=== PATIENT | male | born 1930 | race Caucasian/White ===

== ENCOUNTER 2017-02-03 17:35 | Inpatient (IN) | payer MEDICARE, BC ==
[~2017-02-03] VITALS: Ht 182.9 cm; Wt 91.7 kg
[~2017-02-03 17:35] MED LIST: ACET-2321 PO; ASPI-557 PO; CALC-946 PO; CALC500T7 PO; CARV25TA PO; FERR324T4 PO; FLUT16SP EA NOSTRIL; FURO20TA4 PO; PANT40TA25 PO; POTA10TA16 PO; PRAV40TA3 PO; PRED5TAB PO; RIVA20TA PO; SENN-152 PO; SIME125C54 PO; VERA240T PO; VIT1CAPS47 PO; [UNRECOGNIZED DRUG - CODE] PO
--- OUTSIDE RECORDS SUMMARY | 2017-02-03 17:40 | XMS REPORT | CCD ---
Author Author SCOTT BOYKIN Organization Unknown Address [address], [place] [id number] Phone 0 Care Team Providers Care Utilization Management Rn Name Role Phone TORSTEN OLIVARES Attending Physician 0 Vital Signs Unknown or Not Available. Allergies Allergy Code Allergy Type Reaction Status No Known Drug Allergies 0 No known drug allergies Active Procedures Unknown or Not Available. History of Immunizations Unknown or Not Available. Problems Unknown or Not Available. Results COMP METABOLIC - Collect Date/Time: 04/19/2016 10:40 Test Name Code Test Result Test Units Test Ref Range GLUCOSE 165 mg/dL L=70 H=110 BUN 36 mg/dL L=7 H=18 CREATININE 1.64 mg/ dL L=0.60 H=1.30 AGE 85 YEARS GFR 40.2 SODIUM 137 mmol/L L=136 H=145 POTASSIUM 3.8 mmol/ L L=3.5 H=5.1 CHLORIDE 102 mmol/L L=98 H=107 CO2 23 mmol/L L=21 H=32 CALCIUM 9.0 mg/dL L=8.5 H=10.1 AST 18 U/L L=15 H=37 ALT 23 U/L L=12 H=78 ALKALINE PHOS 66 U/ L L=46 H=116 TOTAL PROTEIN 7.1 g/ dL L=6.4 H=8.2 ALBUMIN 3.4 g/dL L=3.4 H=5.0 TOTAL BILI 0.40 mg/ dL L=0.00 H=1.00 PRO B-TYPE NATRIURETIC PEPTIDE - Collect Date/Time: 04/19/2016 10:40 Test Name Code Test Result Test Units Test Ref Range PBNP 468 pg/mL L=0 H=450 CBC W/ DIFF - Collect Date/Time: 04/19/2016 10:40 Test Name Code Test Result Test Units Test Ref Range WBC 14.1 x10^3 L=4.8 H=10.8 RBC 2.48 x10^6 L=4.70 H=6.10 HEMOGLOBIN 7.7 g/dL L=14.0 H=18.0 HEMATOCRIT 22.9 % L=42.0 H=52.0 MCV 92 fL L=80 H=100 MCH 30.8 pg L=27.0 H=33.0 MCHC 33.5 g/dL L=33.0 H=37.0 RDW 14.2 % L=11.5 H=14.5 PLATELETS 172 x10^3 L=150 H=450 MPV 9.2 fL L=7.8 H=11.0 NEUTROPHILS 79.2 % L=40.0 H=80.0 LYMPHOCYTES 11.4 % L=20.0 H=45.0 MONOCYTES 6.7 % L=0.0 H=10.0 EOSINOPHILS 2.7 % L=0.0 H=5.0 BASOPHILS 0.0 % L=0.0 H=2.0 SEG 83 %% L=40 H=80 BAND 2 %% L=0 H=5 LYMPH 8 %% L=20 H=45 MONO 2 %% L=0 H=10 EOS 4 %% L=0 H=5 BASO 1 %% L=0 H=2 ATYP LYMPH 0 %% L=0 H=10 META 0 %% L=0 H=1 REFLEX MAN DIFF YES N/A RBC MORPHOLOGY SEE BELOW N/A ANISO SLIGHT N/A NORMAL: NONE SEEN POIK NONE SEEN N/A NORMAL: NONE SEEN HYPO SLIGHT N/A NORMAL: NONE SEEN MICRO NONE SEEN N/A NORMAL: NONE SEEN MACRO NONE SEEN N/A NORMAL: NONE SEEN POLY NONE SEEN N/A NORMAL: NONE SEEN TOXIC GRAN NONE SEEN N/A NORMAL: NONE SEEN NUCLEATED RBC NONE SEEN N/A NORMAL: NONE SEEN Active Medications Medication Code Dose Units Frequency Route Modification Start Date/Time Aspir Low 81MG Oral Tablet, Enteric Coated [id number] 81 MILLIGRAMS DAILY ORAL 04/20/2016 10:56 Prescription Detail 81 MILLIGRAMS ORAL DAILY Klor-Con M20 20MEQ Oral Tablet, Extended Release [id number] 20 MEQ TWICE A DAY ORAL 04/20/2016 10:56 Prescription Detail 20 MEQ ORAL TWICE A DAY Vitamin D3 5000 IU Oral Tablet [id number] 5000 IU DAILY ORAL 04/20/2016 10:56 Prescription Detail 5000 IU ORAL DAILY Docusate Sodium and Senna 50MG-8.6MG Oral Tablet [id number] 1 EACH AT BEDTIME ORAL 12/31/2015 12:54 Prescription Detail 1 EACH ORAL AT BEDTIME Ferrous Sulfate 325MG Oral Tablet [id number] 325 MILLIGRAMS TWICE A DAY ORAL 12/31/2015 12:54 Prescription Detail 325 MILLIGRAMS ORAL TWICE A DAY Norvasc 10MG Oral Tablet [id number] 10 MILLIGRAMS DAILY ORAL 12/31/2015 12:54 Prescription Detail 10 MILLIGRAMS ORAL DAILY predniSONE 10MG Oral Tablet [id number] 10 MILLIGRAMS DAILY ORAL 12/31/2015 12:54 Prescription Detail 10 MILLIGRAMS ORAL DAILY Fluticasone Prop 0.05MG/Actuation Nasal [place] 682544 2 [place] AT BEDTIME NASAL 12/04/2015 15:10 Prescription Detail 2 [place] NASAL AT BEDTIME PreserVision Areds Oral Capsule, Liquid Filled [id number] 1 EACH DAILY ORAL 12/04/2015 15:10 Prescription Detail 1 EACH ORAL DAILY Lasix 40MG Oral Tablet [id number] 40 MILLIGRAMS DAILY ORAL 10/14/2015 12:24 Prescription Detail 40 MILLIGRAMS ORAL DAILY Colace 100MG Oral Capsule, Liquid Filled [id number] 100 MILLIGRAMS bid BY MOUTH 06/25/2015 10:30 Prescription Detail TAKE 100 MILLIGRAMS BY MOUTH bid Digoxin 0.125MG Oral Tablet [id number] 0.125 MILLIGRAMS DAILY ORAL 06/25/2015 10:29 Prescription Detail 0.125 MILLIGRAMS ORAL DAILY Nature's Blend Vitamin D3 5000IU Oral Tablet [id number] 7103 INTERNATIONAL UNITS DAILY ORAL 2014 10:29 Prescription Detail 5000 INTERNATIONAL UNITS ORAL DAILY Pantoprazole Sodium 40MG Oral Tablet, Enteric Coated [id number] 40 MILLIGRAMS DAILY ORAL 06/25/2015 10:29 Prescription Detail 40 MILLIGRAMS ORAL DAILY Pravastatin 40MG Oral Tablet [id number] 40 MILLIGRAMS DAILY ORAL 06/25/2015 10:29 Prescription Detail 40 MILLIGRAMS ORAL DAILY ZyrTEC 10MG Oral Tablet [id number] 10 MILLIGRAMS NEEDED ORAL 06/25/2015 10:29 Prescription Detail 10 MILLIGRAMS ORAL NEEDED Medications Administered During Visit Unknown or Not Available. Encounters Unknown or Not Available. Social History Smoking Status Code Start Date End Date Former smoker [id number] Patient Decision Aids Unknown or Not Available. Discharge Instructions You were admitted to [facility] on 04/19/2016 10:21 You had the following tests done: CBC W / DIFF COMP METABOLIC PRO B-TYPE NATRIURETIC PEPTIDE You were discharged from [facility] on 04/19/2016 10:21 Should you have any questions prior to discharge, please contact a member of your healthcare team. If you have left the hospital and have any questions, please contact your primary care physician. Chief Complaint and Reason For Visit Chief Complaint Date of Onset LAB Function Status Unknown or Not Available. Plan of Care Unknown or Not Available. Referral/Transition of Care Unknown or Not Available.
--- OUTSIDE RECORDS SUMMARY | 2017-02-03 17:41 | XMS REPORT | CCD ---
Author Author SERGIO TELLEZ Organization Unknown Address [address] [place], [place] [address] Phone 0 Care Team Providers Care Die Maker Stamping Name Role Phone TORSTEN OLIVARES Attending Physician 0 Vital Signs Unknown or Not Available. Allergies Allergy Code Allergy Type Reaction Status No Known Drug Allergies 0 No known drug allergies Active Procedures Unknown or Not Available. History of Immunizations Unknown or Not Available. Problems Unknown or Not Available. Results Unknown or Not Available. Medications Unknown or Not Available. Medications Administered Unknown or Not Available. Encounters Unknown or Not Available. Social History Smoking Status Code Start Date End Date Former smoker [id number] Patient Decision Aids Unknown or Not Available. Discharge Instructions You were admitted to [facility] on 05/27/2014. You were discharged from [facility] on 05/27/2014. Should you have any questions prior to discharge, please contact a member of your healthcare team. If you have left the hospital and have any questions, please contact your primary care physician. Chief Complaint and Reason For Visit Chief Complaint Date of Onset MRI LOW EXT JNT WO CONTR LT Function Status Unknown or Not Available. Plan of Care Unknown or Not Available. Referral/Transition of Care Unknown or Not Available.
--- OUTSIDE RECORDS SUMMARY | 2017-02-03 17:41 | XMS REPORT | CCD ---
Author Author SCOTT BOYKIN Organization Unknown Address [address], [place] [id number] Phone 0 Care Team Providers Care Marine Equipment Design Engineer Name Role Phone TORSTEN OLIVARES Attending Physician 0 C., N Nurse Assisstant 0 T., A Nurse Assisstant 0 M., R Nurse Assisstant 0 Vital Signs Vital Sign Value Unit Date/Time Recent/Initial? BP Systolic 120 mmHg 04/19/2016 12:05 Initial VS BP Diastolic 68 mmHg 04/19/2016 12:05 Initial VS Respiratory Rate 20 bpm 04/19/2016 12:05 Initial VS Heart Rate 91 bpm 12:05 Initial VS O2 % BldC Oximetry 96 % 04/19/2016 12:05 Initial VS Body Temperature 98.4 degrees 04/19/2016 12:05 Initial VS Weight Measured 202 lbs 04/19/2016 12:22 Initial VS Height 72 in 2015 12:22 Initial VS BMI (Body Mass Index) 27.4 kg/m^2 04/19/2016 12:22 Initial VS BSA (Body Surface Area) 2.16 m^2 04/19/2016 12:22 Initial VS BP Systolic 148 mmHg 04/20/2016 08:27 Most Recent VS BP Diastolic 76 mmHg 04/20/2016 08:27 Most Recent VS Respiratory Rate 18 bpm 04/20/2016 08:27 Most Recent VS Heart Rate 88 bpm 11/2015 08:27 Most Recent VS O2 % BldC Oximetry 95 % 04/20/2016 08:27 Most Recent VS Body Temperature 97.9 degrees 04/20/2016 08:27 Most Recent VS Allergies Allergy Code Allergy Type Reaction Status No Known Drug Allergies 0 No known drug allergies Active Procedures Unknown or Not Available. History of Immunizations Unknown or Not Available. Problems Unknown or Not Available. Results BASIC METABOLIC - Collect Date/Time: 04/20/2016 07:12 Test Name Code Test Result Test Units Test Ref Range GLUCOSE 132 mg/dL L=70 H=110 BUN 27 mg/dL L=7 H=18 CREATININE 1.47 mg/ dL L=0.60 H=1.30 AGE 85 YEARS GFR 45.6 SODIUM 138 mmol/L L=136 H=145 POTASSIUM 3.5 mmol/ L L=3.5 H=5.1 CHLORIDE 101 mmol/L L=98 H=107 CO2 27 mmol/L L=21 H=32 CALCIUM 8.7 mg/dL L=8.5 H=10.1 PRO B-TYPE NATRIURETIC PEPTIDE - Collect Date/Time: 04/20/2016 07:12 Test Name Code Test Result Test Units Test Ref Range PBNP 484 pg/mL L=0 H=450 CBC W/ DIFF - Collect Date/Time: 04/20/2016 07:12 Test Name Code Test Result Test Units Test Ref Range WBC 13.9 x10^3 L=4.8 H=10.8 RBC 3.06 x10^6 L=4.70 H=6.10 HEMOGLOBIN 9.5 g/dL L=14.0 H=18.0 HEMATOCRIT 27.7 % L=42.0 H=52.0 MCV 91 fL L=80 H=100 MCH 31.1 pg L=27.0 H=33.0 MCHC 34.4 g/dL L=33.0 H=37.0 RDW 14.1 % L=11.5 H=14.5 PLATELETS 163 x10^3 L=150 H=450 MPV 9.0 fL L=7.8 H=11.0 NEUTROPHILS 78.6 % L=40.0 H=80.0 LYMPHOCYTES 12.4 % L=20.0 H=45.0 MONOCYTES 6.6 % L=0.0 H=10.0 EOSINOPHILS 2.4 % L=0.0 H=5.0 BASOPHILS 0.0 % L=0.0 H=2.0 REFLEX MAN DIFF NO N /A BB ABO/RH - Collect Date/Time: 04/19/2016 10:43 Test Name Code Test Result Test Units Test Ref Range ABO/RH A POSITIVE N/ A BB ANTIBODY SCREEN - Collect Date/Time: 04/19/2016 10:43 Test Name Code Test Result Test Units Test Ref Range AB SCREEN NEGATIVE N /A NORMAL: NEGATIVE BB CROSSMATCH IS - Collect Date/Time: 04/19/2016 10:43 Test Name Code Test Result Test Units Test Ref Range ABO/RH A POSITIVE N/ A AB SCREEN NEGATIVE N /A DONOR ABO/Rh A POSITIVE N/A CROSSMATCH COMPATIBLE N/A PREV REACTION NO N/ A BB CROSSMATCH IS - Collect Date/Time: 04/19/2016 10:43 Test Name Code Test Result Test Units Test Ref Range ABO/RH A POSITIVE N/ A AB SCREEN NEGATIVE N /A DONOR ABO/Rh A POSITIVE N/A CROSSMATCH COMPATIBLE N/A PREV REACTION NO N/ A BB TYPE & HOLD - Collect Date/Time: 04/19/2016 10:43 Test Name Code Test Result Test Units Test Ref Range TYPE & HOLD 2 UNITS N/A ABO/RH A POSITIVE N/ A AB SCREEN NEGATIVE N /A PREV REACTION NO N/ A OCCULT BLOOD STOOL IMMUNOASSAY - Collect Date/Time: 04/19/2016 22:40 Test Name Code Test Result Test Units Test Ref Range OCC BLOOD IM POSITIVE N/A NORMAL: NEGATIVE Active Medications Medication Code Dose Units Frequency Route Modification Start Date/Time Aspir Low 81MG Oral Tablet, Enteric Coated [id number] 81 MILLIGRAMS DAILY ORAL 04/20/2016 10:56 Prescription Detail 81 MILLIGRAMS ORAL DAILY Klor-Con M20 20MEQ Oral Tablet, Extended Release [id number] 20 MEQ TWICE A DAY ORAL 04/20/2016 10:56 Prescription Detail 20 MEQ ORAL TWICE A DAY Vitamin D3 5000 IU Oral Tablet [id number] 5000 IU DAILY ORAL 04/20/2016 10:56 Prescription Detail 5000 IU ORAL DAILY Docusate Sodium and Senna 50MG-8.6MG Oral Tablet [id number] 1 EACH AT BEDTIME ORAL 12/31/2015 12:54 Prescription Detail 1 EACH ORAL AT BEDTIME Ferrous Sulfate 325MG Oral Tablet [id number] 325 MILLIGRAMS TWICE A DAY ORAL 12/31/2015 12:54 Prescription Detail 325 MILLIGRAMS ORAL TWICE A DAY Norvasc 10MG Oral Tablet [id number] 10 MILLIGRAMS DAILY ORAL 12/31/2015 12:54 Prescription Detail 10 MILLIGRAMS ORAL DAILY predniSONE 10MG Oral Tablet [id number] 10 MILLIGRAMS DAILY ORAL 12/31/2015 12:54 Prescription Detail 10 MILLIGRAMS ORAL DAILY Fluticasone Prop 0.05MG/Actuation Nasal [place] 907010 2 [place] AT BEDTIME NASAL 12/04/2015 15:10 Prescription Detail 2 [place] NASAL AT BEDTIME PreserVision Areds Oral Capsule, Liquid Filled 98650282921 1 EACH DAILY ORAL 12/04/2015 15:10 Prescription Detail 1 EACH ORAL DAILY Lasix 40MG Oral Tablet [id number] 40 MILLIGRAMS DAILY ORAL 10/14/2015 12:24 Prescription Detail 40 MILLIGRAMS ORAL DAILY Colace 100MG Oral Capsule, Liquid Filled [id number] 100 MILLIGRAMS bid BY MOUTH 06/25/2015 10:30 Prescription Detail TAKE 100 MILLIGRAMS BY MOUTH bid Digoxin 0.125MG Oral Tablet [id number] 0.125 MILLIGRAMS DAILY ORAL 06/25/2015 10:29 Prescription Detail 0.125 MILLIGRAMS ORAL DAILY Nature's Blend Vitamin D3 5000IU Oral Tablet [id number] 8109 INTERNATIONAL UNITS DAILY ORAL 2014 10:29 Prescription Detail 5000 INTERNATIONAL UNITS ORAL DAILY Pantoprazole Sodium 40MG Oral Tablet, Enteric Coated [id number] 40 MILLIGRAMS DAILY ORAL 06/25/2015 10:29 Prescription Detail 40 MILLIGRAMS ORAL DAILY Pravastatin 40MG Oral Tablet [id number] 40 MILLIGRAMS DAILY ORAL 06/25/2015 10:29 Prescription Detail 40 MILLIGRAMS ORAL DAILY ZyrTEC 10MG Oral Tablet [id number] 10 MILLIGRAMS NEEDED ORAL 06/25/2015 10:29 Prescription Detail 10 MILLIGRAMS ORAL NEEDED Medications Administered During Visit Medication Dose Units Frequency Route Date/Time of Last Dose FUROSEMIDE (LASIX) INJ : 20MG/2ML 40 MG X1 IVP 04/19/2016 18: 26 K (KLOR CON) TAB : 20 MEQ 20 MEQ BID ORAL 04/20/2016 10:35 PREDNISONE (DELTASONE) TAB : 10MG 10 MG DAILY PO 04/20/2016 10: 35 AMLODIPINE (NORVASC) TAB : 5MG 10 MG QD PO 04/20/2016 10:35 NF-Lasix Tablet 40MG 40 MG DAILY ORAL 04/20/2016 10:35 DIGOXIN (LANOXIN) TAB :0.125MG 0.125 MG DAILY ORAL 04/20/2016 10:35 PROTONIX (PANTOPRAZOLE) INJ: 40 MG 40 MG X1 IVP 04/20/2016 11: 17 NS 0.9% INJ : 10ML VIAL 2 EA PRN IVP 04/20/2016 11:19 Encounters Encounter Diagnosis Diagnosis Code Start Date Anemia, unspecified D649 04/19/2016 Social History Smoking Status Code Start Date End Date Former smoker [id number] Patient Decision Aids Unknown or Not Available. Discharge Instructions You were admitted to [facility] on 04/19/2016 12:00 with a principal diagnosis of Anemia, unspecified You had the following tests done: BASIC METABOLIC BB ABO/RH BB ANTIBODY SCREEN BB CROSSMATCH IS BB CROSSMATCH IS BB TYPE & HOLD CBC W/ DIFF OCCULT BLOOD STOOL IMMUNOASSAY PRO B-TYPE NATRIURETIC PEPTIDE You were discharged from [facility] on 04/20/2016 13:13 Should you have any questions prior to discharge, please contact a member of your healthcare team. If you have left the hospital and have any questions, please contact your primary care physician. DIET: REGULAR. Discharge To: Home. Accompanied By: spouse Activities: activity as tolerated Medication Instruction:Pt/Family Member: continue current medications; no changes were made Returned/Dispensed to Patient: medications, clothing, cane, glasses Referral: Dr. Oneill 04/26/16 at 2:30; check in [facility] Chief Complaint and Reason For Visit Chief Complaint Date of Onset SHORTNESS OF BREATH Function Status Unknown or Not Available. Plan of Care Unknown or Not Available. Referral/Transition of Care Unknown or Not Available.
--- OUTSIDE RECORDS SUMMARY | 2017-02-03 17:41 | XMS REPORT | CCD ---
Author Author SCOTT BOYKIN Organization Unknown Address [address], [place] [phone] Phone 0 Care Team Providers Care Portable Grinding Machine Operator Name Role Phone JAKE MCCRAY Attending Physician 0 JIE TELLEZ Physician [phone] Vital Signs Unknown or Not Available. Allergies Allergy Code Allergy Type Reaction Status No Known Drug Allergies 0 No known drug allergies Active Procedures Unknown or Not Available. History of Immunizations Unknown or Not Available. Problems Unknown or Not Available. Results CULTURE BLOOD - Collect Date/Time: 01/18/2016 11:45 Test Name Code Test Result Test Units Test Ref Range SOURCE: LEFT AC N/A Blood Culture, Routine 600-7 Final report N/A CULTURE BLOOD - Collect Date/Time: 01/18/2016 11:40 Test Name Code Test Result Test Units Test Ref Range SOURCE: RIGHT AC N/ A Blood Culture, Routine 600-7 Final report N/A Active Medications Medication Code Dose Units Frequency Route Modification Start Date/Time Docusate Sodium and Senna 50MG-8.6MG Oral Tablet [id number] 1 EACH AT BEDTIME ORAL 12/31/2015 12:54 Prescription Detail 1 EACH ORAL AT BEDTIME Ferrous Sulfate 325MG Oral Tablet [id number] 325 MILLIGRAMS TWICE A DAY ORAL 12/31/2015 12:54 Prescription Detail 325 MILLIGRAMS ORAL TWICE A DAY Klor-Con M20 20MEQ Oral Tablet, Extended Release 100008 40 MEQ TWICE A DAY ORAL 12/31/2015 12:54 Prescription Detail 40 MEQ ORAL TWICE A DAY Norvasc 10MG Oral Tablet [id number] 10 MILLIGRAMS DAILY ORAL 12/31/2015 12:54 Prescription Detail 10 MILLIGRAMS ORAL DAILY predniSONE 10MG Oral Tablet [id number] 10 MILLIGRAMS DAILY ORAL 12/31/2015 12:54 Prescription Detail 10 MILLIGRAMS ORAL DAILY Fluticasone Prop 0.05MG/Actuation Nasal [place] 038156 2 [place] AT BEDTIME NASAL 12/04/2015 15:10 Prescription Detail 2 [place] NASAL AT BEDTIME PreserVision Areds Oral Capsule, Liquid Filled [id number] 1 EACH DAILY ORAL 12/04/2015 15:10 Prescription Detail 1 EACH ORAL DAILY Lasix 40MG Oral Tablet [id number] 40 MILLIGRAMS DAILY ORAL 10/14/2015 12:24 Prescription Detail 40 MILLIGRAMS ORAL DAILY Colace 100MG Oral Capsule, Liquid Filled [id number] 100 MILLIGRAMS bid BY MOUTH 06/25/2015 10:30 Prescription Detail TAKE 100 MILLIGRAMS BY MOUTH bid Aspirin 81MG Oral Tablet [id number] 81 MILLIGRAMS DAILY ORAL 06/25/2015 10:29 Prescription Detail 81 MILLIGRAMS ORAL DAILY Digoxin 0.125MG Oral Tablet [id number] 0.125 MILLIGRAMS DAILY ORAL 06/25/2015 10:29 Prescription Detail 0.125 MILLIGRAMS ORAL DAILY Nature's Blend Vitamin D3 5000IU Oral Tablet [id number] 6226 INTERNATIONAL UNITS DAILY ORAL 2014 10:29 Prescription Detail 5000 INTERNATIONAL UNITS ORAL DAILY Pantoprazole Sodium 40MG Oral Tablet, Enteric Coated [id number] 40 MILLIGRAMS DAILY ORAL 06/25/2015 10:29 Prescription Detail 40 MILLIGRAMS ORAL DAILY Pravastatin 40MG Oral Tablet [id number] 40 MILLIGRAMS DAILY ORAL 06/25/2015 10:29 Prescription Detail 40 MILLIGRAMS ORAL DAILY Xarelto 20MG Oral Tablet [id number] 20 MILLIGRAMS QD ORAL 06/25/2015 10:29 Prescription Detail 20 MILLIGRAMS ORAL QD ZyrTEC 10MG Oral Tablet [id number] 10 MILLIGRAMS NEEDED ORAL 06/25/2015 10:29 Prescription Detail 10 MILLIGRAMS ORAL NEEDED Medications Administered During Visit Unknown or Not Available. Encounters Encounter Diagnosis Diagnosis Code Start Date Sepsis, unspecified organism A419 2015 Social History Smoking Status Code Start Date End Date Former smoker [id number] Patient Decision Aids Unknown or Not Available. Discharge Instructions You were admitted to [facility] on 01/18/2016 11:23 with a principal diagnosis of Sepsis, unspecified organism You had the following tests done: CULTURE BLOOD CULTURE BLOOD You were discharged from [facility] on 01/18/2016 11:23 Should you have any questions prior to discharge, please contact a member of your healthcare team. If you have left the hospital and have any questions, please contact your primary care physician. Chief Complaint and Reason For Visit Unknown or Not Available. Function Status Unknown or Not Available. Plan of Care Unknown or Not Available. Referral/Transition of Care Unknown or Not Available.
--- OUTSIDE RECORDS SUMMARY | 2017-02-03 17:41 | XMS REPORT | CCD ---
Author Author SCOTT BOYKIN Organization Unknown Address [address], [place] [id number] Phone 0 Care Team Providers Care Transfer Clerk Name Role Phone CINDY HAZEL Attending Physician [phone] Gus LUCIO Rounding Physician [phone] Vital Signs Unknown or Not Available. Allergies Allergy Code Allergy Type Reaction Status No Known Drug Allergies 0 No known drug allergies Active Procedures Unknown or Not Available. History of Immunizations Unknown or Not Available. Problems Unknown or Not Available. Results CBC W/ DIFF - Collect Date/Time: 04/27/2016 08:15 Test Name Code Test Result Test Units Test Ref Range WBC 9.7 x10^3 L=4.8 H=10.8 RBC 3.15 x10^6 L=4.70 H=6.10 HEMOGLOBIN 9.6 g/dL L=14.0 H=18.0 HEMATOCRIT 28.3 % L=42.0 H=52.0 MCV 90 fL L=80 H=100 MCH 30.7 pg L=27.0 H=33.0 MCHC 34.0 g/dL L=33.0 H=37.0 RDW 14.8 % L=11.5 H=14.5 PLATELETS 189 x10^3 L=150 H=450 MPV 9.2 fL L=7.8 H=11.0 NEUTROPHILS 72.9 % L=40.0 H=80.0 LYMPHOCYTES 12.7 % L=20.0 H=45.0 MONOCYTES 9.2 % L=0.0 H=10.0 EOSINOPHILS 5.1 % L=0.0 H=5.0 BASOPHILS 0.1 % L=0.0 H=2.0 REFLEX MAN DIFF NO N /A Active Medications Medication Code Dose Units Frequency Route Modification Start Date/Time Aspir Low 81MG Oral Tablet, Enteric Coated [id number] 81 MILLIGRAMS DAILY ORAL 04/20/2016 10:56 Prescription Detail 81 MILLIGRAMS ORAL DAILY Klor-Con M20 20MEQ Oral Tablet, Extended Release [id number] 20 MEQ TWICE A DAY ORAL 04/20/2016 10:56 Prescription Detail 20 MEQ ORAL TWICE A DAY Vitamin D3 5000 IU Oral Tablet [id number] 5000 IU DAILY ORAL 04/20/2016 10:56 Prescription Detail 5000 IU ORAL DAILY Docusate Sodium and Senna 50MG-8.6MG Oral Tablet [id number] 1 EACH AT BEDTIME ORAL 12/31/2015 12:54 Prescription Detail 1 EACH ORAL AT BEDTIME Ferrous Sulfate 325MG Oral Tablet [id number] 325 MILLIGRAMS TWICE A DAY ORAL 12/31/2015 12:54 Prescription Detail 325 MILLIGRAMS ORAL TWICE A DAY Norvasc 10MG Oral Tablet [id number] 10 MILLIGRAMS DAILY ORAL 12/31/2015 12:54 Prescription Detail 10 MILLIGRAMS ORAL DAILY predniSONE 10MG Oral Tablet [id number] 10 MILLIGRAMS DAILY ORAL 12/31/2015 12:54 Prescription Detail 10 MILLIGRAMS ORAL DAILY Fluticasone Prop 0.05MG/Actuation Nasal [place] 706530 2 [place] AT BEDTIME NASAL 12/04/2015 15:10 Prescription Detail 2 [place] NASAL AT BEDTIME PreserVision Areds Oral Capsule, Liquid Filled [id number] 1 EACH DAILY ORAL 12/04/2015 15:10 Prescription Detail 1 EACH ORAL DAILY Lasix 40MG Oral Tablet [id number] 40 MILLIGRAMS DAILY ORAL 10/14/2015 12:24 Prescription Detail 40 MILLIGRAMS ORAL DAILY Colace 100MG Oral Capsule, Liquid Filled [id number] 100 MILLIGRAMS bid BY MOUTH 06/25/2015 10:30 Prescription Detail TAKE 100 MILLIGRAMS BY MOUTH bid Digoxin 0.125MG Oral Tablet [id number] 0.125 MILLIGRAMS DAILY ORAL 06/25/2015 10:29 Prescription Detail 0.125 MILLIGRAMS ORAL DAILY Nature's Blend Vitamin D3 5000IU Oral Tablet [id number] 0124 INTERNATIONAL UNITS DAILY ORAL 2014 10:29 Prescription Detail 5000 INTERNATIONAL UNITS ORAL DAILY Pantoprazole Sodium 40MG Oral Tablet, Enteric Coated [id number] 40 MILLIGRAMS DAILY ORAL 06/25/2015 10:29 Prescription Detail 40 MILLIGRAMS ORAL DAILY Pravastatin 40MG Oral Tablet [id number] 40 MILLIGRAMS DAILY ORAL 06/25/2015 10:29 Prescription Detail 40 MILLIGRAMS ORAL DAILY ZyrTEC 10MG Oral Tablet [id number] 10 MILLIGRAMS NEEDED ORAL 06/25/2015 10:29 Prescription Detail 10 MILLIGRAMS ORAL NEEDED Medications Administered During Visit Unknown or Not Available. Encounters Encounter Diagnosis Diagnosis Code Start Date Anemia, unspecified D649 04/27/2016 Social History Smoking Status Code Start Date End Date Former smoker [id number] Patient Decision Aids Unknown or Not Available. Discharge Instructions You were admitted to [facility] on 04/27/2016 08:09 with a principal diagnosis of Anemia, unspecified You had the following tests done: CBC W / DIFF You were discharged from [facility] on 04/27/2016 08:09 Should you have any questions prior to [...]
--- OUTSIDE RECORDS SUMMARY | 2017-02-03 17:41 | XMS REPORT | Referral Summary ---
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 ramus, SVG to OM, SVG to RCA , SVG to distal circumflex, MARROQUIN to LAD Discharge Diagnosis: Essential hypertension Discharge Diagnosis: Respiratory failure Discharge Diagnosis: Hx of aortic valve replacement with tissue graft Discharge Diagnosis: ASHD (arteriosclerotic heart disease) Discharge Diagnosis: Sepsis Discharge Disposition: 01-Home or Self Care Attending Physician: Mandy Klein MD Admitting Physician: Mandy Klein MD Vital Signs Most recent to 1 oldest [Reference Range]: Temperature Axillary 36.4 degC [35.2-36.7 degC] (10/08/15 4:15 AM) Temperature Oral 36.4 degC [35.8-37.3 degC] (10/09/15 12:06 PM) Apical Heart Rate 60 bpm [60-100 bpm] (10/09/15 2:32 PM) Peripheral Pulse 62 bpm Rate [60-100 bpm] (10/09/15 12:06 PM) Heart Rate Monitored 60 bpm [60-100 bpm] (10/08/15 8:16 PM) Respiratory Rate 18 br/min [14-20 br/min] (10/09/15 8:32 AM) Blood Pressure 139/67 mmHg [90-140/60-90 mmHg] (10/09/15 12:06 PM) SpO2 95 % (10/09/15 12:06 PM) Problem List Condition Effective Dates Status Health Status Informant At risk of pressure Active sore(Confirmed) ASHD Active (arteriosclerotic heart disease)(Confirmed) Dyslipidemia(Confirm Active ed) Essential Active hypertension(Confirm ed) H/O cardiac Active pacemaker(Confirmed) Hx of Active CABG(Confirmed) Hx of aortic valve Active replacement with tissue graft(Confirmed) Knowledge Active deficit(Confirmed)1 PAF (paroxysmal Active atrial fibrillation)(Confir med) Respiratory Active failure(Confirmed) Sepsis(Confirmed) Active Tissue perfusion Active alteration(Confirmed )2 1Problem added automatically by system based on initiation of Knowledge Deficit Plan of Care 2Problem added automatically by system based on initiation of Tissue Perfusion Cerebral Plan of Care Allergies, Adverse Reactions, Alerts No Known Medication Allergies Medications acetaminophen 650 mg, Oral, q4hr, as needed for pain, 0 Refill(s) Start Date: 10/06/15 Status: Ordered ampicillin 1 g injection 12 g, IV, q24hr, X 6 days, # 6 Each, 0 Refill(s), other reason (Rx) Start Date: 10/09/15 Stop Date: 10/15/15 Status: Ordered aspirin 81 mg, Oral, Daily, 0 Refill(s) Start Date: 10/06/15 Status: Ordered Colace 100 mg, Oral, BID, 0 Refill(s) Start Date: 10/06/15 Status: Ordered ferrous sulfate 325 mg, Oral, BID, 0 Refill(s) Start Date: 10/06/15 Status: Ordered Heparin Lock Flush 10 units/mL intravenous solution 10 units 1 mL, IV Push, BID, 0 Refill(s) Start Date: 10/09/15 Status: Ordered Heparin Lock Flush 10 units/mL intravenous solution 10 units 1 mL, IV Push, BID, 0 Refill(s) Start Date: 10/09/15 Status: Ordered Klor-Con M20 20 mEq, Oral, BID, 0 Refill(s) Start Date: 10/06/15 Status: Ordered Lanoxin 187.5 mcg, Oral, Daily, 0 Refill(s) Start Date: 10/06/15 Status: Ordered Lasix 40 mg, Oral, Daily, 0 Refill(s) Start Date: 10/06/15 Status: Ordered Lopressor 50 mg, Oral, BID, 0 Refill(s) Start Date: 10/06/15 Status: Ordered Norvasc 10 mg, Oral, Daily, 0 Refill(s) Start Date: 10/06/15 Status: Ordered Pravachol 40 mg, Oral, Bedtime (once a day), 0 Refill(s) Start Date: 10/06/15 Status: Ordered predniSONE 10 mg, Oral, Daily, 0 Refill(s) Start Date: 10/06/15 Status: Ordered Protonix 40 mg, Oral, Daily, 0 Refill(s) Start Date: 10/06/15 Status: Ordered Proventil HFA 90 mcg/inh inhalation aerosol 2-6 puffs, Inhalation, q2hr, Shortness of Breath/Wheezing, 0 Refill(s) Start Date: 10/09/15 Status: Ordered Senokot S 50 mg-8.6 mg oral tablet 1 tabs, Oral, Daily, Constipation, 0 Refill(s) Start Date: 10/06/15 Status: Ordered Vitamin D3 5,000 Intl_Units, Oral, Daily, 0 Refill(s) Start Date: 10/06/15 Status: Ordered Xarelto 20 mg, Oral, qPM, with food, 0 Refill(s) Start Date: 10/06/15 Status: Ordered ZyrTEC 10 mg, Oral, Daily, 0 Refill(s) Start Date: 10/06/15 Status: Ordered Results Hematology Most recent to 1 oldest [Reference Range]: WBC [4.8-10.8 10.3 10*3/uL 10*3/uL] (10/09/15 6:57 AM) RBC [4.60-6.20] 3.41 *LOW* (10/09/15 6:57 AM) Hgb [14.0-18.0 10.2 gm/dL gm/dL] *LOW* (10/09/15 6:57 AM) Hct [42.0-52.0 %] 32.0 % *LOW* (10/09/15 6:57 AM) MCV [82.0-99.0 fL] 93.8 fL (10/09/15 6:57 AM) MCH [27.0-32.0 pg] 29.9 pg (10/09/15 6:57 AM) MCHC [32.0-36.0 31.9 gm/dL gm/dL] *LOW* (10/09/15 6:57 AM) RDW [11.5-14.5 %] 14.0 % (10/09/15 6:57 AM) Platelet [150-400 247 10*3/uL 10*3/uL] (10/09/15 6:57 AM) MPV [9.4-12.3 fL] 11.1 fL (10/09/15 6:57 AM) Chemistry Most recent to 1 oldest [Reference Range]: Sodium Lvl [136-144 135 mEq/L mEq/L] *LOW* (10/09/15 6:57 AM) Potassium Lvl 3.4 mEq/L [3.6-5.1 mEq/L] *LOW* (10/09/15 6:57 AM) Chloride [99-109 101 mEq/L mEq/L] (10/09/15 6:57 AM) CO2 [22-32 mEq/L] 26 mEq/L (10/09/15 6:57 AM) AGAP [3-20] 8 (10/09/15 6:57 AM) BUN [4-20 mg/dL] 25 mg/dL *HI* (10/09/15 6:57 AM) Glucose Lvl [70-100 100 mg/dL mg/dL] (10/09/15 6:57 AM) Creatinine Lvl 1.17 mg/dL [0.64-1.27 mg/dL] (10/09/15 6:57 AM) eGFR [>60] 59 1 *ABN* (10/09/15 6:57 AM) Calcium Lvl 8.6 mg/dL [8.6-10.0 mg/dL] (10/09/15 6:57 AM) Albumin Lvl [3.5-4.8 2.8 gm/dL gm/dL] *LOW* (10/07/15 6:00 AM) Total Protein 6.4 gm/dL [6.1-7.9 gm/dL] (10/07/15 6:00 AM) Globulin [1.9-4.3 3.6 gm/dL gm/dL] (10/07/15 6:00 AM) ALT [17-63 U/L] 26 U/L (10/07/15 6:00 AM) AST [15-41 U/L] 20 U/L (10/07/15 6:00 AM) Alk Phos [26-104 46 U/L U/L] (10/07/15 6:00 AM) Bili Total [0.2-1.2 0.6 mg/dL 2 mg/dL] (10/07/15 6:00 AM) Magnesium Lvl 2.2 mg/dL [1.8-2.5 mg/dL] (10/09/15 6:57 AM) 1Result Comment: Multiply eGFR results by 1.21 for race. 2Result Comment: Naproxen, specifically the metabolite O-desmethylnaproxen, may cause spurious elevation in Total Bilirubin levels. Therapeutic Drug Monitoring Most recent to 1 oldest [Reference Range]: Digoxin Lvl [0.8-2.0 0.7 ng/mL ng/mL] *LOW* (10/07/15 6:00 AM) Microbiology Reports TEST: Blood Culture1 STATUS: Order in Progress BODY SITE: SOURCE: Blood COLLECTED DATE/TIME: 10/07/15 12:22 PM Blood Culture No growth after 12 hours incubation. Nursing unit will be called if growth is detected. - A blood culture drawn through a catheter with a differential time to positivity at least 2 hours sooner than one drawn from a peripheral vein at the same time suggests a catheter-related bloodstream infection. TEST: Blood Culture STATUS: Order in Progress BODY SITE: SOURCE: Blood COLLECTED DATE/TIME: 10/07/15 12:17 PM Blood Culture No growth after 12 hours incubation. Nursing unit will be called if growth is detected. - A blood culture drawn through a catheter with a differential time to positivity at least 2 hours sooner than one drawn from a peripheral vein at the same time suggests a catheter-related bloodstream infection. INTERPRETIVE DATA 1Aerobic bottle ONLY received Immunizations No data available for this section Procedures No data available for this section Social History Social History Type Response Smoking Status Former smoker; Type: Cigarettes; Tobacco use per day: More than 1 pack; Number of years: 60 Assessment and Plan No data available for this section
--- OUTSIDE RECORDS SUMMARY | 2017-02-03 17:41 | XMS REPORT | CCD ---
Author Author SCOTT BOYKIN Organization Unknown Address [address], [place] [id number] Phone 0 Care Team Providers Care Ice Guard Skating Rink Name Role Phone CINDY HAZEL Attending Physician [phone] ZOILA CUBA Rounding Physician [phone] Vital Signs Unknown or Not Available. Allergies Allergy Code Allergy Type Reaction Status No Known Drug Allergies 0 No known drug allergies Active Procedures Unknown or Not Available. History of Immunizations Unknown or Not Available. Problems Unknown or Not Available. Results COMP METABOLIC - Collect Date/Time: 03/03/2016 13:40 Test Name Code Test Result Test Units Test Ref Range GLUCOSE 131 mg/dL L=70 H=110 BUN 27 mg/dL L=7 H=18 CREATININE 1.56 mg/ dL L=0.60 H=1.30 AGE 85 YEARS GFR 42.6 SODIUM 138 mmol/L L=136 H=145 POTASSIUM 5.2 mmol/ L L=3.5 H=5.1 CHLORIDE 104 mmol/L L=98 H=107 CO2 24 mmol/L L=21 H=32 CALCIUM 9.3 mg/dL L=8.5 H=10.1 AST 31 U/L L=15 H=37 ALT 34 U/L L=12 H=78 ALKALINE PHOS 69 U/ L L=46 H=116 TOTAL PROTEIN 7.4 g/ dL L=6.4 H=8.2 ALBUMIN 3.7 g/dL L=3.4 H=5.0 TOTAL BILI 0.40 mg/ dL L=0.00 H=1.00 LIPID PANEL - Collect Date/Time: 03/03/2016 13:40 Test Name Code Test Result Test Units Test Ref Range CHOLESTEROL 141 mg/ dL L=0 H=200 TRIGLYCERIDES 115 mg /dL L=30 H=150 HDL 53 mg/dL L=40 H=60 LDL, CALC 65 mg/dL L=0 H=100 VLDL 23 mg/dL L=0 H=40 CHOL/HDL RISK 2.7 RATIO L=0.0 H=5.0 PT FASTING: NO N/A DIGOXIN - Collect Date/Time: 03/03/2016 13:40 Test Name Code Test Result Test Units Test Ref Range DIGOXIN 0.90 ng/mL L=0.90 H=2.00 CBC W/ DIFF - Collect Date/Time: 03/03/2016 13:40 Test Name Code Test Result Test Units Test Ref Range WBC 10.4 x10^3 L=4.8 H=10.8 RBC 3.52 x10^6 L=4.70 H=6.10 HEMOGLOBIN 11.5 g/ dL L=14.0 H=18.0 HEMATOCRIT 34.0 % L=42.0 H=52.0 MCV 97 fL L=80 H=100 MCH 32.5 pg L=27.0 H=33.0 MCHC 33.7 g/dL L=33.0 H=37.0 RDW 13.9 % L=11.5 H=14.5 PLATELETS 159 x10^3 L=150 H=450 MPV 9.3 fL L=7.8 H=11.0 NEUTROPHILS 79.0 % L=40.0 H=80.0 LYMPHOCYTES 11.7 % L=20.0 H=45.0 MONOCYTES 7.2 % L=0.0 H=10.0 EOSINOPHILS 2.1 % L=0.0 H=5.0 BASOPHILS 0.0 % L=0.0 H=2.0 REFLEX MAN DIFF NO N /A UA AUTO W/ MICRO - Collect Date/Time: 03/03/2016 13:48 Test Name Code Test Result Test Units Test Ref Range COLOR Yellow N/A NORMAL: Yellow APPEARANCE Clear N/ A NORMAL: Clear GLUCOSE Negative N/ A NORMAL: Negative BILIRUBIN Negative N /A NORMAL: Negative KETONE Negative N/A NORMAL: Negative SPEC GRAVITY 1.015 N /A NORMAL: 1.005-1.030 BLOOD Negative N/A NORMAL: Negative PROTEIN Negative N/ A NORMAL: Negative PH 5.0 N/A NORMAL: 5.0-8.0 UROBILINOGEN 0.2 N/ A NORMAL: Negative NITRITE Negative N/ A NORMAL: Negative LEUKOCYTES Negative N/A NORMAL: Negative MICRO RBC None Seen N/A NORMAL: 0-2 MICRO WBC 2-5 N/A NORMAL: 0-2 BACTERIA None Seen N /A NORMAL: None-Trace EPI CELLS 0-5 N/A NORMAL: 0-15 MUCUS Small N/A NORMAL: None-Small AMORPHOUS None Seen N/A NORMAL: None Seen YEAST None Seen N/A NORMAL: None Seen CRYSTALS None Seen N /A NORMAL: None Seen CAST Hyaline C N/A NORMAL: None Seen URINE CULTURE? NO N/ A Active Medications Medication Code Dose Units Frequency Route Modification Start Date/Time Docusate Sodium and Senna 50MG-8.6MG Oral Tablet [id number] 1 EACH AT BEDTIME ORAL 12/31/2015 12:54 Prescription Detail 1 EACH ORAL AT BEDTIME Ferrous Sulfate 325MG Oral Tablet [id number] 325 MILLIGRAMS TWICE A DAY ORAL 12/31/2015 12:54 Prescription Detail 325 MILLIGRAMS ORAL TWICE A DAY Klor-Con M20 20MEQ Oral Tablet, Extended Release [id number] 40 MEQ TWICE A DAY ORAL 12/31/2015 12:54 Prescription Detail 40 MEQ ORAL TWICE A DAY Norvasc 10MG Oral Tablet [id number] 10 MILLIGRAMS DAILY ORAL 12/31/2015 12:54 Prescription Detail 10 MILLIGRAMS ORAL DAILY predniSONE 10MG Oral Tablet [id number] 10 MILLIGRAMS DAILY ORAL 12/31/2015 12:54 Prescription Detail 10 MILLIGRAMS ORAL DAILY Fluticasone Prop 0.05MG/Actuation Nasal [place] [id number] 2 [place] AT BEDTIME NASAL 12/04/2015 15:10 Prescription Detail 2 [place] NASAL AT BEDTIME PreserVision Areds Oral Capsule, Liquid Filled [id number] 1 EACH DAILY ORAL 12/04/2015 15:10 Prescription Detail 1 EACH ORAL DAILY Lasix 40MG Oral Tablet [id number] 40 MILLIGRAMS DAILY ORAL 10/14/2015 12:24 Prescription Detail 40 MILLIGRAMS ORAL DAILY Colace 100MG Oral Capsule, Liquid Filled [id number] 100 MILLIGRAMS bid BY MOUTH 06/25/2015 10:30 Prescription Detail TAKE 100 MILLIGRAMS BY MOUTH bid Aspirin 81MG Oral Tablet [id number] 81 MILLIGRAMS DAILY ORAL 06/25/2015 10:29 Prescription Detail 81 MILLIGRAMS ORAL DAILY Digoxin 0.125MG Oral Tablet [id number] 0.125 MILLIGRAMS DAILY ORAL 06/25/2015 10:29 Prescription Detail 0.125 MILLIGRAMS ORAL DAILY Nature's Blend Vitamin D3 5000IU Oral Tablet [id number] 8125 INTERNATIONAL UNITS DAILY ORAL 2014 10:29 Prescription Detail 5000 INTERNATIONAL UNITS ORAL DAILY Pantoprazole Sodium 40MG Oral Tablet, Enteric Coated 605770 40 MILLIGRAMS DAILY ORAL 06/25/2015 10:29 Prescription Detail 40 MILLIGRAMS ORAL DAILY Pravastatin 40MG Oral Tablet [id number] 40 MILLIGRAMS DAILY ORAL 06/25/2015 10:29 Prescription Detail 40 MILLIGRAMS ORAL DAILY Xarelto 20MG Oral Tablet [id number] 20 MILLIGRAMS QD ORAL 06/25/2015 10:29 Prescription Detail 20 MILLIGRAMS ORAL QD ZyrTEC 10MG Oral Tablet [id number] 10 MILLIGRAMS NEEDED ORAL 06/25/2015 10:29 Prescription Detail 10 MILLIGRAMS ORAL NEEDED Medications Administered During Visit Unknown or Not Available. Encounters Encounter Diagnosis Diagnosis Code Start Date Iron deficiency anemia, unspecified D509 03/03/2016 Social History Smoking Status Code Start Date End Date Former smoker [id number] Patient Decision Aids Unknown or Not Available. Discharge Instructions You were admitted to [facility] on 03/03/2016 13:31 with a principal diagnosis of Iron deficiency anemia, unspecified You had the following tests done: CBC W / DIFF COMP METABOLIC DIGOXIN LIPID PANEL UA AUTO W/ MICRO You were discharged from [facility] on 03/03/2016 13:31 Should you have any questions prior to [...]
--- OUTSIDE RECORDS SUMMARY | 2017-02-03 17:41 | XMS REPORT | CCD ---
Author Author SCOTT BOYKIN Organization Unknown Address [address] [place], [place] [id number] Phone 0 Care Team Providers Care Hospital Administrator Name Role Phone JAKE MCCRAY Attending Physician 0 JIE TELLEZ Physician [phone] Vital Signs Unknown or Not Available. Allergies [...] Docusate Sodium and Senna 50MG-8.6MG Oral Tablet [id number] 1 EACH AT BEDTIME ORAL 12/31/2015 12:54 Prescription Detail 1 EACH ORAL AT BEDTIME Ferrous Sulfate 325MG Oral Tablet [id number] 325 MILLIGRAMS TWICE A DAY ORAL 12/31/2015 12:54 Prescription Detail 325 MILLIGRAMS ORAL TWICE A DAY Klor-Con M20 20MEQ Oral Tablet, Extended Release [id number] 40 MEQ TWICE A DAY ORAL 12/31/2015 12:54 Prescription Detail 40 MEQ ORAL TWICE A DAY Norvasc 10MG Oral Tablet [id number] 10 MILLIGRAMS DAILY ORAL 12/31/2015 12:54 Prescription Detail 10 MILLIGRAMS ORAL DAILY predniSONE 10MG Oral Tablet [id number] 10 MILLIGRAMS DAILY ORAL 12/31/2015 12:54 Prescription Detail 10 MILLIGRAMS ORAL DAILY Fluticasone Prop 0.05MG/Actuation Nasal [place] 034654 2 [place] AT BEDTIME NASAL 12/04/2015 15:10 Prescription Detail 2 [place] NASAL AT BEDTIME PreserVision Areds Oral Capsule, Liquid Filled [id number] 1 EACH DAILY ORAL 12/04/2015 15:10 Prescription Detail 1 EACH ORAL DAILY Lasix 40MG Oral Tablet [id number] 40 MILLIGRAMS DAILY ORAL 10/14/2015 12:24 Prescription Detail 40 MILLIGRAMS ORAL DAILY Colace 100MG Oral Capsule, Liquid Filled [id number] 100 MILLIGRAMS bid BY MOUTH 06/25/2015 10:30 Prescription Detail TAKE 100 MILLIGRAMS BY MOUTH bid Aspirin 81MG Oral Tablet [id number] 81 MILLIGRAMS DAILY ORAL 06/25/2015 10:29 Prescription Detail 81 MILLIGRAMS ORAL DAILY Digoxin 0.125MG Oral Tablet [id number] 0.125 MILLIGRAMS DAILY ORAL 06/25/2015 10:29 Prescription Detail 0.125 MILLIGRAMS ORAL DAILY Nature's Blend Vitamin D3 5000IU Oral Tablet 166415 9255 INTERNATIONAL UNITS DAILY ORAL 2014 10:29 Prescription Detail 5000 INTERNATIONAL UNITS ORAL DAILY Pantoprazole Sodium 40MG Oral Tablet, Enteric Coated [id number] 40 MILLIGRAMS DAILY ORAL 06/25/2015 10:29 Prescription Detail 40 MILLIGRAMS ORAL DAILY Pravastatin 40MG Oral Tablet [id number] 40 MILLIGRAMS DAILY ORAL 06/25/2015 10:29 Prescription Detail 40 MILLIGRAMS ORAL DAILY Xarelto 20MG Oral Tablet [id number] 20 MILLIGRAMS QD ORAL 06/25/2015 10:29 Prescription Detail 20 MILLIGRAMS ORAL QD ZyrTEC 10MG Oral Tablet [id number] 10 MILLIGRAMS NEEDED ORAL 06/25/2015 10:29 Prescription Detail 10 MILLIGRAMS ORAL NEEDED Medications Administered During Visit Unknown or Not Available. Encounters Encounter Diagnosis Diagnosis Code Start Date Sepsis, unspecified organism A419 2015 Social History Smoking Status Code Start Date End Date Former smoker [id number] Patient Decision Aids Unknown or Not Available. Discharge Instructions You were admitted to [facility] on 01/18/2016 11:23 with a principal diagnosis of Sepsis, unspecified organism You had the following tests done: CULTURE BLOOD CULTURE BLOOD You were discharged from [facility] on 01/18/2016 11:23 Should you have [...]
--- OUTSIDE RECORDS SUMMARY | 2017-02-03 17:41 | XMS REPORT | CCD ---
Author Author SCOTT BOYKIN Organization Unknown Address [address] [place], [place] [id number] Phone 0 Care Team Providers Care Statistical Assistant Name Role Phone JAKE MCCRAY Attending Physician 0 C., N Nurse Assisstant 0 H., A Nurse Assisstant 0 T., A Nurse Assisstant 0 M., R Nurse Assisstant 0 Vital Signs Vital Sign Value Unit Date/Time Recent/Initial? BP Systolic 144 mmHg 12/02/2015 11:28 Initial VS BP Diastolic 79 mmHg 12/02/2015 11:28 Initial VS Respiratory Rate 20 bpm 12/02/2015 20:02 Initial VS Heart Rate 67 bpm 20:02 Initial VS O2 % BldC Oximetry 95 % 12/02/2015 20:02 Initial VS Body Temperature 98.3 degrees 12/02/2015 20:02 Initial VS Weight Measured 194 lbs 12/04/2015 06:05 Initial VS BP Systolic 158 mmHg 12/04/2015 15:08 Most Recent VS BP Diastolic 84 mmHg 12/04/2015 15:08 Most Recent VS Respiratory Rate 20 bpm 12/04/2015 15:08 Most Recent VS Heart Rate 69 bpm 15:08 Most Recent VS O2 % BldC Oximetry 91 % 12/04/2015 15:08 Most Recent VS Body Temperature 97.5 degrees 12/04/2015 15:08 Most Recent VS Allergies Allergy Code Allergy Type Reaction Status No Known Drug Allergies 0 No known drug allergies Active Procedures Unknown or Not Available. History of Immunizations Unknown or Not Available. Problems Unknown or Not Available. Results Unknown or Not Available. Active Medications Medication Code Dose Units Frequency Route Modification Start Date/Time Fluticasone Prop 0.05MG/Actuation Nasal [place] 171739 2 [place] AT BEDTIME NASAL 12/04/2015 15:10 Prescription Detail 2 [place] NASAL AT BEDTIME PreserVision Areds Oral Capsule, Liquid Filled [id number] 1 EACH DAILY ORAL 12/04/2015 15:10 Prescription Detail 1 EACH ORAL DAILY Lasix 40MG Oral Tablet [id number] 40 MILLIGRAMS DAILY ORAL 10/14/2015 12:24 Prescription Detail 40 MILLIGRAMS ORAL DAILY Colace 100MG Oral Capsule, Liquid Filled [id number] 100 MILLIGRAMS bid BY MOUTH 06/25/2015 10:30 Prescription Detail TAKE 100 MILLIGRAMS BY MOUTH bid Aspirin 81MG Oral Tablet [id number] 81 MILLIGRAMS DAILY ORAL 06/25/2015 10:29 Prescription Detail 81 MILLIGRAMS ORAL DAILY Digoxin 0.125MG Oral Tablet [id number] 0.125 MILLIGRAMS DAILY ORAL 06/25/2015 10:29 Prescription Detail 0.125 MILLIGRAMS ORAL DAILY Nature's Blend Vitamin D3 5000IU Oral Tablet [id number] 8712 INTERNATIONAL UNITS DAILY ORAL 2014 10:29 Prescription Detail 5000 INTERNATIONAL UNITS ORAL DAILY Pantoprazole Sodium 40MG Oral Tablet, Enteric Coated [id number] 40 MILLIGRAMS DAILY ORAL 06/25/2015 10:29 Prescription Detail 40 MILLIGRAMS ORAL DAILY Pravastatin 40MG Oral Tablet [id number] 40 MILLIGRAMS DAILY ORAL 06/25/2015 10:29 Prescription Detail 40 MILLIGRAMS ORAL DAILY Xarelto 20MG Oral Tablet [id number] 20 MILLIGRAMS QD ORAL 06/25/2015 10:29 Prescription Detail 20 MILLIGRAMS ORAL QD ZyrTEC 10MG Oral Tablet [id number] 10 MILLIGRAMS NEEDED ORAL 06/25/2015 10:29 Prescription Detail 10 MILLIGRAMS ORAL NEEDED Medications Administered During Visit Medication Dose Units Frequency Route Date/Time of Last Dose PANTOPRAZOLE (PROTONIX) TAB : 40MG 40 MG QD PO 12/04/2015 07: 44 DIGOXIN (LANOXIN) TAB :0.125MG 0.125 MG QD PO 12/04/2015 07:44 VITAMIN D CAP: 5000 UNITS 5000 UNITS DAILY PO 12/04/2015 07:44 PREDNISONE 20MG TAB 20 MG QD PO 12/04/2015 07:44 METOPROLOL (TOPROL) TAB : 50MG 50 MG BID PO 12/04/2015 07:44 DOCUSATE (COLACE) CAP : 100MG 100 MG DAILY PO 12/04/2015 07:44 AMLODIPINE (NORVASC) TAB : 5MG 5 MG DAILY/HS PO 12/03/2015 20: 18 PRAVASTATIN (PRAVACHOL) TAB : 40MG 40 MG DAILY/HS PO 2015 20:18 ACETAMINOPHEN (TYLENOL) TAB : 325MG 650 MG PRN Q6H PO 2015 11:15 ASPIRIN EC TAB : 81 MG 81 MG QD ORAL 12/04/2015 07:44 XARELTO TAB: 20 MG 20 MG QD PO 12/04/2015 07:45 FLONASE (FLUTICASONE)NASAL SPRAY:50 MCG 2 SPRAY DAILY/HS TOPICAL 12/03/2015 20:50 OCUVITE TAB: 1 TAB QD PO 12/04/2015 07:44 FUROSEMIDE (LASIX)TAB:20 MG 40 MG QD PO 12/04/2015 07:44 SALINE FLUSH 10ML SYRINGE : IV 10 ML PRN IV PUSH 12/04/2015 13: 22 HALOPERIDOL (HALDOL) TAB : 5MG 5 MG DAILY/HS PO 12/03/2015 20: 18 AMPICILLIN 2 GRAM: IV 4 GRAMS TID IVPB 12/04/2015 13:22 NS 0.9% 250ML 250 ML TID IV 12/04/2015 13:23 K (KLOR CON) TAB : 20 MEQ 20 MEQ BID PO 12/04/2015 07:44 Encounters Encounter Diagnosis Diagnosis Code Start Date Bacteremia [id number] 12/02/2015 Social History Smoking Status Code Start Date End Date Former smoker [id number] Patient Decision Aids Patient Decision Aid Patient Portal Access Discharge Instructions You were admitted to [facility] on 12/02/2015 with a principal diagnosis of Bacteremia. You were discharged from [facility] on 12/04/2015. Should you have any questions prior to discharge, please contact a member of your healthcare team. If you have left the hospital and have any questions, please contact your primary care physician. Discharge To:[facility] Mode of Transportation:Ambulance. Accompanied By:EMS CREW Mental Status:Alert & oriented. Bowel/Bladder Status:No problem. Service Upon Discharge:PT IS BEING TRANSFERED TO [facility] TO HAVE HIS PACEMAKERREPLACED. Equipment Upon Discharge:PT USES A CANE Returned /Dispensed to Patient:PT OWN MEDS RETURNED Temperature: Afebrile. Pain Status:Denies pain at this time. Skin Integrity:PT HAS SCABS ON THE TOP OF HIS RIGHT HAND Pulmonary Status:Lungs clear bilaterally. Nurse' s Notes:PT HAS RAC PICC, LAST FLUSHED WITH 10CC NS AT 14:45. Chief Complaint and Reason For Visit Chief Complaint Date of Onset STREP SEPSIS/ENDOCARDITIS Function Status Unknown or Not Available. Plan of Care Unknown or Not Available. Referral/Transition of Care Unknown or Not Available.
--- OUTSIDE RECORDS SUMMARY | 2017-02-03 17:41 | XMS REPORT | CCD ---
Author Author SCOTT BOYKIN Organization Unknown Address [address], [place] [id number] Phone 0 Care Team Providers Care Multi Sensor Operator Name Role Phone YASEMINCINDY COONEY Attending Physician [phone] Vital Signs Unknown or Not Available. Allergies Allergy Code Allergy Type Reaction Status No Known Drug Allergies 0 No known drug allergies Active Procedures Unknown or Not Available. History of Immunizations Immunization Code Date Td (adult), adsorbed 09 11/20/2005 pneumococcal polysaccharide PPV23 33 Influenza, seasonal, injectable 141 09/02 Problems Unknown or Not Available. Results Unknown or Not Available. Active Medications Medication Code Dose Units Frequency Route Modification Start Date/Time Verapamil HCl 180MG Oral Tablet, Extended Release [id number] 1 TABLET TWICE A DAY BY MOUTH 07/08/2016 11: 19 Prescription Detail TAKE 1 TABLET BY MOUTH TWICE A DAY Multaq 400MG Oral Tablet [id number] 400 MILLIGRAMS TWICE A DAY ORAL 07/08/2016 10:35 Prescription Detail 400 MILLIGRAMS ORAL TWICE A DAY Nitrostat 0.4MG Sublingual Tablet 274147 0.4 MILLIGRAMS NEEDED SUBLINGUAL 07/08/2016 10:[address] 0.4 MILLIGRAMS SUBLINGUAL NEEDED predniSONE 5MG Oral Tablet 212267 5 MILLIGRAMS DAILY ORAL 07/08/2016 10:35 Prescription Detail 5 MILLIGRAMS ORAL DAILY Xarelto 20MG Oral Tablet [id number] 20 MILLIGRAMS DAILY ORAL 07/08/2016 10:35 Prescription Detail 20 MILLIGRAMS ORAL DAILY Aspir Low 81MG Oral Tablet, Enteric Coated [id number] 81 MILLIGRAMS DAILY ORAL 04/20/2016 10:56 Prescription Detail 81 MILLIGRAMS ORAL DAILY Klor-Con M20 20MEQ Oral Tablet, Extended Release [id number] 20 MEQ TWICE A DAY ORAL 04/20/2016 10:56 Prescription Detail 20 MEQ ORAL TWICE A DAY Vitamin D3 5000 IU Oral Tablet [id number] 5000 IU DAILY ORAL 04/20/2016 10:56 Prescription Detail 5000 IU ORAL DAILY Docusate Sodium and Senna 50MG-8.6MG Oral Tablet [id number] 1 EACH AT BEDTIME ORAL 12/31/2015 12:54 Prescription Detail 1 EACH ORAL AT BEDTIME Ferrous Sulfate 325MG Oral Tablet [id number] 325 MILLIGRAMS TWICE A DAY ORAL 12/31/2015 12:54 Prescription Detail 325 MILLIGRAMS ORAL TWICE A DAY Fluticasone Prop 0.05MG/Actuation Nasal Frederic 2108298 2 Frederic AT BEDTIME NASAL 12/04/2015 15:10 Prescription Detail 2 Frederic NASAL AT BEDTIME PreserVision Areds Oral Capsule, Liquid Filled [id number] 1 EACH DAILY ORAL 12/04/2015 15:10 Prescription Detail 1 EACH ORAL DAILY Lasix 40MG Oral Tablet [id number] 40 MILLIGRAMS DAILY ORAL 10/14/2015 12:24 Prescription Detail 40 MILLIGRAMS ORAL DAILY Digoxin 0.125MG Oral Tablet 497277 0.125 MILLIGRAMS DAILY ORAL 06/25/2015 10:29 Prescription Detail 0.125 MILLIGRAMS ORAL DAILY Pantoprazole Sodium 40MG Oral Tablet, Enteric Coated [id number] 40 MILLIGRAMS DAILY ORAL 06/25/2015 10:29 Prescription Detail 40 MILLIGRAMS ORAL DAILY Pravastatin 40MG Oral Tablet 154102 40 MILLIGRAMS DAILY ORAL 06/25/2015 10:29 Prescription Detail 40 MILLIGRAMS ORAL DAILY ZyrTEC 10MG Oral Tablet [id number] 10 MILLIGRAMS NEEDED ORAL 06/25/2015 10:29 Prescription Detail 10 MILLIGRAMS ORAL NEEDED Medications Administered During Visit Unknown or Not Available. Encounters Encounter Diagnosis Diagnosis Code Start Date Muscle weakness (generalized) M6281 07/14 Social History Smoking Status Code Start Date End Date Former smoker [id number] Patient Decision Aids Unknown or Not Available. Discharge Instructions You were admitted to [facility] on 2016 12:24 with a principal diagnosis of Muscle weakness (generalized) You were discharged from [facility] Should you have any questions prior to discharge, please contact a member of your healthcare team. If you have left the hospital and have any questions, please contact your primary care physician. Chief Complaint and Reason For Visit Chief Complaint Date of Onset PT Function Status Unknown or Not Available. Plan of Care Unknown or Not Available. Referral/Transition of Care Unknown or Not Available.
--- OUTSIDE RECORDS SUMMARY | 2017-02-03 17:41 | XMS REPORT | CCD ---
Author Author SCOTT BOYKIN Organization Unknown Address [address], [place] [id number] Phone 0 Care Team Providers Care Reconstructive Dentist Name Role Phone JAKE MCCRAY Attending Physician 0 Vital Signs Unknown or Not Available. Allergies Allergy Code Allergy Type Reaction Status No Known Drug Allergies 0 No known drug allergies Active Procedures Procedure Code Procedure Type Date CHEST [id number] 10/22/2015 History of Immunizations Unknown or Not Available. Problems Unknown or Not Available. Results C-REACTIVE PROTEIN - Collect Date/Time: 10/22/2015 11:30 Test Name Code Test Result Test Units Test Ref Range CRP 5 mg/L L=0 H=5 COMP METABOLIC - Collect Date/Time: 10/22/2015 11:30 Test Name Code Test Result Test Units Test Ref Range GLUCOSE 124 mg/dL L=70 H=110 BUN 31 mg/dL L=7 H=18 CREATININE 1.70 mg/ dL L=0.60 H=1.30 AGE 85 YEARS GFR 41.0 SODIUM 136 mmol/L L=136 H=145 POTASSIUM 4.5 mmol/ L L=3.5 H=5.1 CHLORIDE 100 mmol/L L=98 H=107 CO2 27 mmol/L L=21 H=32 CALCIUM 10.0 mg/dL L=8.5 H=10.1 AST 21 U/L L=15 H=37 ALT 22 U/L L=12 H=78 ALKALINE PHOS 83 U/ L L=46 H=116 TOTAL PROTEIN 8.6 g/ dL L=6.4 H=8.2 ALBUMIN 3.8 g/dL L=3.4 H=5.0 TOTAL BILI 0.40 mg/ dL L=0.00 H=1.00 LACTIC ACID - Collect Date/Time: 10/22/2015 11:30 Test Name Code Test Result Test Units Test Ref Range LACTIC ACID 2.6 mmol /L L=0.4 H=2.0 CBC W/ DIFF - Collect Date/Time: 10/22/2015 11:30 Test Name Code Test Result Test Units Test Ref Range WBC 11.5 x10^3 L=4.8 H=10.8 RBC 4.19 x10^6 L=4.70 H=6.10 HEMOGLOBIN 12.4 g/ dL L=14.0 H=18.0 HEMATOCRIT 38.8 % L=42.0 H=52.0 MCV 93 fL L=80 H=100 MCH 29.7 pg L=27.0 H=33.0 MCHC 32.0 g/dL L=33.0 H=37.0 RDW 14.5 % L=11.5 H=14.5 PLATELETS 197 x10^3 L=150 H=450 MPV 10.4 fL L=7.8 H=11.0 NEUTROPHILS 76.7 % L=40.0 H=80.0 LYMPHOCYTES 14.8 % L=20.0 H=45.0 MONOCYTES 5.7 % L=0.0 H=10.0 EOSINOPHILS 2.8 % L=0.0 H=5.0 BASOPHILS 0.0 % L=0.0 H=2.0 REFLEX MAN DIFF NO N /A SED RATE AUTO - Collect Date/Time: 10/22/2015 11:30 Test Name Code Test Result Test Units Test Ref Range SED RATE 55 mm/HR L=0 H=10 UA AUTO W/ MICRO - Collect Date/Time: 10/22/2015 11:52 Test Name Code Test Result Test Units Test Ref Range COLOR Yellow N/A NORMAL: Yellow APPEARANCE Clear N/ A NORMAL: Clear GLUCOSE Negative N/ A NORMAL: Negative BILIRUBIN Negative N /A NORMAL: Negative KETONE Negative N/A NORMAL: Negative SPEC GRAVITY 1.010 N /A NORMAL: 1.005-1.030 BLOOD Negative N/A NORMAL: Negative PROTEIN Negative N/ A NORMAL: Negative PH 5.0 N/A NORMAL: 5.0-8.0 UROBILINOGEN 0.2 N/ A NORMAL: Negative NITRITE Negative N/ A NORMAL: Negative LEUKOCYTES Negative N/A NORMAL: Negative MICRO RBC None Seen N/A NORMAL: 0-2 MICRO WBC 0-2 N/A NORMAL: 0-2 BACTERIA Trace N/A NORMAL: None-Trace EPI CELLS 0-5 N/A NORMAL: 0-15 MUCUS Small N/A NORMAL: None-Small AMORPHOUS None Seen N/A NORMAL: None Seen YEAST None Seen N/A NORMAL: None Seen CRYSTALS None Seen N /A NORMAL: None Seen CAST Hyaline C N/A NORMAL: None Seen URINE CULTURE? NO N/ A CULTURE BLOOD - Collect Date/Time: 10/22/2015 11:42 Test Name Code Test Result Test Units Test Ref Range SOURCE: RIGHT AC N/ A Blood Culture, Routine 600-7 Final report N/A CULTURE BLOOD - Collect Date/Time: 10/22/2015 11:30 Test Name Code Test Result Test Units Test Ref Range SOURCE: LEFT AC N/A Blood Culture, Routine 600-7 Final report N/A Active Medications Medication Code Dose Units Frequency Route Modification Start Date/Time Klor-Con M20 20MEQ Oral Tablet, Extended Release [id number] 40 MILLIEQUIVALENT TWICE A DAY BY MOUTH 2014 12:24 Prescription Detail TAKE 40 MILLIEQUIVALENT BY MOUTH TWICE A DAY Lasix 40MG Oral Tablet [id number] 40 MILLIGRAMS DAILY ORAL 10/14/2015 12:24 Prescription Detail 40 MILLIGRAMS ORAL DAILY Norvasc 5MG Oral Tablet [id number] 5 MILLIGRAMS AT BEDTIME ORAL 10/14/2015 12:24 Prescription Detail 5 MILLIGRAMS ORAL AT BEDTIME predniSONE 10MG Oral Tablet [id number] 10 MILLIGRAMS DAILY ORAL 10/14/2015 12:24 Prescription Detail 10 MILLIGRAMS ORAL DAILY Colace 100MG Oral Capsule, Liquid Filled [id number] 100 MILLIGRAMS bid BY MOUTH 06/25/2015 10:30 Prescription Detail TAKE 100 MILLIGRAMS BY MOUTH bid Lopressor 50MG Oral Tablet [id number] 50 MILLIGRAMS TWICE A DAY BY MOUTH 06/25/2015 10:30 Prescription Detail TAKE 50 MILLIGRAMS BY MOUTH TWICE A DAY Tums Regular Strength 500MG Oral Tablet, Chewable [id number] 7126 MILLIGRAMS PRN QID BY MOUTH 06/25/2015 10:30 Prescription Detail TAKE 1000 MILLIGRAMS BY MOUTH PRN QID Aspirin 81MG Oral Tablet [id number] 81 MILLIGRAMS DAILY ORAL 06/25/2015 10:29 Prescription Detail 81 MILLIGRAMS ORAL DAILY Digoxin 0.125MG Oral Tablet [id number] 0.125 MILLIGRAMS DAILY ORAL 06/25/2015 10:29 Prescription Detail 0.125 MILLIGRAMS ORAL DAILY Mapap 325MG Oral Tablet [id number] 325 MILLIGRAMS PRN Q6H BY MOUTH 06/25/2015 10:29 Prescription Detail TAKE 325 MILLIGRAMS BY MOUTH PRN Q6H Milk Of Magnesia 1200MG/15ML Oral Suspension [id number] 1 EACH NEEDED ORAL 06/25/2015 10:29 Prescription Detail 1 EACH ORAL NEEDED Nature's Blend Vitamin D3 5000IU Oral Tablet [id number] 1556 INTERNATIONAL UNITS DAILY ORAL 2014 10:29 Prescription Detail 5000 INTERNATIONAL UNITS ORAL DAILY Pantoprazole Sodium 40MG Oral Tablet, Enteric Coated [id number] 40 MILLIGRAMS DAILY ORAL 06/25/2015 10:29 Prescription Detail 40 MILLIGRAMS ORAL DAILY Pravastatin 40MG Oral Tablet [id number] 40 MILLIGRAMS DAILY ORAL 06/25/2015 10:29 Prescription Detail 40 MILLIGRAMS ORAL DAILY Xarelto 20MG Oral Tablet [id number] 20 MILLIGRAMS QD ORAL 06/25/2015 10:29 Prescription Detail 20 MILLIGRAMS ORAL QD ZyrTEC 10MG Oral Tablet [id number] 10 MILLIGRAMS NEEDED ORAL 06/25/2015 10:29 Prescription Detail 10 MILLIGRAMS ORAL NEEDED Medications Administered During Visit Unknown or Not Available. Encounters Unknown or Not Available. Social History Smoking Status Code Start Date End Date Former smoker [id number] Patient Decision Aids Unknown or Not Available. Discharge Instructions You were admitted to [facility] on 10/22/2015. You had the following tests done: SOURCE: Blood Culture, Routine SOURCE : Blood Culture, Routine You were discharged from [facility] on 10/22/2015. Should you have any questions prior to discharge, please contact a member of your healthcare team. If you have left the hospital and have any questions, please contact your primary care physician. Chief Complaint and Reason For Visit Chief Complaint Date of Onset LAB XR CHEST Function Status Unknown or Not Available. Plan of Care Unknown or Not Available. Referral/Transition of Care Unknown or Not Available.
--- OUTSIDE RECORDS SUMMARY | 2017-02-03 17:41 | XMS REPORT | CCD ---
Author Author SCOTT BOYKIN Organization Unknown Address [address], [place] [id number] Phone 0 Care Team Providers Care Suture Polisher Name Role Phone TORSTEN OLIVARES Attending Physician 0 Vital Signs Unknown or Not Available. Allergies Allergy Code Allergy Type Reaction Status No Known Drug Allergies 0 No known drug allergies Active Procedures Unknown or Not Available. History of Immunizations Immunization Code Date Td (adult), adsorbed 09 11/20/2005 pneumococcal polysaccharide PPV23 33 Influenza, seasonal, injectable 141 09/02 Problems Unknown or Not Available. Results BASIC METABOLIC - Collect Date/Time: 12/06/2016 10:50 Test Name Code Test Result Test Units Test Ref Range GLUCOSE 86 mg/dL L=70 H=110 BUN 31 mg/dL L=7 H=18 CREATININE 1.44 mg/ dL L=0.60 H=1.30 AGE 86 YEARS GFR 46.6 L=60.0 H=120 SODIUM 142 mmol/L L=136 H=145 POTASSIUM 3.9 mmol/ L L=3.5 H=5.1 CHLORIDE 107 mmol/L L=98 H=107 CO2 27 mmol/L L=21 H=32 CALCIUM 8.5 mg/dL L=8.5 H=10.1 CBC W/ DIFF - Collect Date/Time: 12/06/2016 10:50 Test Name Code Test Result Test Units Test Ref Range WBC 7.7 x10^3 L=4.8 H=10.8 RBC 3.52 x10^6 L=4.70 H=6.10 HEMOGLOBIN 10.8 g/ dL L=14.0 H=18.0 HEMATOCRIT 32.2 % L=42.0 H=52.0 MCV 92 fL L=80 H=100 MCH 30.7 pg L=27.0 H=33.0 MCHC 33.5 g/dL L=33.0 H=37.0 RDW 18.4 % L=11.5 H=14.5 PLATELETS 152 x10^3 L=150 H=450 MPV 10.2 fL L=7.8 H=11.0 NEUTROPHILS 70.7 % L=40.0 H=80.0 LYMPHOCYTES 14.6 % L=20.0 H=45.0 MONOCYTES 8.6 % L=0.0 H=10.0 EOSINOPHILS 4.9 % L=0.0 H=5.0 BASOPHILS 1.2 % L=0.0 H=2.0 REFLEX MAN DIFF NO N /A Active Medications Medication Code Dose Units Frequency Route Modification Start Date/Time Carvedilol 25MG Oral Tablet [id number] 12.5 MILLIGRAMS TWICE A DAY ORAL 08/19/2016 16:19 Prescription Detail 12.5 MILLIGRAMS ORAL TWICE A DAY PreserVision Areds Oral Capsule, Liquid Filled [id number] 1 EACH TWICE A DAY ORAL 08/19/2016 16:19 Prescription Detail 1 EACH ORAL TWICE A DAY Vancomycin HCl 1GM Intravenous Powder for Solution [id number] 1 GRAM DAILY INTRAVENOUS 08/19/2016 16:19 Prescription Detail 1 GRAM INTRAVENOUS DAILY Verapamil HCl 240MG Oral Tablet, Extended Release [id number] 240 MILLIGRAMS DAILY ORAL 08/19/2016 16:19 Prescription Detail 240 MILLIGRAMS ORAL DAILY Xarelto 20MG Oral Tablet [id number] 20 MILLIGRAMS ORAL 08/19/2016 16:19 Prescription Detail 20 MILLIGRAMS ORAL Multaq 400MG Oral Tablet [id number] 400 MILLIGRAMS TWICE A DAY ORAL 07/08/2016 10:35 Prescription Detail 400 MILLIGRAMS ORAL TWICE A DAY Nitrostat 0.4MG Sublingual Tablet [id number] 0.4 MILLIGRAMS NEEDED SUBLINGUAL 07/08/2016 10:[address] 0.4 MILLIGRAMS SUBLINGUAL NEEDED predniSONE 5MG Oral Tablet [id number] 5 MILLIGRAMS DAILY ORAL 07/08/2016 10:35 Prescription Detail 5 MILLIGRAMS ORAL DAILY Aspir Low 81MG Oral Tablet, Enteric Coated [id number] 81 MILLIGRAMS DAILY ORAL 04/20/2016 10:56 Prescription Detail 81 MILLIGRAMS ORAL DAILY Klor-Con M20 20MEQ Oral Tablet, Extended Release [id number] 20 MEQ TWICE A DAY ORAL 04/20/2016 10:56 Prescription Detail 20 MEQ ORAL TWICE A DAY Vitamin D3 5000 IU Oral Tablet [id number] 5000 IU DAILY ORAL 04/20/2016 10:56 Prescription Detail 5000 IU ORAL DAILY Ferrous Sulfate 325MG Oral Tablet [id number] 325 MILLIGRAMS TWICE A DAY ORAL 12/31/2015 12:54 Prescription Detail 325 MILLIGRAMS ORAL TWICE A DAY Pantoprazole Sodium 40MG Oral Tablet, Enteric Coated [id number] 40 MILLIGRAMS DAILY ORAL 06/25/2015 10:29 Prescription Detail 40 MILLIGRAMS ORAL DAILY Pravastatin 40MG Oral Tablet [id number] 40 MILLIGRAMS DAILY ORAL 06/25/2015 10:29 Prescription Detail 40 MILLIGRAMS ORAL DAILY ZyrTEC 10MG Oral Tablet [id number] 10 MILLIGRAMS NEEDED ORAL 06/25/2015 10:29 Prescription Detail 10 MILLIGRAMS ORAL NEEDED Medications Administered During Visit Unknown or Not Available. Encounters Unknown or Not Available. Social History Smoking Status Code Start Date End Date Former smoker [id number] Patient Decision Aids Unknown or Not Available. Discharge Instructions You were admitted to [facility] on 12/06/2016 10:30 You had the following tests done: BASIC METABOLIC CBC W/ DIFF You were discharged from [facility] on 12/06/2016 10:30 Should you have any questions prior to [...]
--- OUTSIDE RECORDS SUMMARY | 2017-02-03 17:41 | XMS REPORT | Continuity of Care Document ---
Author Author [facility] Organization [facility] Address Unknown Phone Unavailable Support Name Relationship Address Phone INES LUCIO MD Caregiver [address] [place] [address] [address] [place] [address] Unavailable INES LUCIO MD Caregiver [address] [place] [address] [address] [place] [address] Unavailable JUAN HAZEL "CINDY" Caregiver [address] [place] [address] Unavailable MAYLIN GALICIA Next Of Kin Unknown [phone] Insurance Providers Guarantor Dayanna Galicia Address [address] [place] [address] Email DENIED/NO TO PT [facility] Federal Policy Number [id number] Subscriber's Name Dayanna Galicia Relationship 18 Self Group Number [id number] Effective Date 15 Payer Medicare Policy Number [id number] Subscriber's Name Dayanna Galicia Relationship 18 Self Effective Date 96 Advance Directives Directive Response Recorded Date/Time Ordered Resuscitation Status Full Code 06/02/16 11:17am Resuscitation Documents on File No 06/03/16 7:13am DPOA for Healthcare Only Yes 06/03/16 7:13am Living Will Yes 06/03/16 7:13am Problems Active Problems Medical Problem Onset Date Status Abdominal pain Unknown Resolved Anemia Unknown Acute Anemia following surgery Unknown Acute Atrial fibrillation Unknown Chronic Bradycardia Unknown Resolved Chronic constipation Unknown Chronic Chronic kidney disease Unknown Chronic Colon cancer Unknown Colonic mass Unknown Coronary artery disease Unknown Chronic Dyslipidemia Unknown Chronic Encephalopathy Unknown Resolved GI bleed Unknown Acute Healthcare-associated pneumonia Unknown Acute Hypokalemia Unknown Resolved Hypotension Unknown Resolved Hypoxia Unknown Acute Ileus, postoperative Unknown Resolved Leukocytosis Unknown Resolved Osteoarthritis Unknown Chronic Severe sepsis Unknown Resolved Valvular disease Unknown Chronic Past Problems Medical Problem Onset Date History of pneumonia Unknown Medications Current Home Medications Medication Dose Units Route Directions Days Qty Instructions Start Date Acetaminophen (Tylenol) 325 Mg Tablet 1-2 Tab Oral as needed for Prn Orders 60 Tablet 04/20/16 Amoxicillin/Potassium Clav (Augmentin 875-125 Tablet) 1 Each Tablet 1 Tab Oral Twice A Day for Pneumonia 6 Tablet TAKE WITH MEALS 06/13/16 Aspirin (Aspir 81) 81 Mg Tablet. 1 Tab Oral Daily 30 Tablet 06/03 Cetirizine Hcl (Zyrtec) 10 Mg Tablet 1 Tab Oral Daily 04/20/16 Cholecalciferol (Vitamin D3) (Vitamin D3) 5,000 Unit Tablet 1 Tab Oral Daily 30 Tablet 04/20/16 Digoxin 125 Mcg Tablet 1 Tab Oral Daily 04/20/16 Docusate Sodium (Colace) 100 Mg Capsule 1 Cap Oral Twice A Day Dronedarone Hcl (Multaq) 400 Mg Tablet 1 Tab Oral Twice A Day 180 Tablet 04/20/16 Ferrous Sulfate (Iron Supplement) 325 Mg Tablet 1 Tab Oral Twice Daily With Meals BEST WITH FOOD. 05/09/16 Furosemide 40 Mg Tablet 40 Mg Oral Daily 04/14/09 Pantoprazole Sodium (Protonix) 40 Mg Tablet. 40 Mg Oral Daily 04/14/09 Potassium Chloride (Klor-Con M20) 20 Meq Tablet 20 Meq Oral Give With Breakfast 30 Tablet 06/13/16 Pravastatin Sodium 40 Mg Tablet 40 Mg Oral Bedtime Take 1 tablet, by mouth, daily at bedtime. 04/20/16 Prednisone 5 Mg Tablet 5 Mg Oral Give With Breakfast Take 1 tablet, by mouth, once a day with breakfast. 04/20/16 Rivaroxaban (Xarelto) 20 Mg Tablet 1 Tab Oral Daily 90 Days Sennosides/Docusate Sodium (Senna Plus Tablet) 1 Udtab Tablet 1 Udtab Oral As Needed 04/19/09 Verapamil Hcl (Verapamil Er) 180 Mg Cap24h.pel 180 Mg Oral Twice A Day 06/03/16 Vit C/E/Zn/Coppr/Lutein/Zeaxan (Preservision Areds 2 Softgel) 1 Each Capsule 1 Cap Oral Twice A Day 05/09/16 Past Home Medications Medication Directions Ordered Status Aspirin (Aspir 81) 81 Mg Tablet.dr, 81 Mg Oral Daily 04/14/09 Discontinued Diltiazem Hcl (Diltiazem Er) 240 Mg Tab.er.24h, 240 Mg Oral Daily 04/20/16 Discontinued Potassium Chloride (K-Dur) 20 Meq Tab.prt.sr, 20 Meq Oral Three Times A Day 04/14/09 Discontinued Rivaroxaban (Xarelto) 20 Mg Tablet, 1 Tab Oral Daily 04/20/16 Discontinued Social History Social History Problem Response Recorded Date/Time Onset Date Status Chewing Tobacco Status No 06/03/2016 7:15am Not Applicable Not Applicable Hx Substance Use No 06/03/2016 7:15am Not Applicable Not Applicable Hx Alcohol Use No 06/03/2016 7:15am Not Applicable Not Applicable Has the pt used tobacco in the last 12 months No 06/03/2016 7:15am Not Applicable Not Applicable Tobacco Usage none 06/03/2016 7:42pm Not Applicable Not Applicable Query Response Start Date Stop Date Smoking Status Former smoker Hospital Discharge Instructions Instructions: Care Instructions: Reason for Hospitalization: colon cancer I was in the hospital because (patient own words): REMOVE PART OF MY COLON Discharge Diet: As tolerated Discharge Activity: Restricted Follow Up Appointments: Further followup with Dr Kushal felix Pending Lab / Results: No Pending Lab Wound/Incision Care: May shower Notify Physician If: During the week: If you have questions about your care or wound, Call Dr. Lucio's office at [phone]. During the evening or on the weekends: If you have questions about your care or wound, Call [facility] at [phone] and have the crane hoist or lift operator page Dr. Lucio. Condition at time of discharge: Good Plan of Care Discharge Date 06/13/16 4:45pm Disposition 30 STILL A PATIENT Instructions/Education Provided Blood Transfusion DI for Blood Transfusion DI for Colectomy Prescriptions See Medication Section Care Plan and Goals See Discharge Instructions Section Functional Status Query Response Date Recorded Mobility Status Ambulatory w/assist June 13, 2016 4:15pm Assistive Devices Front Wheeled Walker June 13, 2016 4:15pm Activity Limitations Weakness June 13, 2016 4:15pm Feeding Ability Independent June 13, 2016 4:15pm Toileting Ability Assist June 13, 2016 4:15pm Grooming Ability Assist June 13, 2016 4:15pm Dressing Ability Assist June 13, 2016 4:15pm Driving Ability Dependent June 13, 2016 4:15pm Housework Ability Dependent June 13, 2016 4:15pm Meal Preparation Ability Dependent June 13, 2016 4:15pm Stair Climbing Ability Assist June 13, 2016 4:15pm Ability to complete ADL's impeded by Impaired Mobility June 13, 2016 4:15pm Cognitive/Perceptual Impairments Impaired vision Impaired hearing June 13, 2016 4:15pm Visual Assistive Devices Glasses With patient June 12, 2016 3:16pm Hearing Assistive Devices Left hearing aid Right hearing aid With patient June 12, 2016 3:16pm Preferred Method of Learning Reading Listening June 12, 2016 3:16pm Allergies, Adverse Reactions, Alerts No known allergies. Immunizations Query Response on File Recorded Date/Time Hx Influenza Vaccination Y 06/03/16 7:15am Hx Pneumococcal Vaccination Y 06/03/16 7:15am Hx Influenza Vaccination Y 06/03/16 7:15am Influenza Vaccine Hx 06/04/16 12:22pm Vital Signs Acute Vital Signs Vital Response Date/Time Temperature (Fahrenheit) 96.7 deg F (96.8 - 99.1) 06/13/2016 4:00pm Temperature (Calculated Celsius) 35.87600 degrees C (36.0 - 37.3) 06/13/2016 4:00pm Temperature Source Axillary 06/03/2016 3:03pm Pulse Rate (adult) 80 bpm (60 - 100) 06/13/2016 4:00pm Respiratory Rate 16 breaths/min (10 - 20) 06/13/2016 4:00pm O2 Sat by Pulse Oximetry 94 % (90 - 100) 06/13/2016 4:00pm Oxygen Delivery Method Room Air 06/12/2016 6:25pm Oxygen Delivery Method Room Air 06/13/2016 4:00pm Oxygen Flow Rate 1.00 L/min 06/12/2016 12:05am Blood Pressure 115/66 mm Hg 06/13/2016 4:00pm Blood Pressure Source Automatic Cuff 06/13/2016 4:00pm Height (Feet) 6 feet 06/13/2016 9:07am Height (Inches) 0.00 inches 06/13/2016 9:07am Weight (Kilograms) 89.000 kg 06/13/2016 8:00am Body Mass Index (BMI) 26.1 06/03/2016 7:08am Results Laboratory Results Test Name Result Units Flags Reference Collection Date/Time Result Date/ Time Comments Carcinoembryonic Antigen 4.43 UG/L H 0-3.0 04/23/2016 4:31am 04/24/2016 12:43pm Glucometer 148 mg/dL H 75-110 04/21/2016 11:05/10/2016 6:28am White Blood Count 9.9 T/MM3 4.5-11.0 06/11/2016 4:06/11/2016 5: 21am Red Blood Count 3.38 M/MM3 L 4.50-5.90 06/11/2016 4:06/11/2016 5: 21am Hemoglobin 9.7 GM/DL L 13.5-17.5 06/11/2016 4:06/11/2016 5:21am Hematocrit 31.3 % L 41-53 06/11/2016 4:06/11/2016 5:21am Mean Corpuscular Volume 92.6 UM3 80-100 06/11/2016 4:06/11/2016 5: 21am Mean Corpuscular Hemoglobin 28.7 UUG 26-34 06/11/2016 4:2015 5:21am Mean Corpuscular Hemoglobin Concent 31.0 GM/DL 31-37 06/11/2016 4:06/11/2016 5:21am RDW Standard Deviation 47.8 FL 36.9-50.2 06/11/2016 4:06/11/2016 5 :21am Platelet Count 160 T/MM3 130-400 06/11/2016 4:06/11/2016 5:21am Mean Platelet Volume 11.8 UM3 9.4-12.4 06/11/2016 4:06/11/2016 5: 21am Neutrophils (%) (Auto) 68.1 % H 33-66 06/11/2016 4:06/11/2016 5: 21am Lymphocytes (%) (Auto) 14.1 % L 23-45 06/11/2016 4:06/11/2016 5: 21am Monocytes (%) (Auto) 8.3 % 0-9.0 06/11/2016 4:06/11/2016 5:21am Eosinophils (%) (Auto) 8.4 % H 0-4 06/11/2016 4:06/11/2016 5:21am Basophils (%) (Auto) 0.5 % 0-2 06/11/2016 4:06/11/2016 5:21am Immature Granulocyte % (Auto) 0.6 % H 0.0-0.5 06/11/2016 4:24am 2015 5:21am Absolute Neutrophils (auto) 6.8 T/MM3 1.8-7.7 06/11/2016 4:2015 5:21am Absolute Lymphocytes (auto) 1.4 T/MM3 1-4.8 06/11/2016 4:2015 5:21am Absolute Monocytes (auto) 0.8 T/MM3 0-0.8 06/11/2016 4:am 06/11/2016 5:21am Absolute Eosinophils (auto) 0.8 T/MM3 H 0-0.5 06/11/2016 4:2015 5:21am Absolute Basophils (auto) 0.1 T/MM3 0-0.2 06/11/2016 4:06/11/2016 5:21am Absolute Immature Granulocyte (auto 0.06 T/MM3 H 0.00-0.03 06/11/2016 4: 06/11/2016 5:21am Neutrophils % (Manual) 91.0 % H 33-66 06/06/2016 7:am 06/06/2016 8: 01am Band Neutrophils % 1.0 % 0-6 06/06/2016 7:am 06/06/2016 8:01am Lymphocytes % (Manual) 4.0 % L 23-45 06/06/2016 7:am 06/06/2016 8: 01am Monocytes % (Manual) 2.0 % 0-9.0 06/06/2016 7:06/06/2016 8:01am Eosinophils % (Manual) 2.0 % 0-4 06/06/2016 7:am 06/06/2016 8:01am Basophils % (Manual) 1.0 % 0-2 06/03/2016 7:06/03/2016 8:15am Band Neutrophils # 0.2 T/MM3 06/06/2016 7:06/06/2016 8:01am Absolute Neutrophils (Manual) 14.2 T/MM3 H 1.8-7.7 06/06/2016 7:am 8:01am Lymphocytes # (Manual) 0.6 T/MM3 L 1-4.8 06/06/2016 7:31am 06/06/2016 8: 01am Monocytes # (Manual) 0.3 T/MM3 0-0.8 06/06/2016 7:31am 06/06/2016 8: 01am Eosinophils # (Manual) 0.3 T/MM3 0-0.5 06/06/2016 7:31am 06/06/2016 8: 01am Basophils # (Manual) 0.2 T/MM3 0-0.2 06/03/2016 7:06am 06/03/2016 8: 15am Red Cell Morphology Comment ABNORMAL 06/06/2016 7:31am 06/06/2016 8 :01am Poikilocytosis 1+ 06/06/2016 7:31am 06/06/2016 8:01am Ovalocytes 1+ 06/05/2016 4:11pm 06/05/2016 4:54pm Icterus Index < 2 0-7 06/12/2016 6:am 06/12/2016 7:00am Chemistry Specimen Hemolysis < 15 0-25 06/12/2016 6:06/12/2016 7 :00am 0-25: Specimen Exhibited No Hemolysis. Turbidity < 20 0-20 06/12/2016 6:am 06/12/2016 7:00am Sodium Level 137 MEQ/L 134-144 06/12/2016 6:06/12/2016 7:00am Potassium Level 4.2 MEQ/L D 3.6-5 06/12/2016 6:06/12/2016 7:20am Chloride Level 100 MEQ/L 98-107 06/12/2016 6:06/12/2016 7:00am Carbon Dioxide Level 29 MEQ/L 22-30 06/12/2016 6:06/12/2016 7: 00am Anion Gap 8 MEQ/L 5-15 06/12/2016 6:06/12/2016 7:00am Blood Urea Nitrogen 19.0 MG/DL D 9-06/12/2016 6:06/12/2016 7: 20am Creatinine 1.2 MG/DL 0.8-1.5 06/12/2016 6:06/12/2016 7:00am BUN/Creatinine Ratio 16 RATIO 6-06/12/2016 6:06/12/2016 7:00am Glomerular Filtration Rate Calc 58 06/12/2016 6:06/12/2016 7: 00am Glucose Level 113 MG/DL H 75-110 06/12/2016 6:06/12/2016 7:00am Calculated Osmolality 267 MOSM/KG 261-280 06/12/2016 6:06/12/2016 7:00am Calcium Level 8.6 MG/DL 8.4-10.2 06/12/2016 6:06/12/2016 7:00am Phosphorus Level 4.0 MG/DL 2.5-4.5 06/11/2016 4:06/11/2016 5:40am Total Bilirubin 0.40 MG/DL 0.20-1.30 06/12/2016 6:06/12/2016 7: 00am Alkaline Phosphatase 45 U/L 38-126 06/12/2016 6:06/12/2016 7:00am Total Protein 5.8 G/DL L 6.3-8.2 06/12/2016 6:06/12/2016 7:00am Albumin 3.1 G/DL L 3.5-5.0 06/12/2016 6:06/12/2016 7:00am Globulin 2.7 G/DL 2.4-3.6 06/12/2016 6:06/12/2016 7:00am Albumin/Globulin Ratio 1.1 RATIO 1.1-2.2 06/12/2016 6:06/12/2016 7 :00am Aspartate Amino Transf (AST/SGOT) 23 U/L 17-59 06/12/2016 6:2015 7:00am Alanine Aminotransferase (ALT/SGPT) 29 U/L 21-72 06/12/2016 6: 7:00am Magnesium Level 1.8 MG/DL 1.6-2.3 06/11/2016 4:06/11/2016 5:24am Plasma Lactate 1.0 MMOL/L 0.6-2.2 06/06/2016 3:12pm 06/06/2016 3:30pm Procalcitonin 0.11 NG/ML 06/06/2016 3:12pm 06/06/2016 3:49pm PCT </= 0.5 ng/mL - sepsis not likely; PCT >0.5 and </=2 ng/mL - sepsis possible; PCT >2 ng/mL - sepsis likely; PCT >/=10 ng/mL - systemic inflammatory response - sepsis or septic shock highly indicated. Iron Level 41 UG/DL L 49-181 06/03/2016 7:06am 06/06/2016 1:41am Total Iron Binding Capacity 332 UG/DL 261-497 06/03/2016 7:06am 2015 1:51am Percent Iron Saturation 12 % L 13-59 06/03/2016 7:06am 06/06/2016 1: 51am Ferritin 32.4 NG/ML 18-464 06/03/2016 7:06am 06/06/2016 2:19am Digoxin Level 1.3 NG/ML 0.8-2.0 06/04/2016 5:41am 06/04/2016 6:02am MRSA Specimen Source NASAL 06/06/2016 2:25pm 06/06/2016 4:08pm Methicillin-Resist S.aureus DNA PCR NEGATIVE 06/06/2016 2:25pm 4:08pm Urine Collection Type CLEANCATCH-MIDSTREAM 06/03/2016 8:162015 8:34am Urine Color YELLOW YELLOW 06/03/2016 8:1606/03/2016 8:34am Urine Turbidity CLEAR CLEAR 06/03/2016 8:1606/03/2016 8:34am Urine Specific [place] >=1.030 H 1.015-1.025 06/03/2016 8:162015 8:34am Urine pH 6.0 5.0-8.0 06/03/2016 8:1606/03/2016 8:34am Urine Leukocyte Esterase NEGATIVE NEGATIVE 06/03/2016 8:162015 8:34am Urine Nitrite NEGATIVE NEGATIVE 06/03/2016 8:1606/03/2016 8:34am Urine Protein NEGATIVE NEGATIVE 06/03/2016 8:1606/03/2016 8:34am Urine Glucose (UA) NEGATIVE NEGATIVE 06/03/2016 8:1606/03/2016 8: 34am Urine Ketones NEGATIVE NEGATIVE 06/03/2016 8:16am 06/03/2016 8:34am Urine Urobilinogen 0.2 EU/DL NORMAL 06/03/2016 8:16am 06/03/2016 8: 34am Urine Bilirubin NEGATIVE NEGATIVE 06/03/2016 8:16am 06/03/2016 8: 34am Urine Blood NEGATIVE NEGATIVE 06/03/2016 8:16am 06/03/2016 8:34am Urinalysis Comment MICROSCOPIC NOT IND. 06/03/2016 8:16am 2015 8:34am Microbiology Results Procedure Source Organism/Result Collection Date/Time Result Date/Time Result Status Blood Culture Peripheral/Iv Start NO GROWTH AFTER 5 DAYS 06/06/2016 2:24pm 06/11/2016 2:44pm Final Name: DAYANNA GALICIA Unit #: [id number] : 1930 Sex: M Admit Date: 06/03/16 Loc / Svc: SRG Discharge Date: DIAGNOSTIC IMAGING REPORT Report #: [id number] [facility] ALEXA Roca Indication: ITS.REASON: abdominal distention Procedure: KUB: Encounter: Initial Comparison: None Technique: Two supine AP abdominal radiographs were obtained. Findings: Midline surgical skin braydon noted. Prominent gas-filled small bowel loops seen within the mid to right lower quadrant of the abdomen. Mild gaseous distention of the stomach. Mild colonic gas and stool. Left mid abdominal surgical chain braydon noted. No obvious intraperitoneal free air, although sensitivity is limited with supine radiography. Left upper quadrant calcifications which may represent calcified granulomas. Degenerative spondylosis of the visualized spine. Partially visualized postoperative changes of median sternotomy. Partially visualized cardiac pacer leads. No focal airspace disease seen within the lower lungs. 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 Calcified pelvic phleboliths. Impression: Prominent gas-filled loops of small bowel within the lower mid abdomen to right lower quadrant which given presence of left mid abdominal surgical chain braydon and midline surgical skin braydon, is suggestive of postoperative adynamic ileus. . Procedures Procedure Status Date Provider(s) COLONOSCOPY AND BIOPSY Completed 04/20/16 INES LUCIO MD COLONOSCOPY W/LESION REMOVAL Completed 04/20/16 INES LUCIO MD EGD DIAGNOSTIC BRUSH WASH Completed 04/20/16 INES LUCIO MD EXCISION OF SIGMOID COLON, ENDO, DIAGN Completed 04/22/16 INES LUCIO MD INSPECTION OF UPPER INTESTINAL TRACT, ENDO Completed 04/22/16 INES LUCIO MD EXCISION OF ASCENDING COLON, ENDO, DIAGN Completed 04/22/16 INES LUCIO MD EXCISION OF TRANSVERSE COLON, ENDO, DIAGN Completed 04/22/16 INES LUCIO MD SIGMOIDOSCOPY W/TUMR REMOVE Completed 05/10/16 INES LUCIO MD [id number]"INJECTION, HYDROCORTISONE SODIUM SUCCINATE, UP TO 100 Completed [id number]"INJECTION, MIDAZOLAM HYDROCHLORIDE, PER 1 MG" Completed 05/10/16 044192"INJECTION, MIDAZOLAM HYDROCHLORIDE, PER 1 MG" Completed 05/10/16 PROPOFOL INJ 500 MG/50ML Completed 05/10/16 [id number]"INFUSION, NORMAL SALINE SOLUTION , 1000 CC" Completed 05/10/16 Encounters Encounter Location Arrival/Admit Date Discharge/Depart Date Attending Provider Discharged Inpatient [facility] 06/03/16 6:46am 06/13/16 4:45pm INES LUCIO MD Departed Surgical Day Care [facility] 05/10/16 6:33am 05/10/16 11 :58am INES LUCIO MD Discharged Inpatient [facility] 04/20/16 2:05pm 04/23/16 1:05pm ALINA MYLES MD
--- OUTSIDE RECORDS SUMMARY | 2017-02-03 17:41 | XMS REPORT | CCD ---
Author Author SERGIO TELLEZ Organization Unknown Address [address] [place], [place] [address] Phone 0 Care Team Providers Care Property Man Name Role Phone JAKE MCCRAY Attending Physician 0 Vital Signs Unknown or Not Available. Allergies Allergy Code Allergy Type Reaction Status No Known Drug Allergies 0 No known drug allergies Active Procedures Unknown or Not Available. History of Immunizations Unknown or Not Available. Problems Unknown or Not Available. Results COMP METABOLIC - Collect Date/Time: 07/02/2015 14:35 Test Name Code Test Result Test Units Test Ref Range GLUCOSE 116 mg/dL L=70 H=110 BUN 17 mg/dL L=7 H=18 CREATININE 1.30 mg/ dL L=0.60 H=1.30 AGE 84 YEARS GFR 56.0 SODIUM 132 mmol/L L=136 H=145 POTASSIUM 4.4 mmol/ L L=3.5 H=5.1 CHLORIDE 95 mmol/L L=98 H=107 CO2 32 mmol/L L=21 H=32 CALCIUM 9.3 mg/dL L=8.5 H=10.1 AST 17 U/L L=15 H=37 ALT 24 U/L L=12 H=78 ALKALINE PHOS 87 U/ L L=46 H=116 TOTAL PROTEIN 7.6 g/ dL L=6.4 H=8.2 ALBUMIN 2.9 g/dL L=3.4 H=5.0 TOTAL BILI 0.40 mg/ dL L=0.00 H=1.00 CBC W/ DIFF - Collect Date/Time: 07/02/2015 14:35 Test Name Code Test Result Test Units Test Ref Range WBC 9.7 x10^3 L=4.8 H=10.8 RBC 3.47 x10^6 L=4.70 H=6.10 HEMOGLOBIN 10.3 g/ dL L=14.0 H=18.0 HEMATOCRIT 30.5 % L=42.0 H=52.0 MCV 88 fL L=80 H=100 MCH 29.7 pg L=27.0 H=33.0 MCHC 33.7 g/dL L=33.0 H=37.0 RDW 14.8 % L=11.5 H=14.5 PLATELETS 206 x10^3 L=150 H=450 MPV 9.3 fL L=7.8 H=11.0 NEUTROPHILS 68.5 % L=40.0 H=80.0 LYMPHOCYTES 17.9 % L=20.0 H=45.0 MONOCYTES 9.1 % L=0.0 H=10.0 EOSINOPHILS 4.5 % L=0.0 H=5.0 BASOPHILS 0.0 % L=0.0 H=2.0 REFLEX MAN DIFF NO N /A Active Medications Medication Code Dose Units Frequency Route Modification Start Date/Time Colace 100MG Oral Capsule, Liquid Filled [id number] 100 MILLIGRAMS bid BY MOUTH 06/25/2015 10:30 Prescription Detail TAKE 100 MILLIGRAMS BY MOUTH bid HYDROcodone bitartrate-acetaminophen 7.5MG-325MG Oral Tablet 284862 1 TABLET PRNQ4H BY MOUTH 06/25 10:30 Prescription Detail TAKE 1 TABLET BY MOUTH PRNQ4H Klor-Con M20 20MEQ Oral Tablet, Extended Release [id number] 20 MILLIEQUIVALENT TWICE A DAY BY MOUTH 2014 10:30 Prescription Detail TAKE 20 MILLIEQUIVALENT BY MOUTH TWICE A DAY Lasix 20MG Oral Tablet [id number] 80 MILLIGRAMS QD BY MOUTH 06/25/2015 10:30 Prescription Detail TAKE 80 MILLIGRAMS BY MOUTH QD Lopressor 50MG Oral Tablet [id number] 50 MILLIGRAMS TWICE A DAY BY MOUTH 06/25/2015 10:30 Prescription Detail TAKE 50 MILLIGRAMS BY MOUTH TWICE A DAY Norvasc 5MG Oral Tablet 992085 10 MILLIGRAMS DAILY/HS BY MOUTH 06/25/2015 10:30 Prescription Detail TAKE 10 MILLIGRAMS BY MOUTH DAILY/HS Tums Regular Strength 500MG Oral Tablet, Chewable [id number] 5264 MILLIGRAMS PRN QID BY MOUTH 06/25/2015 10:30 Prescription Detail TAKE 1000 MILLIGRAMS BY MOUTH PRN QID Albuterol Sulfate 0.5% Inhalation Solution 399452 3 MILLILITER PRN Q4H INHALATION 06/25/2015 10:29 Prescription Detail 3 MILLILITER INHALATION PRN Q4H Aspirin 81MG Oral Tablet [id number] 81 MILLIGRAMS DAILY ORAL 06/25/2015 10:29 Prescription Detail 81 MILLIGRAMS ORAL DAILY Digoxin 0.125MG Oral Tablet 104907 0.125 MILLIGRAMS DAILY ORAL 06/25/2015 10:29 Prescription Detail 0.125 MILLIGRAMS ORAL DAILY Heparin Lock Flush 100U/1ML Intravenous Solution [id number] 250 UNITS DAILY IV PUSH 06/25/2015 10:29 Prescription Detail 250 UNITS IV PUSH DAILY Mapap 325MG Oral Tablet [id number] 325 MILLIGRAMS PRN Q6H BY MOUTH 06/25/2015 10:29 Prescription Detail TAKE 325 MILLIGRAMS BY MOUTH PRN Q6H Milk Of Magnesia 1200MG/15ML Oral Suspension [id number] 1 EACH NEEDED ORAL 06/25/2015 10:29 Prescription Detail 1 EACH ORAL NEEDED Nature's Blend Vitamin D3 5000IU Oral Tablet 184377 9527 INTERNATIONAL UNITS DAILY ORAL 2014 10:29 Prescription Detail 5000 INTERNATIONAL UNITS ORAL DAILY Pantoprazole Sodium 40MG Oral Tablet, Enteric Coated 179312 40 MILLIGRAMS DAILY ORAL 06/25/2015 10:29 Prescription Detail 40 MILLIGRAMS ORAL DAILY Pravastatin 40MG Oral Tablet 800135 40 MILLIGRAMS DAILY ORAL 06/25/2015 10:29 Prescription Detail 40 MILLIGRAMS ORAL DAILY Sodium Chloride 0.9% Injection Solution 111059 10 MILLILITER NEEDED IV PUSH 06/25/2015 10:29 Prescription Detail 10 MILLILITER IV PUSH NEEDED Xarelto 20MG Oral Tablet [id number] 20 MILLIGRAMS QD ORAL 06/25/2015 10:29 Prescription Detail 20 MILLIGRAMS ORAL QD ZyrTEC 10MG Oral Tablet [id number] 10 MILLIGRAMS NEEDED ORAL 06/25/2015 10:29 Prescription Detail 10 MILLIGRAMS ORAL NEEDED Medications Administered During Visit Unknown or Not Available. Encounters Encounter Diagnosis Diagnosis Code Start Date ABDOMINAL PAIN, UNSPECIFIED SITE 01900 Social History Smoking Status Code Start Date End Date Former smoker [id number] Patient Decision Aids Unknown or Not Available. Discharge Instructions [facility] on 07/02/2015 with a principal diagnosis of ABDOMINAL PAIN, UNSPECIFIED SITE. You were discharged from [facility] on 07/02/2015. Should you have any questions prior to [...]
--- OUTSIDE RECORDS SUMMARY | 2017-02-03 17:41 | XMS REPORT | CCD ---
Author Author JOEL SHIRLEY Organization Unknown Address [address], [place] [address] Phone 0 Care Team Providers Care Composition Worker Name Role Phone Saurabh FAJARDO MD Attending Physician [phone] Vital Signs Unknown. Allergies Allergy Code Allergy Type Reaction Status No Known Drug Allergies 0 No known drug allergies Active Procedures Unknown. History of Immunizations Unknown. Problems Unknown. Results COMP METABOLIC Test Name Code Test Result Test Units Test Date/Time GLUCOSE 109.0000 mg/ dL 01/23/2014 09:50 BUN 32.0000 mg/dL 01/23/2014 09:50 CREATININE 1.5000 mg /dL 01/23/2014 09:50 AGE 83.0000 YE[age] 01/23/2014 09:50 GFR 47.6000 01/23/2014 09:50 SODIUM 139.0000 mmol /L 01/23/2014 09:50 POTASSIUM 4.0000 mmol/L 01/23/2014 09:50 CHLORIDE 102.0000 mmol/L 01/23/2014 09:50 CO2 31.0000 mmol/L 01/23/2014 09:50 CALCIUM 9.1000 mg/ dL 01/23/2014 09:50 AST 19.0000 U/L 01/23/2014 09:50 ALT 23.0000 U/L 01/23/2014 09:50 ALKALINE PHOS 122.0000 U/L 01/23/2014 09:50 TOTAL PROTEIN 7.8000 g/dL 01/23/2014 09:50 ALBUMIN 3.8000 g/dL 01/23/2014 09:50 TOTAL BILI 0.6000 mg /dL 01/23/2014 09:50 Medications Unknown. Medications Administered Unknown. Encounters Unknown. Social History Smoking Status Code Start Date End Date Former smoker [id number] Patient Decision Aids Unknown. Instructions [facility] on 01/23/2014. [facility] were [facility] on 01/23/2014. Should you have any questions prior to discharge, please contact a member of your healthcare team. If you have left the hospital and have any questions, please contact your primary care physician. Chief Complaint and Reason For Visit Chief Complaint Date of Onset LAB Function Status Unknown. Plan of Care Unknown. Referral/Transition of Care Unknown.
--- OUTSIDE RECORDS SUMMARY | 2017-02-03 17:42 | XMS REPORT | CCD ---
Author Author SCOTT BOYKIN Organization Unknown Address [address] [place], [place] [address] Phone 0 Care Team Providers Care Hazmat Cdl A Driver Name Role Phone TORSTEN OLIVARES Attending Physician [...] Aspir Low 81MG Oral Tablet, Enteric Coated [id number] 81 MILLIGRAMS DAILY ORAL 04/20/2016 10:56 Prescription Detail 81 MILLIGRAMS ORAL DAILY Klor-Con M20 20MEQ Oral Tablet, Extended Release [id number] 20 MEQ TWICE A DAY ORAL 04/20/2016 10:56 Prescription Detail 20 MEQ ORAL TWICE A DAY Vitamin D3 5000 IU Oral Tablet [id number] 5000 IU DAILY ORAL 04/20/2016 10:56 Prescription Detail 5000 IU ORAL DAILY Docusate Sodium and Senna 50MG-8.6MG Oral Tablet 204549 1 EACH AT BEDTIME ORAL 12/31/2015 12:54 Prescription Detail 1 EACH ORAL AT BEDTIME Ferrous Sulfate 325MG Oral Tablet [id number] 325 MILLIGRAMS TWICE A DAY ORAL 12/31/2015 12:54 Prescription Detail 325 MILLIGRAMS ORAL TWICE A DAY Norvasc 10MG Oral Tablet 457142 10 MILLIGRAMS DAILY ORAL 12/31/2015 12:54 Prescription Detail 10 MILLIGRAMS ORAL DAILY predniSONE 10MG Oral Tablet 478201 10 MILLIGRAMS DAILY ORAL 12/31/2015 12:54 Prescription Detail 10 MILLIGRAMS ORAL DAILY Fluticasone Prop 0.05MG/Actuation Nasal [place] 758244 2 [place] AT BEDTIME NASAL 12/04/2015 15:10 Prescription Detail 2 [place] NASAL AT BEDTIME PreserVision Areds Oral Capsule, Liquid Filled [id number] 1 EACH DAILY ORAL 12/04/2015 15:10 Prescription Detail 1 EACH ORAL DAILY Lasix 40MG Oral Tablet 40 MILLIGRAMS DAILY ORAL 10/14/2015 12:24 Prescription Detail 40 MILLIGRAMS ORAL DAILY Colace 100MG Oral Capsule, Liquid Filled [id number] 100 MILLIGRAMS bid BY MOUTH 06/25/2015 10:30 Prescription Detail TAKE 100 MILLIGRAMS BY MOUTH bid Digoxin 0.125MG Oral Tablet 824521 0.125 MILLIGRAMS DAILY ORAL 06/25/2015 10:29 Prescription Detail 0.125 MILLIGRAMS ORAL DAILY Nature's Blend Vitamin D3 5000IU Oral Tablet 643025 0698 INTERNATIONAL UNITS DAILY ORAL 2014 10:29 Prescription Detail 5000 INTERNATIONAL UNITS ORAL DAILY Pantoprazole Sodium 40MG Oral Tablet, Enteric Coated 606378 40 MILLIGRAMS DAILY ORAL 06/25/2015 10:29 Prescription Detail 40 MILLIGRAMS ORAL DAILY Pravastatin 40MG Oral Tablet [id number] 40 MILLIGRAMS DAILY ORAL 06/25/2015 10:29 Prescription Detail 40 MILLIGRAMS ORAL DAILY ZyrTEC 10MG Oral Tablet 2803448 10 MILLIGRAMS NEEDED ORAL 06/25/2015 10:29 Prescription Detail 10 MILLIGRAMS ORAL NEEDED Medications Administered During Visit Unknown or Not Available. Encounters Unknown or Not Available. Social History Smoking Status Code Start Date End Date Former smoker [id number] Patient Decision Aids Unknown or Not Available. Discharge Instructions You were admitted to [facility] on 05/13/2016 13:38 You were discharged from [facility] on 05/13/2016 13:38 Should you have any questions prior to [...]
--- OUTSIDE RECORDS SUMMARY | 2017-02-03 17:42 | XMS REPORT | Continuity of Care Document ---
Author Author [facility] Organization [facility] Address Unknown Phone Unavailable Support Name Relationship Address Phone INES LUCIO MD Caregiver [address] [place] [address] [place] [address] Unavailable JUAN HAZEL "CINDY" Caregiver [address] [place] [address] Unavailable MAYLIN GALICIA Next Of Kin Unknown [phone] Insurance Providers Guarantor Dayanna Galicia Address [address] [place] [address] Email DENIED/NO TO PT PORT Pay Porphyrio Federal Policy Number [id number] Subscriber's Name Dayanna Galicia Relationship 18 Self Group Number [id number] Effective Date 15 Payer Medicare Policy Number [id number] Subscriber's Name Dayanna Galicia Relationship 18 Self Effective Date 96 Advance Directives Directive Response Recorded Date/Time Ordered Resuscitation Status Full Code 05/09/16 2:01pm Resuscitation Documents on File No 05/10/16 7:07am DPOA for Healthcare Only Yes 05/10/16 7:07am Problems Active Problems Medical Problem Onset Date Status Anemia Unknown Acute Atrial fibrillation Unknown Chronic Chronic constipation Unknown Chronic Chronic kidney disease Unknown Chronic Colonic mass Unknown Coronary artery disease Unknown Chronic Dyslipidemia Unknown Chronic GI bleed Unknown Acute Osteoarthritis Unknown Chronic Valvular disease Unknown Chronic Past Problems Medical Problem Onset Date History of pneumonia Unknown Medications Current Home Medications Medication Dose Units Route Directions Days Qty Instructions Start Date Acetaminophen (Tylenol) 325 Mg Tablet 1-2 Tab Oral as needed for Prn Orders 60 Tablet 04/20/16 Cetirizine Hcl (Zyrtec) 10 Mg Tablet 1 Tab Oral Daily 04/20/16 Cholecalciferol (Vitamin D3) (Vitamin D3) 5,000 Unit Tablet 1 Tab Oral Daily 30 Tablet 04/20/16 Digoxin 125 Mcg Tablet 1 Tab Oral Daily 04/20/16 Diltiazem Hcl (Diltiazem Er) 240 Mg Tab.er.24h 240 Mg Oral Daily 04/20/16 Docusate Sodium (Colace) 100 Mg Capsule 1 Cap Oral Twice A Day Dronedarone Hcl (Multaq) 400 Mg Tablet 1 Tab Oral Twice A Day 180 Tablet 04/20/16 Ferrous Sulfate (Iron Supplement) 325 Mg Tablet 1 Tab Oral Twice Daily With Meals BEST WITH FOOD. 05/09/16 Furosemide 40 Mg Tablet 40 Mg Oral Daily 04/14/09 Pantoprazole Sodium (Protonix) 40 Mg Tablet.dr 40 Mg Oral Daily 04/14/09 Potassium Chloride (K-Dur) 20 Meq Tab.prt.sr 20 Meq Oral Three Times A Day 04/14/09 Pravastatin Sodium 40 Mg Tablet 40 Mg [...] Tablet 1 Udtab Oral As Needed 04/19/09 Vit C/E/Zn/Coppr/Lutein/Zeaxan (Preservision Areds 2 Softgel) 1 Each Capsule 1 Cap Oral Twice A Day 05/09/16 Past Home Medications Medication Directions Ordered Status Aspirin (Aspir 81) 81 Mg Tablet.dr, 81 Mg Oral Daily 04/14/09 Discontinued Rivaroxaban (Xarelto) 20 Mg Tablet, 1 Tab Oral Daily 04/20/16 Discontinued Social History Social History Problem Response Recorded Date/Time Onset Date Status Chewing Tobacco Status No 05/10/2016 7:17am Not Applicable Not Applicable Hx Substance Use No 05/10/2016 7:17am Not Applicable Not Applicable Hx Alcohol Use No 05/10/2016 8:17am Not Applicable Not Applicable Has the pt used tobacco in the last 12 months No 05/10/2016 7:17am Not Applicable Not Applicable Tobacco Usage none 04/20/2016 4:35pm Not Applicable Not Applicable Query Response Start Date Stop Date Smoking Status Former smoker Hospital Discharge Instructions No hospital discharge instructions. Plan of Care Discharge Date 05/10/16 11:58am Prescriptions See Medication Section Functional Status Query Response Date Recorded Ability to complete ADL's impeded by No change May 10, 2016 7:07am Allergies, Adverse Reactions, Alerts No known allergies. Immunizations Query Response on File Recorded Date/Time Hx Influenza Vaccination Y 05/10/16 7:17am Hx Pneumococcal Vaccination Y 05/10/16 7:17am Hx Influenza Vaccination Y 05/10/16 7:17am Influenza Vaccine Hx 09/02/15 04/21/16 9:38am Vital Signs Acute Vital Signs Vital Response Date/Time Temperature (Fahrenheit) 97.4 deg F (96.8 - 99.1) 05/10/2016 11:00am Temperature (Calculated Celsius) 36.53526 degrees C (36.0 - 37.3) 05/10/2016 11:00am Temperature Source Temporal 05/10/2016 11:00am Pulse Rate (adult) 80 bpm (60 - 100) 05/10/2016 11:49am Respiratory Rate 12 breaths/min (10 - 20) 05/10/2016 11:49am O2 Sat by Pulse Oximetry 94 % (90 - 100) 05/10/2016 11:49am Oxygen Delivery Method Nasal Cannula 04/23/2016 2:27pm Oxygen Delivery Method Room Air 05/10/2016 11:49am Oxygen Flow Rate 1.00 L/min 05/10/2016 11:20am Blood Pressure 112/59 mm Hg 05/10/2016 11:49am Blood Pressure Source Automatic Cuff 05/10/2016 11:49am Height (Feet) 6 feet 05/10/2016 6:53am Height (Inches) 0.00 inches 05/10/2016 6:53am Weight (Kilograms) 85.100 kg 05/10/2016 6:53am Body Mass Index (BMI) 25.4 05/10/2016 6:53am Results Laboratory Results Test Name Result Units Flags Reference Collection Date/Time Result Date/ Time Comments White Blood Count 9.8 T/MM3 4.5-11.0 04/23/2016 4:31am 04/23/2016 5: 20am Red Blood Count 2.61 M/MM3 L 4.50-5.90 04/23/2016 4:31am 04/23/2016 5: 20am Hemoglobin 8.0 GM/DL L 13.5-17.5 04/23/2016 4:31am 04/23/2016 5:20am Hematocrit 25.1 % L 41-53 04/23/2016 4:04/23/2016 5:20am Mean Corpuscular Volume 96.2 UM3 80-100 04/23/2016 4:04/23/2016 5: 20am Mean Corpuscular Hemoglobin 30.7 UUG 26-34 04/23/2016 4:2015 5:20am Mean Corpuscular Hemoglobin Concent 31.9 GM/DL 31-37 04/23/2016 4:04/23/2016 5:20am RDW Standard Deviation 49.6 FL 36.9-50.2 04/23/2016 4:04/23/2016 5 :20am Platelet Count 179 T/MM3 130-400 04/23/2016 4:04/23/2016 5:20am Mean Platelet Volume 11.7 UM3 9.4-12.4 04/23/2016 4:04/23/2016 5: 20am Neutrophils (%) (Auto) 71.1 % H 33-66 04/23/2016 4:04/23/2016 5: 20am Lymphocytes (%) (Auto) 13.1 % L 23-45 04/23/2016 4:04/23/2016 5: 20am Monocytes (%) (Auto) 9.3 % H 0-9.0 04/23/2016 4:04/23/2016 5:20am Eosinophils (%) (Auto) 4.9 % H 0-4 04/23/2016 4:04/23/2016 5:20am Basophils (%) (Auto) 0.4 % 0-2 04/23/2016 4:04/23/2016 5:20am Immature Granulocyte % (Auto) 1.2 % H 0.0-0.5 04/23/2016 4:2015 5:20am Absolute Neutrophils (auto) 7.0 T/MM3 1.8-7.7 04/23/2016 4:2015 5:20am Absolute Lymphocytes (auto) 1.3 T/MM3 1-4.8 04/23/2016 4:2015 5:20am Absolute Monocytes (auto) 0.9 T/MM3 H 0-0.8 04/23/2016 4:312015 5:20am Absolute Eosinophils (auto) 0.5 T/MM3 0-0.5 04/23/2016 4:312015 5:20am Absolute Basophils (auto) 0.0 T/MM3 0-0.2 04/23/2016 4:04/23/2016 5:20am Absolute Immature Granulocyte (auto 0.12 T/MM3 H 0.00-0.03 04/23/2016 4: 3104/23/2016 5:20am Icterus Index < 2 0-7 04/23/2016 4:04/23/2016 5:21am Chemistry Specimen Hemolysis 26 H 0-25 04/23/2016 4:04/23/2016 5: 21am 26-70: Specimen Exhibited Slight Hemolysis - can falsely elevate K (Potassium) and Urine Protein. Turbidity < 20 0-20 04/23/2016 4:04/23/2016 5:21am Sodium Level 139 MEQ/L 134-144 04/23/2016 4:04/23/2016 5:21am Potassium Level 3.9 MEQ/L 3.6-5 04/23/2016 4:04/23/2016 5:21am Chloride Level 104 MEQ/L D 98-107 04/23/2016 4:04/23/2016 5:23am Carbon Dioxide Level 27 MEQ/L 22-30 04/23/2016 4:04/23/2016 5: 21am Anion Gap 8 MEQ/L 5-15 04/23/2016 4:04/23/2016 5:21am Blood Urea Nitrogen 16.0 MG/DL 9-04/23/2016 4:3104/23/2016 5: 21am Creatinine 1.1 MG/DL 0.8-1.5 04/23/2016 4:3104/23/2016 5:21am BUN/Creatinine Ratio 15 RATIO 6-04/23/2016 4:04/23/2016 5:21am Glomerular Filtration Rate Calc 64 04/23/2016 4:3104/23/2016 5: 21am Glucose Level 128 MG/DL H 75-110 04/23/2016 4:3104/23/2016 5:21am Calculated Osmolality 271 MOSM/KG 261-280 04/23/2016 4:31am 04/23/2016 5:21am Calcium Level 8.7 MG/DL 8.4-10.2 04/23/2016 4:31am 04/23/2016 5:21am Total Bilirubin 0.70 MG/DL 0.20-1.30 04/21/2016 4:40am 04/21/2016 5: 40am Alkaline Phosphatase 60 U/L 38-126 04/21/2016 4:40am 04/21/2016 5:40am Total Protein 6.3 G/DL 6.3-8.2 04/21/2016 4:40am 04/21/2016 5:40am Albumin 3.4 G/DL L 3.5-5.0 04/21/2016 4:40am 04/21/2016 5:40am Globulin 2.9 G/DL 2.4-3.6 04/21/2016 4:40am 04/21/2016 5:40am Albumin/Globulin Ratio 1.2 RATIO 1.1-2.2 04/21/2016 4:40am 04/21/2016 5 :40am Aspartate Amino Transf (AST/SGOT) 20 U/L 17-59 04/21/2016 4:40am 2015 5:40am Alanine Aminotransferase (ALT/SGPT) 19 U/L L 21-72 04/21/2016 4:40am 12/2015 5:40am Magnesium Level 2.1 MG/DL 1.6-2.3 04/22/2016 5:12am 04/22/2016 8:17am Ferritin 21.8 NG/ML 18-464 04/21/2016 4:40am 04/22/2016 4:33am Digoxin Level 1.4 NG/ML 0.8-2.0 04/20/2016 4:36pm 04/20/2016 5:08pm Carcinoembryonic Antigen 4.43 UG/L H 0-3.0 04/23/2016 4:31am 04/24/2016 12:43pm Glucometer 148 mg/dL H 75-110 04/21/2016 11:09am 05/10/2016 6:28am Procedures Procedure Status Date Provider(s) COLONOSCOPY AND [...] ENDO, DIAGN Completed 04/22/16 INES LUCIO MD Colonoscopy Completed 05/10/16 INES LUCIO MD Encounters Encounter Location Arrival/Admit Date Discharge/Depart Date Attending Provider Departed [facility] 05/10/16 6:33am 05/10/16 11 :58am INES LUCIO MD Discharged Inpatient [facility] 04/20/16 2:05pm 04/23/16 1:05pm ALINA MYLES MD
--- OUTSIDE RECORDS SUMMARY | 2017-02-03 17:42 | XMS REPORT | Continuity of Care Document ---
Author Author [facility] Organization [facility] Address Unknown Phone Unavailable Allergies Active Description Code Type Severity Reaction Onset Reported/Identified Relationship to Patient Clinical Status Yes No Known Medication Allergies NKMA N/A N/A 10/06/2015 Medications Problems Date Dx Coded Attending Type Code Diagnosis Diagnosed By 10/26/2015 Mandy Klein MD Admitting A41.81 Sepsis due to Enterococcus 10/26/2015 Mandy Klein MD Final E78.5 Hyperlipidemia, unspecified 10/26/2015 Mandy Klein MD Final G93.40 Encephalopathy, unspecified 10/26/2015 Mandy Klein MD Final 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 Visit Date/Time Discharge Status Pt. Type Provider Facility Loc./Unit Complaint [id number] 10/06/2015 14:59:00 2014 16:04:00 DIS Inpatient Mandy Klein MD [facility] [place] [facility] Sepsis [id number] 12/04/2015 17:16:00 ACT Inpatient Mandy Klein MD [facility] [place] [facility] SEPSIS
--- OUTSIDE RECORDS SUMMARY | 2017-02-03 17:42 | XMS REPORT | CCD ---
Author Author SCOTT BOYKIN Organization Unknown Address [address], [place] [address] Phone 0 Care Team Providers Care Mental Health Nurse Practitioner Name Role Phone CNIDY HAZEL Attending Physician 0 Vital Signs Unknown or Not Available. Allergies Allergy Code Allergy Type Reaction Status No Known Drug Allergies 0 No known drug allergies Active Procedures Unknown or Not Available. History of Immunizations Unknown or Not Available. Problems Unknown or Not Available. Results CBC W/ DIFF - Collect Date/Time: 09/02/2015 14:00 Test Name Code Test Result Test Units Test Ref Range WBC 9.5 x10^3 L=4.8 H=10.8 RBC 3.87 x10^6 L=4.70 H=6.10 HEMOGLOBIN 12.1 g/ dL L=14.0 H=18.0 HEMATOCRIT 36.2 % L=42.0 H=52.0 MCV 94 fL L=80 H=100 MCH 31.2 pg L=27.0 H=33.0 MCHC 33.4 g/dL L=33.0 H=37.0 RDW 16.5 % L=11.5 H=14.5 PLATELETS 173 x10^3 L=150 H=450 MPV 10.1 fL L=7.8 H=11.0 NEUTROPHILS 76.2 % L=40.0 H=80.0 LYMPHOCYTES 15.2 % L=20.0 H=45.0 MONOCYTES 6.4 % L=0.0 H=10.0 EOSINOPHILS 2.2 % L=0.0 H=5.0 BASOPHILS 0.0 % L=0.0 H=2.0 REFLEX MAN DIFF NO N /A Active Medications Medication Code Dose Units Frequency Route Modification Start Date/Time Colace 100MG Oral Capsule, Liquid Filled [id number] 100 MILLIGRAMS bid BY MOUTH 06/25/2015 10:30 Prescription Detail TAKE 100 MILLIGRAMS BY MOUTH bid HYDROcodone bitartrate-acetaminophen 7.5MG-325MG Oral Tablet 114075 1 TABLET PRNQ4H BY MOUTH 06/25 10:30 Prescription Detail TAKE 1 TABLET BY MOUTH PRNQ4H Klor-Con M20 20MEQ Oral Tablet, Extended Release 491748 20 MILLIEQUIVALENT TWICE A DAY BY MOUTH 2014 10:30 Prescription Detail TAKE 20 MILLIEQUIVALENT BY MOUTH TWICE A DAY Lasix 20MG Oral Tablet 675429 80 MILLIGRAMS QD BY MOUTH 06/25/2015 10:30 Prescription Detail TAKE 80 MILLIGRAMS BY MOUTH QD Lopressor 50MG Oral Tablet 087523 50 MILLIGRAMS TWICE A DAY BY MOUTH 06/25/2015 10:30 Prescription Detail TAKE 50 MILLIGRAMS BY MOUTH TWICE A DAY Norvasc 5MG Oral Tablet 149359 10 MILLIGRAMS DAILY/HS BY MOUTH 06/25/2015 10:30 Prescription Detail TAKE 10 MILLIGRAMS BY MOUTH DAILY/HS Tums Regular Strength 500MG Oral Tablet, Chewable 677242 5131 MILLIGRAMS PRN QID BY MOUTH 06/25/2015 10:30 Prescription Detail TAKE 1000 MILLIGRAMS BY MOUTH PRN QID Albuterol Sulfate 0.5% Inhalation Solution 182666 3 MILLILITER PRN Q4H INHALATION 06/25/2015 10:29 Prescription Detail 3 MILLILITER INHALATION PRN Q4H Aspirin 81MG Oral Tablet 871097 81 MILLIGRAMS DAILY ORAL 06/25/2015 10:29 Prescription Detail 81 MILLIGRAMS ORAL DAILY Digoxin 0.125MG Oral Tablet 573649 0.125 MILLIGRAMS DAILY ORAL 06/25/2015 10:29 Prescription Detail 0.125 MILLIGRAMS ORAL DAILY Heparin Lock Flush 100U/1ML Intravenous Solution 9501639 250 UNITS DAILY IV PUSH 06/25/2015 10:29 Prescription Detail 250 UNITS IV PUSH DAILY Mapap 325MG Oral Tablet 581704 325 MILLIGRAMS PRN Q6H BY MOUTH 06/25/2015 10:29 Prescription Detail TAKE 325 MILLIGRAMS BY MOUTH PRN Q6H Milk Of Magnesia 1200MG/15ML Oral Suspension 87651500758 1 EACH NEEDED ORAL 06/25/2015 10:29 Prescription Detail 1 EACH ORAL NEEDED Nature's Blend Vitamin D3 5000IU Oral Tablet 447366 7687 INTERNATIONAL UNITS DAILY ORAL 2014 10:29 Prescription Detail 5000 INTERNATIONAL UNITS ORAL DAILY Pantoprazole Sodium 40MG Oral Tablet, Enteric Coated 445399 40 MILLIGRAMS DAILY ORAL 06/25/2015 10:29 Prescription Detail 40 MILLIGRAMS ORAL DAILY Pravastatin 40MG Oral Tablet 923254 40 MILLIGRAMS DAILY ORAL 06/25/2015 10:29 Prescription Detail 40 MILLIGRAMS ORAL DAILY Sodium Chloride 0.9% Injection Solution 461489 10 MILLILITER NEEDED IV PUSH 06/25/2015 10:29 Prescription Detail 10 MILLILITER IV PUSH NEEDED Xarelto 20MG Oral Tablet 4944609 20 MILLIGRAMS QD ORAL 06/25/2015 10:29 Prescription Detail 20 MILLIGRAMS ORAL QD ZyrTEC 10MG Oral Tablet 3111598 10 MILLIGRAMS NEEDED ORAL 06/25/2015 10:29 Prescription Detail 10 MILLIGRAMS ORAL NEEDED Medications Administered During Visit Unknown or Not Available. Encounters Unknown or Not Available. Social History Smoking Status Code Start Date End Date Former smoker [id number] Patient Decision Aids Unknown or Not Available. Discharge Instructions You were admitted to [facility] on 09/02/2015. You were discharged from [facility] on 09/02/2015. Should you have any questions prior to [...]
--- OUTSIDE RECORDS SUMMARY | 2017-02-03 17:42 | XMS REPORT | Referral Summary ---
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 Diagnosis: Presence of permanent cardiac pacemaker Discharge Diagnosis: Sinus node dysfunction Discharge Diagnosis: ASHD (arteriosclerotic heart disease) [facility] Attending Physician: Mandy Klein MD Admitting Physician: Mandy Klein MD Vital Signs Most recent to 1 oldest [Reference Range]: Temperature Oral 36.6 degC [35.8-37.3 degC] (12/14/15 3:00 PM) Temperature Skin 36.2 degC [36-37 degC] (12/13/15 4:00 AM) Temperature Temporal 36.6 degC Artery [36.3-37.8 (12/13/15 11:00 AM) degC] Apical Heart Rate 70 bpm [60-100 bpm] (12/09/15 12:15 PM) Peripheral Pulse 61 bpm Rate [60-100 bpm] (12/14/15 3:00 PM) Heart Rate Monitored 56 bpm [60-100 bpm] *LOW* (12/13/15 8:00 AM) Respiratory Rate 18 br/min [14-20 br/min] (12/14/15 3:00 PM) Blood Pressure 147/63 mmHg [90-140/60-90 mmHg] *HI* (12/14/15 3:00 PM) Mean Arterial 89 mmHg Pressure, Cuff (12/14/15 10:24 AM) Blood Pressure 184/73 mmHg Invasive *HI* [90-140/60-90 mmHg] (12/12/15 3:00 AM) Mean Arterial 101 mmHg Pressure, Invasive (12/12/15 3:00 AM) SpO2 94 % (12/14/15 3:00 PM) Problem List Condition Effective Dates Status Health Status Informant At risk for Active infection(Confirmed) 1 At risk of pressure Active sore(Confirmed) ASHD Active (arteriosclerotic heart disease)(Confirmed) Dyslipidemia(Confirm Active ed) Essential Active hypertension(Confirm ed) H/O cardiac Active pacemaker(Confirmed) Hx of Active CABG(Confirmed) Hx of aortic valve Active replacement with tissue graft(Confirmed) Knowledge Active deficit(Confirmed)2 PAF (paroxysmal Active atrial fibrillation)(Confir med) Respiratory Active failure(Confirmed) Sepsis(Confirmed) Active Tissue perfusion Active alteration(Confirmed )3 1Problem added automatically by system based on initiation of At Risk for Infection in Nutrition Plan of Care 2Problem added automatically by system based on initiation of Knowledge Deficit Plan of Care 3Problem added automatically by system based on initiation of Tissue Perfusion Cerebral Plan of Care Allergies, Adverse Reactions, Alerts No Known Medication Allergies Medications ampicillin 10 g injection 12 gm, IV, q24hr, X 30 days, # 1 Each, 0 Refill(s), other reason (Rx) Start Date: 12/14/15 Stop Date: 01/13/16 Status: Ordered aspirin 81 mg, Oral, Daily, 0 Refill(s) Start Date: 10/06/15 Status: Ordered atropine 0.1 mg/mL injectable solution 0.5 mg 5 mL, IV Push, Once, Other (See Comment), 0 Refill(s) Start Date: 12/14/15 Status: Ordered cefTRIAXone 2 g injection 2 g, IV, q12hr, # 14 Each, 0 Refill(s), other reason (Rx) Start Date: 12/14/15 Stop Date: 01/07/16 Status: Ordered Colace 100 mg oral capsule 100 mg 1 caps, Oral, BID, 0 Refill(s) Start Date: 12/14/15 Status: Ordered diphenhydrAMINE 50 mg oral capsule 50 mg 1 caps, Oral, Bedtime (once a day), Seasonal Allergy Symptoms, 0 Refill(s) Start Date: 12/14/15 Status: Ordered ferrous sulfate 325 mg (65 mg elemental iron) oral delayed release tablet 325 mg 1 tabs, Oral, BIDWM, 0 Refill(s) Start Date: 12/14/15 Status: Ordered fluticasone 50 mcg/inh nasal spray 100 mcg 2 sprays, Nasal, Bedtime (once a day), 0 Refill(s) Start Date: 12/14/15 Status: Ordered heparin 5000 units/mL injectable solution 4,600 units 0.92 mL, IV Push, q6hr, Other (See Comment), 0 Refill(s) Start Date: 12/14/15 Status: Ordered heparin 5000 units/mL injectable solution 2,300 units 0.46 mL, IV Push, q6hr, Other (See Comment), 0 Refill(s) Start Date: 12/14/15 Status: Ordered Heparin Lock Flush 10 units/mL intravenous solution 10 units 1 mL, IV Push, q3min, Other (See Comment), 0 Refill(s) Start Date: 12/14/15 Status: Ordered Heparin Lock Flush 10 units/mL intravenous solution 10 units 1 mL, IV Push, BID, 0 Refill(s) Start Date: 12/14/15 Status: Ordered Klor-Con M20 40 mEq, Oral, BID, 0 Refill(s) Start Date: 10/06/15 Status: Ordered Lanoxin 125 mcg, Oral, Daily, 0 Refill(s) Start Date: 10/06/15 Status: Ordered Lasix 40 mg oral tablet 40 mg 1 tabs, Oral, Daily, 0 Refill(s) Start Date: 12/14/15 Status: Ordered loratadine 10 mg oral tablet 10 mg 1 tabs, Oral, Daily, 0 Refill(s) Start Date: 12/14/15 Status: Ordered Warren 5 mg-325 mg oral tablet 1 tabs, Oral, q4hr, Pain Moderate (4-6), 0 Refill(s) Start Date: 12/14/15 Status: Ordered Normal Saline Flush 10 mL, IV Push, q3min, Other (See Comment), 0 Refill(s) Start Date: 12/14/15 Status: Ordered Normal Saline Flush 10 mL, IV Push, BID, 0 Refill(s) Start Date: 12/14/15 Status: Ordered Normal Saline Flush 2 mL, IV Push, q3min, Other (See Comment), 0 Refill(s) Start Date: 12/14/15 Status: Ordered Normal Saline Flush 2 mL, IV Push, BID, 0 Refill(s) Start Date: 12/14/15 Status: Ordered Norvasc 10 mg, Oral, Daily, 0 Refill(s) Start Date: 10/06/15 Status: Ordered Pravachol 40 mg, Oral, Bedtime (once a day), 0 Refill(s) Start Date: 10/06/15 Status: Ordered predniSONE 10 mg oral tablet 10 mg 1 tabs, Oral, Daily, 0 Refill(s) Start Date: 12/14/15 Status: Ordered PreserVision AREDS 2 1 caps, Oral, BID, 0 Refill(s) Start Date: 12/04/15 Status: Ordered Protonix 40 mg oral delayed release tablet 40 mg 1 tabs, Oral, Daily, 0 Refill(s) Start Date: 12/14/15 Status: Ordered Senokot S 50 mg-8.6 mg oral tablet 1 tabs, Oral, Bedtime (once a day), 0 Refill(s) Start Date: 10/06/15 Status: Ordered Vitamin D3 1000 intl units oral tablet 5,000 Intl_Units 5 tabs, Oral, Daily, 0 Refill(s) Start Date: 12/14/15 Status: Ordered Xarelto 20 mg, Oral, Daily, with food, 0 Refill(s) Start Date: 10/06/15 Status: Ordered ZyrTEC 10 mg, Oral, Daily, 0 Refill(s) Start Date: 10/06/15 Status: Ordered Results Blood Gases Most recent to 1 oldest [Reference Range]: PCO2 Arterial POC 37 mmHg [35-45 mmHg] (12/10/15 7:12 AM) CO2 Totl Art [23-27 26 mEq/L mEq/L] (12/10/15 7:12 AM) Bicarbonate Arterial 24 mEq/L POC [22-26 mEq/L] (12/10/15 7:12 AM) Base Excess Arterial 0 POC [0-2] (12/10/15 7:12 AM) O2 Saturation 100.0 % Arterial POC *HI* [90.0-97.0 %] (12/10/15 7:12 AM) pH Arterial POC 7.43 [7.35-7.45] (12/10/15 7:12 AM) PO2 Arterial POC 251 mmHg [80-100 mmHg] *HI* (12/10/15 7:12 AM) Hematology Most recent to 1 oldest [Reference Range]: WBC [4.8-10.8 12.0 10*3/uL 10*3/uL] *HI* (12/14/15 5:59 AM) RBC [4.60-6.20] 3.37 *LOW* (12/14/15 5:59 AM) Hgb [14.0-18.0 9.9 gm/dL gm/dL] *LOW* (12/14/15 5:59 AM) Hct [42.0-52.0 %] 31.0 % *LOW* (12/14/15 5:59 AM) MCV [82.0-99.0 fL] 92.0 fL (12/14/15 5:59 AM) MCH [27.0-32.0 pg] 29.4 pg (12/14/15 5:59 AM) MCHC [32.0-36.0 31.9 gm/dL gm/dL] *LOW* (12/14/15 5:59 AM) RDW [11.5-14.5 %] 15.4 % *HI* (12/14/15 5:59 AM) Platelet [150-400 183 10*3/uL 10*3/uL] (12/14/15 5:59 AM) MPV [9.4-12.3 fL] 11.8 fL (12/14/15 5:59 AM) Immature 0.4 % Granulocytes (12/13/15 4:47 AM) [0.0-1.0 %] Neutrophils [51-75 68 % %] (12/13/15 4:47 AM) Lymphocytes [20-46 19 % %] *LOW* (12/13/15 4:47 AM) Monocytes [4-11 %] 8 % (12/13/15 4:47 AM) Eosinophils [0-4 %] 4 % (12/13/15 4:47 AM) Basophils [0-2 %] 1 % (12/13/15 4:47 AM) Neutro Absolute 7.72 10*3 [1.90-7.00 10*3] *HI* (12/13/15 4:47 AM) Lymph Absolute 2.13 10*3 [0.80-3.30 10*3] (12/13/15 4:47 AM) [place] Absolute 0.87 10*3 [0.30-1.00 10*3] (12/13/15 4:47 AM) Eos Absolute 0.47 10*3 [0.00-0.50 10*3] (12/13/15 4:47 AM) Baso Absolute 0.08 10*3 [0.00-0.20 10*3] (12/13/15 4:47 AM) Nucleated RBC 0.0 /100 WBC Automated [0 /100 (12/13/15 4:47 AM) WBC] Sed Rate [0-15] 51 *HI* (12/04/15 7:02 PM) Coagulation Most recent to 1 oldest [Reference Range]: INR [0.9-1.2] 1.1 (12/07/15 11:14 AM) PTT [25.0-35.0 26.9 seconds seconds] (12/10/15 5:11 AM) Chemistry Most recent to 1 oldest [Reference Range]: Sodium Lvl [136-144 135 mEq/L mEq/L] *LOW* (12/14/15 5:59 AM) Potassium Lvl 3.7 mEq/L [3.6-5.1 mEq/L] (12/14/15 5:59 AM) Chloride [99-109 97 mEq/L mEq/L] *LOW* (12/14/15 5:59 AM) CO2 [22-32 mEq/L] 26 mEq/L (12/14/15 5:59 AM) AGAP [3-20] 12 (12/14/15 5:59 AM) BUN [4-20 mg/dL] 23 mg/dL *HI* (12/14/15 5:59 AM) Glucose Lvl [70-100 114 mg/dL mg/dL] *HI* (12/14/15 5:59 AM) Creatinine Lvl 1.18 mg/dL [0.64-1.27 mg/dL] (12/14/15 5:59 AM) eGFR [>60] 59 1 *ABN* (12/14/15 5:59 AM) Calcium Lvl 9.4 mg/dL [8.6-10.0 mg/dL] (12/14/15 5:59 AM) Albumin Lvl [3.5-4.8 3.4 gm/dL gm/dL] *LOW* (12/04/15 7:02 PM) Total Protein 6.8 gm/dL [6.1-7.9 gm/dL] (12/04/15 7:02 PM) Globulin [1.9-4.3 3.4 gm/dL gm/dL] (12/04/15 7:02 PM) ALT [17-63 U/L] 19 U/L (12/04/15 7:02 PM) AST [15-41 U/L] 21 U/L (12/04/15 7:02 PM) Alk Phos [26-104 59 U/L U/L] (12/04/15 7:02 PM) Bili Total [0.2-1.2 0.6 mg/dL 2 mg/dL] (12/04/15 7:02 PM) Magnesium Lvl 2.2 mg/dL [1.8-2.5 mg/dL] (12/14/15 5:59 AM) Sodium Arterial NPT 136 mEq/L [136-144 mEq/L] (12/10/15 7:12 AM) Potassium Arterial 3.9 mEq/L 3 NPT [3.6-5.1 mEq/L] (12/10/15 7:12 AM) Calcium Ionized 1.18 mmol/L Arterial NPT *LOW* [1.19-1.41 mmol/L] (12/10/15 7:12 AM) HCT Arterial NPT 28.0 % (12/10/15 7:12 AM) HGB Arterial NPT 9.5 gm/dL (12/10/15 7:12 AM) Arterial Glucose NPT 102 mg/dL [70-100 mg/dL] *HI* (12/10/15 7:12 AM) Activated Clotting 116 seconds Time NPT [100-146 (12/10/15 7:11 AM) seconds] Blood Glucose, 86 mg/dL Capillary [70-100 (12/10/15 4:55 AM) mg/dL] 1Result Comment: Multiply eGFR results by 1.21 for race. 2Result Comment: Naproxen, specifically the metabolite O-desmethylnaproxen, may cause spurious elevation in Total Bilirubin levels. 3Result Comment: This test was performed on a whole blood specimen. The presence or absence of hemolysis cannot be assessed. Hemolysis can falsely elevate potassium levels. Normals are for venous specimens only. Urinalysis Most recent to 1 oldest [Reference Range]: UA Color Yellow (12/11/15 7:30 AM) UA Appear Clear (12/11/15 7:30 AM) UA pH [5.0-8.0] 5.0 (12/11/15 7:30 AM) UA Leuk Est Negative [Negative] (12/11/15 7:30 AM) UA Nitrite Negative [Negative] (12/11/15 7:30 AM) UA Protein Negative [Negative] (12/11/15 7:30 AM) UA Glucose Negative [Negative] (12/11/15 7:30 AM) UA Ketones Negative [Negative] (12/11/15 7:30 AM) UA Urobilinogen Negative [<1.0] (12/11/15 7:30 AM) UA Bili [Negative] Negative (12/11/15 7:30 AM) UA Blood [Negative] Negative (12/11/15 7:30 AM) UA Spec Grav 1.020 [1.003-1.030] (12/11/15 7:30 AM) Type Matos (12/11/15 7:30 AM) Blood Bank Results Most recent to 1 oldest [Reference Range]: ABO/Rh A POS (12/09/15 6:34 PM) Antibody Screen Tube NEG (12/09/15 6:34 PM) Microbiology Reports (Most Recent Ten) TEST: Wound Culture and Smear STATUS: Auth (Verified) BODY SITE: SOURCE: Surgical-Wound COLLECTED DATE/TIME: 12/10/15 8:15 AM Wound Culture No growth TEST: Wound Culture and Smear STATUS: Auth (Verified) BODY SITE: SOURCE: Surgical-Wound COLLECTED DATE/TIME: 12/10/15 8:15 AM Gram Smear No white blood cells Innumerable (>50/OIF) red blood cells No squamous epithelial cells No microorganisms observed OIF=Oil Immersion Field LPF=Low Power Field TEST: Wound Culture and Smear STATUS: Auth (Verified) BODY SITE: SOURCE: Surgical-Wound COLLECTED DATE/TIME: 12/10/15 8:15 AM Gram Smear Rare (0-1/OIF) white blood cells Many (10-20/OIF) red blood cells No squamous epithelial cells No microorganisms observed OIF=Oil Immersion Field LPF=Low Power Field TEST: Acid Fast Bacilli Culture and Smear STATUS: Order in Progress BODY SITE: SOURCE: Surgical-Wound COLLECTED DATE/TIME: 12/10/15 8:15 AM Acid Fast Smear Only No acid fast bacilli seen TEST: Acid Fast Bacilli Culture and Smear STATUS: Order in Progress BODY SITE: SOURCE: Surgical-Wound COLLECTED DATE/TIME: 12/10/15 8:15 AM Acid Fast Bacilli Culture and Smear Culture in progress TEST: Acid Fast Bacilli Culture and Smear STATUS: Order in Progress BODY SITE: SOURCE: Surgical-Wound COLLECTED DATE/TIME: 12/10/15 8:15 AM Acid Fast Smear Only No acid fast bacilli seen TEST: Anaerobic Culture STATUS: Auth (Verified) BODY SITE: SOURCE: Surgical-Wound COLLECTED DATE/TIME: 12/10/15 8:15 AM Anaerobic Culture No anaerobes isolated TEST: Anaerobic Culture STATUS: Auth (Verified) BODY SITE: SOURCE: Surgical-Wound COLLECTED DATE/TIME: 12/10/15 8:15 AM Anaerobic Culture No anaerobes isolated TEST: Anaerobic Culture STATUS: Auth (Verified) BODY SITE: SOURCE: Surgical-Wound COLLECTED DATE/TIME: 12/10/15 8:15 AM Anaerobic Culture No anaerobes isolated TEST: Fungus Culture & Calcofluor White Stain STATUS: Order in Progress BODY SITE: SOURCE: Surgical-Wound COLLECTED DATE/TIME: 12/10/15 8:15 AM Fungus Culture Culture in progress Immunizations No data available for this section Procedures Procedure Date Related Diagnosis Body Site Extraction Lead1 12/10/15 Echo Transesophageal2 12/09/15 1auto-populated from documented surgical case 2auto-populated from documented surgical case Social History Social History Type Response Smoking Status Former smoker; Type: Cigarettes; Tobacco use per day: More than 1 pack; Number of years: 60 Assessment and Plan No data available for this section
--- OUTSIDE RECORDS SUMMARY | 2017-02-03 17:42 | XMS REPORT | CCD ---
Author Author SERGIO TELLEZ Organization Unknown Address [address], [place] [id number] Phone 0 Care Team Providers Care Police Sergeant Name Role Phone TORSTEN OLIVARES Attending Physician 0 Vital Signs Unknown or Not Available. Allergies Allergy Code Allergy Type Reaction Status No Known Drug Allergies 0 No known drug allergies Active Procedures Unknown or Not Available. History of Immunizations Unknown or Not Available. Problems Unknown or Not Available. Results COMP METABOLIC - Collect Date/Time: 01/29/2015 09:45 Test Name Code Test Result Test Units Test Ref Range GLUCOSE 92 mg/dL L=70 H=110 BUN 25 mg/dL L=7 H=18 CREATININE 1.40 mg/ dL L=0.60 H=1.30 AGE 84 YEARS GFR 51.4 SODIUM 141 mmol/L L=136 H=145 POTASSIUM 3.3 mmol/ L L=3.5 H=5.1 CHLORIDE 103 mmol/L L=98 H=107 CO2 31 mmol/L L=21 H=32 CALCIUM 8.7 mg/dL L=8.5 H=10.1 AST 34 U/L L=15 H=37 ALT 48 U/L L=12 H=78 ALKALINE PHOS 74 U/ L L=46 H=116 TOTAL PROTEIN 7.8 g/ dL L=6.4 H=8.2 ALBUMIN 3.6 g/dL L=3.4 H=5.0 TOTAL BILI 0.40 mg/ dL L=0.00 H=1.00 CBC W/ DIFF - Collect Date/Time: 01/29/2015 09:45 Test Name Code Test Result Test Units Test Ref Range WBC 8.2 x10^3 L=4.8 H=10.8 RBC 3.93 x10^6 L=4.70 H=6.10 HEMOGLOBIN 11.8 g/ dL L=14.0 H=18.0 HEMATOCRIT 34.6 % L=42.0 H=52.0 MCV 88 fL L=80 H=100 MCH 30.0 pg L=27.0 H=33.0 MCHC 34.1 g/dL L=33.0 H=37.0 RDW 14.8 % L=11.5 H=14.5 PLATELETS 133 x10^3 L=150 H=450 MPV 10.9 fL L=7.8 H=11.0 NEUTROPHILS 54.2 % L=40.0 H=80.0 LYMPHOCYTES 26.1 % L=20.0 H=45.0 MONOCYTES 10.9 % L=0.0 H=10.0 EOSINOPHILS 7.9 % L=0.0 H=5.0 BASOPHILS 0.9 % L=0.0 H=2.0 REFLEX MAN DIFF NO N /A UA AUTO W/ MICRO - Collect Date/Time: 01/29/2015 09:50 Test Name Code Test Result Test Units Test Ref Range COLOR Yellow N/A NORMAL: Yellow APPEARANCE Clear N/ A NORMAL: Clear GLUCOSE Negative N/ A NORMAL: Negative BILIRUBIN Negative N /A NORMAL: Negative KETONE Negative N/A NORMAL: Negative SPEC GRAVITY 1.015 N /A NORMAL: 1.005-1.030 BLOOD Negative N/A NORMAL: Negative PROTEIN Negative N/ A NORMAL: Negative PH 6.0 N/A NORMAL: 5.0-8.0 UROBILINOGEN 0.2 N/ A NORMAL: Negative NITRITE Negative N/ A NORMAL: Negative LEUKOCYTES Negative N/A NORMAL: Negative MICRO RBC 0-2 N/A NORMAL: 0-2 MICRO WBC 0-2 N/A NORMAL: 0-2 BACTERIA None Seen N /A NORMAL: None-Trace EPI CELLS None Seen N/A NORMAL: 0-15 MUCUS Trace N/A NORMAL: None-Small AMORPHOUS None Seen N/A NORMAL: None Seen YEAST None Seen N/A NORMAL: None Seen CRYSTALS None Seen N /A NORMAL: None Seen CAST Hyaline C N/A NORMAL: None Seen URINE CULTURE? NO N/ A Active Medications Unknown or Not Available. Medications Administered During Visit Unknown or Not Available. Encounters Encounter Diagnosis Diagnosis Code Start Date ANEMIA NOS 2859 01/29/2015 Social History Smoking Status Code Start Date End Date Former smoker [id number] Patient Decision Aids Unknown or Not Available. Discharge Instructions You were admitted to [facility] on 01/29/2015 with a principal diagnosis of ANEMIA NOS. You were discharged from [facility] on 01/29/2015. Should you have any questions prior to [...]
--- OUTSIDE RECORDS SUMMARY | 2017-02-03 17:42 | XMS REPORT | CCD ---
Author Author SCOTT BOYKIN Organization Unknown Address [address], [place] [id number] Phone 0 Care Team Providers Care Planner Scheduler Name Role Phone Zi KENNEDY Attending Physician 0 C., N Nurse Assisstant 0 P., L Nurse Assisstant 0 T., A Nurse Assisstant 0 N., ELDON Nurse Assisstant 0 Vital Signs Vital Sign Value Unit Date/Time Recent/Initial? BP Systolic 109 mmHg 08/15/2016 15:50 Initial VS BP Diastolic 65 mmHg 08/15/2016 15:50 Initial VS Respiratory Rate 20 bpm 08/15/2016 15:50 Initial VS Heart Rate 105 bpm 15:50 Initial VS O2 % BldC Oximetry 99 % 08/15/2016 15:50 Initial VS Body Temperature 98.2 degrees 08/15/2016 15:50 Initial VS Weight Measured 187 lbs 08/15/2016 16:01 Initial VS Height 72 in 2015 16:01 Initial VS BMI (Body Mass Index) 25.36 kg/m^2 08/15/2016 16:01 Initial VS BSA (Body Surface Area) 2.08 m^2 08/15/2016 16:01 Initial VS Weight Measured 167 lbs 08/16/2016 08:36 Most Recent VS Height 72 in 2015 08:36 Most Recent VS BMI (Body Mass Index) 22.65 kg/m^2 08/16/2016 08:36 Most Recent VS BSA (Body Surface Area) 1.96 m^2 08/16/2016 08:36 Most Recent VS BP Systolic 122 mmHg 08/17/2016 20:49 Most Recent VS BP Diastolic 66 mmHg 08/17/2016 20:49 Most Recent VS Respiratory Rate 18 bpm 08/17/2016 20:49 Most Recent VS Heart Rate 82 bpm 20:49 Most Recent VS O2 % BldC Oximetry 98 % 08/17/2016 20:49 Most Recent VS Body Temperature 98.5 degrees 08/17/2016 20:49 Most Recent VS Allergies Allergy Code Allergy Type Reaction Status No Known Drug Allergies 0 No known drug allergies Active Procedures Procedure Code Procedure Type Date CHEST [id number] 08/18/2016 CHEST [id number] 08/15/2016 History of Immunizations Immunization Code Date Td (adult), adsorbed 09 11/20/2005 pneumococcal polysaccharide PPV23 33 Influenza, seasonal, injectable 141 09/02 Problems Unknown or Not Available. Results BASIC METABOLIC - Collect Date/Time: 08/18/2016 08:45 Test Name Code Test Result Test Units Test Ref Range GLUCOSE 130 mg/dL L=70 H=110 BUN 21 mg/dL L=7 H=18 CREATININE 1.10 mg/ dL L=0.60 H=1.30 AGE 86 YEARS GFR 63.6 SODIUM 141 mmol/L L=136 H=145 POTASSIUM 3.2 mmol/ L L=3.5 H=5.1 CHLORIDE 103 mmol/L L=98 H=107 CO2 27 mmol/L L=21 H=32 CALCIUM 8.6 mg/dL L=8.5 H=10.1 BASIC METABOLIC - Collect Date/Time: 08/16/2016 07:20 Test Name Code Test Result Test Units Test Ref Range GLUCOSE 111 mg/dL L=70 H=110 BUN 23 mg/dL L=7 H=18 CREATININE 1.11 mg/ dL L=0.60 H=1.30 AGE 86 YEARS GFR 63.0 SODIUM 135 mmol/L L=136 H=145 POTASSIUM 3.8 mmol/ L L=3.5 H=5.1 CHLORIDE 100 mmol/L L=98 H=107 CO2 28 mmol/L L=21 H=32 CALCIUM 8.7 mg/dL L=8.5 H=10.1 C-REACTIVE PROTEIN - Collect Date/Time: 08/15/2016 13:32 Test Name Code Test Result Test Units Test Ref Range CRP 119 mg/L L=0 H=5 CARDIAC PANEL - Collect Date/Time: 08/15/2016 13:32 Test Name Code Test Result Test Units Test Ref Range CKMB 0.2 ng/mL L=0.0 H=3.6 CPK 29 U/L L=26 H=308 CKMB% 0.7 % L=0.0 H=4.0 TROPONIN I <0.02 ng/ mL L=0.00 H=0.05 COMP METABOLIC - Collect Date/Time: 08/15/2016 13:32 Test Name Code Test Result Test Units Test Ref Range GLUCOSE 121 mg/dL L=70 H=110 BUN 26 mg/dL L=7 H=18 CREATININE 1.17 mg/ dL L=0.60 H=1.30 AGE 86 YEARS GFR 59.2 SODIUM 134 mmol/L L=136 H=145 POTASSIUM 4.0 mmol/ L L=3.5 H=5.1 CHLORIDE 99 mmol/L L=98 H=107 CO2 26 mmol/L L=21 H=32 CALCIUM 8.5 mg/dL L=8.5 H=10.1 AST 15 U/L L=15 H=37 ALT 17 U/L L=12 H=78 ALKALINE PHOS 73 U/ L L=46 H=116 TOTAL PROTEIN 6.9 g/ dL L=6.4 H=8.2 ALBUMIN 2.6 g/dL L=3.4 H=5.0 TOTAL BILI 0.60 mg/ dL L=0.00 H=1.00 PRO B-TYPE NATRIURETIC PEPTIDE - Collect Date/Time: 08/18/2016 08:45 Test Name Code Test Result Test Units Test Ref Range PBNP 1913 pg/mL L=0 H=450 PRO B-TYPE NATRIURETIC PEPTIDE - Collect Date/Time: 08/16/2016 07:20 Test Name Code Test Result Test Units Test Ref Range PBNP 2998 pg/mL L=0 H=450 PRO B-TYPE NATRIURETIC PEPTIDE - Collect Date/Time: 08/15/2016 13:32 Test Name Code Test Result Test Units Test Ref Range PBNP 2275 pg/mL L=0 H=450 CBC W/ DIFF - Collect Date/Time: 08/18/2016 08:45 Test Name Code Test Result Test Units Test Ref Range WBC 11.3 x10^3 L=4.8 H=10.8 RBC 3.32 x10^6 L=4.70 H=6.10 HEMOGLOBIN 9.5 g/dL L=14.0 H=18.0 HEMATOCRIT 28.0 % L=42.0 H=52.0 MCV 84 fL L=80 H=100 MCH 28.6 pg L=27.0 H=33.0 MCHC 33.9 g/dL L=33.0 H=37.0 RDW 15.6 % L=11.5 H=14.5 PLATELETS 224 x10^3 L=150 H=450 MPV 8.8 fL L=7.8 H=11.0 NEUTROPHILS 77.9 % L=40.0 H=80.0 LYMPHOCYTES 10.6 % L=20.0 H=45.0 MONOCYTES 7.0 % L=0.0 H=10.0 EOSINOPHILS 4.1 % L=0.0 H=5.0 BASOPHILS 0.4 % L=0.0 H=2.0 REFLEX MAN DIFF NO N /A CBC W/ DIFF - Collect Date/Time: 08/16/2016 07:20 Test Name Code Test Result Test Units Test Ref Range WBC 15.4 x10^3 L=4.8 H=10.8 RBC 3.32 x10^6 L=4.70 H=6.10 HEMOGLOBIN 9.5 g/dL L=14.0 H=18.0 HEMATOCRIT 28.1 % L=42.0 H=52.0 MCV 85 fL L=80 H=100 MCH 28.5 pg L=27.0 H=33.0 MCHC 33.6 g/dL L=33.0 H=37.0 RDW 15.7 % L=11.5 H=14.5 PLATELETS 199 x10^3 L=150 H=450 MPV 9.0 fL L=7.8 H=11.0 NEUTROPHILS 82.4 % L=40.0 H=80.0 LYMPHOCYTES 7.4 % L=20.0 H=45.0 MONOCYTES 8.5 % L=0.0 H=10.0 EOSINOPHILS 1.3 % L=0.0 H=5.0 BASOPHILS 0.4 % L=0.0 H=2.0 SEG 76 %% L=40 H=80 BAND 6 %% L=0 H=5 LYMPH 6 %% L=20 H=45 MONO 11 %% L=0 H=10 EOS 1 %% L=0 H=5 BASO 0 %% L=0 H=2 ATYP LYMPH 0 %% L=0 H=10 META 0 %% L=0 H=1 REFLEX MAN DIFF YES N/A RBC MORPHOLOGY NORMAL N/A CBC W/ DIFF - Collect Date/Time: 08/15/2016 13:32 Test Name Code Test Result Test Units Test Ref Range WBC 14.9 x10^3 L=4.8 H=10.8 RBC 3.36 x10^6 L=4.70 H=6.10 HEMOGLOBIN 9.5 g/dL L=14.0 H=18.0 HEMATOCRIT 28.4 % L=42.0 H=52.0 MCV 85 fL L=80 H=100 MCH 28.4 pg L=27.0 H=33.0 MCHC 33.5 g/dL L=33.0 H=37.0 RDW 15.6 % L=11.5 H=14.5 PLATELETS 206 x10^3 L=150 H=450 MPV 9.6 fL L=7.8 H=11.0 NEUTROPHILS 82.5 % L=40.0 H=80.0 LYMPHOCYTES 7.0 % L=20.0 H=45.0 MONOCYTES 8.1 % L=0.0 H=10.0 EOSINOPHILS 2.0 % L=0.0 H=5.0 BASOPHILS 0.4 % L=0.0 H=2.0 SEG 87 %% L=40 H=80 BAND 1 %% L=0 H=5 LYMPH 7 %% L=20 H=45 MONO 1 %% L=0 H=10 EOS 3 %% L=0 H=5 BASO 1 %% L=0 H=2 ATYP LYMPH 0 %% L=0 H=10 META 0 %% L=0 H=1 REFLEX MAN DIFF YES N/A RBC MORPHOLOGY SEE BELOW N/A ANISO SLIGHT N/A NORMAL: NONE SEEN POIK NONE SEEN N/A NORMAL: NONE SEEN HYPO NONE SEEN N/A NORMAL: NONE SEEN MICRO NONE SEEN N/A NORMAL: NONE SEEN MACRO NONE SEEN N/A NORMAL: NONE SEEN POLY NONE SEEN N/A NORMAL: NONE SEEN TOXIC GRAN NONE SEEN N/A NORMAL: NONE SEEN NUCLEATED RBC NONE SEEN N/A NORMAL: NONE SEEN SED RATE AUTO - Collect Date/Time: 08/15/2016 13:32 Test Name Code Test Result Test Units Test Ref Range SED RATE 82 mm/HR L=0 H=10 CULTURE BLOOD - Collect Date/Time: 08/15/2016 13:37 Test Name Code Test Result Test Units Test Ref Range SOURCE: BLOOD N/A Blood Culture, Routine 600-7 Final report N/A CULTURE BLOOD - Collect Date/Time: 08/15/2016 13:32 Test Name Code Test Result Test Units Test Ref Range SOURCE: BLOOD N/A Blood Culture, Routine 600-7 Final report N/A Active Medications Unknown or Not Available. Medications Administered During Visit Medication Dose Units Frequency Route Date/Time of Last Dose SALINE FLUSH 10ML SYRINGE 10 ML BID IV PUSH 08/17/2016 20:58 VANCOMYCIN/NS IVPB: 1GM/250ML 1 GM Q24H IVPB 08/17/2016 17:05 ASPIRIN CHEWABLE TAB: 81 MG 81 MG QD PO 08/18/2016 08:22 ZYRTEC TAB: 10 MG 10 MG QD PO 08/17/2016 16:26 FERROUS SULFATE (FEOSOL) TAB : 325MG 325 MG bid PO 08/18/2016 08 :22 FUROSEMIDE (LASIX)TAB:20 MG 20 MG QD PO 08/18/2016 08:22 PANTOPRAZOLE (PROTONIX) TAB : 40MG 40 MG QD PO 08/18/2016 08: 22 K TAB (POTASSIUM) TAB : 10MEQ 10 MEQ QD PO 08/18/2016 08:22 PREDNISONE (DELTASONE) TAB : 5MG 5 MG QD PO 08/18/2016 08:22 VERAPAMIL (CALAN) CAPLET ER : 240MG 250 MG QD PO 08/18/2016 08: 22 VITAMIN D CAP: 5000 UNITS 5000 UNITS DAILY PO 08/18/2016 08:22 CARVEDILOL (COREG) TAB: 12.5 MG 12.5 MG BID PO 08/18/2016 08: 22 MULTAQ TAB: 400 MG 400 MG BID ORAL 08/18/2016 08:22 OCUVITE TAB: 1 TAB QD PO 08/18/2016 08:22 XARELTO TAB: 20 MG 20 MG QD PO 08/17/2016 17:06 NF-PRAVASTATIN SODIUM ORAL TABLET 40MG 40 MG DAILY/HS ORAL 20:12 BUMETANIDE (BUMEX) INJ:0.25 MG/ML 10ML 1 MG QD IV PUSH 2015 08:22 CEFTRIAXONE/NS IVPB: 1 GM/50 ML 1 GM Q24H IVPB 08/17/2016 15: 33 LEVAQUIN 500 MG/ NS 100 ML: IVPB 500 MG Q24H IVPB 08/17/2016 16 :26 NS 0.9% 250ML 250 ML QD IV 08/17/2016 15:32 NS 0.9% INJ : 10ML VIAL 1 EA PRN IVP 08/15/2016 17:00 Encounters Encounter Diagnosis Diagnosis Code Start Date Pneumonia, unspecified organism [id number] Social History Smoking Status Code Start Date End Date Former smoker [id number] Patient Decision Aids Unknown or Not Available. Discharge Instructions You were admitted to [facility] on 08/15/2016 15:16 with a principal diagnosis of Pneumonia, unspecified organism You had the following tests done: BASIC METABOLIC BASIC METABOLIC C- REACTIVE PROTEIN CARDIAC PANEL CBC W/ DIFF CBC W/ DIFF CBC W/ DIFF COMP METABOLIC CULTURE BLOOD CULTURE BLOOD PRO B-TYPE NATRIURETIC PEPTIDE PRO B-TYPE NATRIURETIC PEPTIDE PRO B-TYPE NATRIURETIC PEPTIDE SED RATE AUTO You were discharged from [facility] on 08/18/2016 10:00 Should you have any questions prior to discharge, please contact a member of your healthcare team. If you have left the hospital and have any questions, please contact your primary care physician. Chief Complaint and Reason For Visit Chief Complaint Date of Onset HCAP, ANEMIA, HYPOXIA Function Status Unknown or Not Available. Plan of Care Unknown or Not Available. Referral/Transition of Care Unknown or Not Available.
--- OUTSIDE RECORDS SUMMARY | 2017-02-03 17:42 | XMS REPORT | CCD ---
Author Author SCOTT BOYKIN Organization Unknown Address [address], [place] [id number] Phone 0 Care Team Providers Care Bag Sewer Name Role Phone CINDY HAZEL Attending Physician [phone] Vital Signs Unknown or Not Available. Allergies [...] Modification Start Date/Time Carvedilol 25MG Oral Tablet 519308 12.5 MILLIGRAMS TWICE A DAY ORAL 08/19/2016 16:19 Prescription Detail 12.5 MILLIGRAMS ORAL TWICE A DAY PreserVision Areds Oral Capsule, Liquid Filled 02460768870 1 EACH TWICE A DAY ORAL 08/19/2016 16:19 Prescription Detail 1 EACH ORAL TWICE A DAY Vancomycin HCl 1GM Intravenous Powder for Solution 532127 1 GRAM DAILY INTRAVENOUS 08/19/2016 16:19 Prescription Detail 1 GRAM INTRAVENOUS DAILY Verapamil HCl 240MG Oral Tablet, Extended Release [id number] 240 MILLIGRAMS DAILY ORAL 08/19/2016 16:19 Prescription Detail 240 MILLIGRAMS ORAL DAILY Xarelto 20MG Oral Tablet [id number] 20 MILLIGRAMS ORAL 08/19/2016 16:19 Prescription Detail 20 MILLIGRAMS ORAL Multaq 400MG Oral Tablet [id number] 400 MILLIGRAMS TWICE A DAY ORAL 07/08/2016 10:35 Prescription Detail 400 MILLIGRAMS ORAL TWICE A DAY Nitrostat 0.4MG Sublingual Tablet 891047 0.4 MILLIGRAMS NEEDED SUBLINGUAL 07/08/2016 10:[address] 0.4 MILLIGRAMS SUBLINGUAL NEEDED predniSONE 5MG Oral Tablet 712264 5 MILLIGRAMS DAILY ORAL 07/08/2016 10:35 Prescription Detail 5 MILLIGRAMS ORAL DAILY Aspir Low 81MG Oral Tablet, Enteric Coated [id number] 81 MILLIGRAMS DAILY ORAL 04/20/2016 10:56 Prescription Detail 81 MILLIGRAMS ORAL DAILY Klor-Con M20 20MEQ Oral Tablet, Extended Release 465680 20 MEQ TWICE A DAY ORAL 04/20/2016 10:56 Prescription Detail 20 MEQ ORAL TWICE A DAY Vitamin D3 5000 IU Oral Tablet 61237404410 5000 IU DAILY ORAL 04/20/2016 10:56 Prescription Detail 5000 IU ORAL DAILY Ferrous Sulfate 325MG Oral Tablet 033520 325 MILLIGRAMS TWICE A DAY ORAL 12/31/2015 12:54 Prescription Detail 325 MILLIGRAMS ORAL TWICE A DAY Pantoprazole Sodium 40MG Oral Tablet, Enteric Coated 328289 40 MILLIGRAMS DAILY ORAL 06/25/2015 10:29 Prescription Detail 40 MILLIGRAMS ORAL DAILY Pravastatin 40MG Oral Tablet 777777 40 MILLIGRAMS DAILY ORAL 06/25/2015 10:29 Prescription Detail 40 MILLIGRAMS ORAL DAILY ZyrTEC 10MG Oral Tablet 2762111 10 MILLIGRAMS NEEDED ORAL 06/25/2015 10:29 Prescription Detail 10 MILLIGRAMS ORAL NEEDED Medications Administered During Visit Unknown or Not Available. Encounters Encounter Diagnosis Diagnosis Code Start Date Muscle weakness (generalized) M6281 08/20 Social History Smoking Status Code Start Date End Date Former smoker [id number] Patient Decision Aids Unknown or Not Available. Discharge Instructions You were admitted to [facility] on 08/20/2016 00:01 with a principal diagnosis of Muscle weakness (generalized) You were discharged from [facility] Should you have any questions prior to discharge, please contact a member of your healthcare team. If you have left the hospital and have any questions, please contact your primary care physician. Chief Complaint and Reason For Visit Chief Complaint Date of Onset RECURRING PHT Function Status Unknown or Not Available. Plan of Care Unknown or Not Available. Referral/Transition of Care Unknown or Not Available.
--- OUTSIDE RECORDS SUMMARY | 2017-02-03 17:42 | XMS REPORT | CCD ---
Author Author SCOTT BOYKIN Organization Unknown Address [address], [place] [phone] Phone 0 Care Team Providers Care Supervisor Coal Handling Name Role Phone JAKE MCCRAY Attending Physician [...] Klor-Con M20 20MEQ Oral Tablet, Extended Release 512325 40 MILLIEQUIVALENT TWICE A DAY BY MOUTH 2014 12:24 Prescription Detail TAKE 40 MILLIEQUIVALENT BY MOUTH TWICE A DAY Lasix 40MG Oral Tablet 671836 40 MILLIGRAMS DAILY ORAL 10/14/2015 12:24 Prescription Detail 40 MILLIGRAMS ORAL DAILY Norvasc 5MG Oral Tablet 070348 5 MILLIGRAMS AT BEDTIME ORAL 10/14/2015 12:24 Prescription Detail 5 MILLIGRAMS ORAL AT BEDTIME predniSONE 10MG Oral Tablet 552227 10 MILLIGRAMS DAILY ORAL 10/14/2015 12:24 Prescription Detail 10 MILLIGRAMS ORAL DAILY Colace 100MG Oral Capsule, Liquid Filled 7101966 100 MILLIGRAMS bid BY MOUTH 06/25/2015 10:30 Prescription Detail TAKE 100 MILLIGRAMS BY MOUTH bid Lopressor 50MG Oral Tablet 130016 50 MILLIGRAMS TWICE A DAY BY MOUTH 06/25/2015 10:30 Prescription Detail TAKE 50 MILLIGRAMS BY MOUTH TWICE A DAY Tums Regular Strength 500MG Oral Tablet, Chewable 074040 6759 MILLIGRAMS PRN QID BY MOUTH 06/25/2015 10:30 Prescription Detail TAKE 1000 MILLIGRAMS BY MOUTH PRN QID Aspirin 81MG Oral Tablet 927707 81 MILLIGRAMS DAILY ORAL 06/25/2015 10:29 Prescription Detail 81 MILLIGRAMS ORAL DAILY Digoxin 0.125MG Oral Tablet 581629 0.125 MILLIGRAMS DAILY ORAL 06/25/2015 10:29 Prescription Detail 0.125 MILLIGRAMS ORAL DAILY Mapap 325MG Oral Tablet [id number] 325 MILLIGRAMS PRN Q6H BY MOUTH 06/25/2015 10:29 Prescription Detail TAKE 325 MILLIGRAMS BY MOUTH PRN Q6H Milk Of Magnesia 1200MG/15ML Oral Suspension [id number] 1 EACH NEEDED ORAL 06/25/2015 10:29 Prescription Detail 1 EACH ORAL NEEDED Nature's Blend Vitamin D3 5000IU Oral Tablet 544074 9644 INTERNATIONAL UNITS DAILY ORAL 2014 10:29 Prescription Detail 5000 INTERNATIONAL UNITS ORAL DAILY Pantoprazole Sodium 40MG Oral Tablet, Enteric Coated 616911 40 MILLIGRAMS DAILY ORAL 06/25/2015 10:29 Prescription Detail 40 MILLIGRAMS ORAL DAILY Pravastatin 40MG Oral Tablet 508710 40 MILLIGRAMS DAILY ORAL 06/25/2015 10:29 Prescription Detail 40 MILLIGRAMS ORAL DAILY Xarelto 20MG Oral Tablet [id number] 20 MILLIGRAMS QD ORAL 06/25/2015 10:29 Prescription Detail 20 MILLIGRAMS ORAL QD ZyrTEC 10MG Oral Tablet [id number] 10 MILLIGRAMS NEEDED ORAL 06/25/2015 10:29 Prescription Detail 10 MILLIGRAMS ORAL NEEDED Medications Administered During Visit Unknown or Not Available. 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 Discharge Instructions You were admitted to [facility] on 10/19/2015 with a principal diagnosis of Intervertebral disc disorders with myelopathy, lumbar region. Should you have any questions prior to discharge, please contact a member of your healthcare team. If you have left the hospital and have any questions, please contact your primary care physician. Chief Complaint and Reason For Visit Chief Complaint Date of Onset PHY THER Function Status Unknown or Not Available. Plan of Care Unknown or Not Available. Referral/Transition of Care Unknown or Not Available.
--- OUTSIDE RECORDS SUMMARY | 2017-02-03 17:42 | XMS REPORT | CCD ---
Author Author SERGIO TELLEZ Organization Unknown Address [address] [place], [place] [address] Phone 0 Care Team Providers Care Radiator Fitter Name Role Phone TORTSEN OLIVARES Attending Physician 0 Vital Signs Unknown [...] Code Start Date End Date Former smoker [id number] Patient Decision Aids Unknown or Not Available. Discharge Instructions You were admitted to [facility] AT [facility] on 05/20/2014. You were discharged from [facility] AT [facility] on 05/20/2014. Should you have any questions prior to discharge, please contact a member of your healthcare team. If you have left the hospital and have any questions, please contact your primary care physician. Chief Complaint and Reason For Visit Chief Complaint Date of Onset XR LT HIP PELVIS Function Status Unknown or Not Available. Plan of Care Unknown or Not Available. Referral/Transition of Care Unknown or Not Available.
--- OUTSIDE RECORDS SUMMARY | 2017-02-03 17:42 | XMS REPORT | CCD ---
Author Author SCOTT BOYKIN Organization Unknown Address [address], [place] [phone] Phone 0 Care Team Providers Care Ampoule Sealer Name Role Phone JAKE MCCRAY Attending Physician 0 Vital Signs Unknown or Not Available. Allergies Allergy Code Allergy Type Reaction Status No Known Drug Allergies 0 No known drug allergies Active Procedures Unknown or Not Available. History of Immunizations Unknown or Not Available. Problems Unknown or Not Available. Results BASIC METABOLIC - Collect Date/Time: 11/27/2015 12:05 Test Name Code Test Result Test Units Test Ref Range GLUCOSE 139 mg/dL L=70 H=110 BUN 23 mg/dL L=7 H=18 CREATININE 1.60 mg/ dL L=0.60 H=1.30 AGE 85 YEARS GFR 44.0 SODIUM 134 mmol/L L=136 H=145 POTASSIUM 4.4 mmol/ L L=3.5 H=5.1 CHLORIDE 101 mmol/L L=98 H=107 CO2 23 mmol/L L=21 H=32 CALCIUM 8.9 mg/dL L=8.5 H=10.1 CBC W/ DIFF - Collect Date/Time: 11/27/2015 12:05 Test Name Code Test Result Test Units Test Ref Range WBC 13.6 x10^3 L=4.8 H=10.8 RBC 3.35 x10^6 L=4.70 H=6.10 HEMOGLOBIN 10.2 g/ dL L=14.0 H=18.0 HEMATOCRIT 30.8 % L=42.0 H=52.0 MCV 92 fL L=80 H=100 MCH 30.3 pg L=27.0 H=33.0 MCHC 33.0 g/dL L=33.0 H=37.0 RDW 14.7 % L=11.5 H=14.5 PLATELETS 139 x10^3 L=150 H=450 MPV 9.5 fL L=7.8 H=11.0 NEUTROPHILS 84.5 % L=40.0 H=80.0 LYMPHOCYTES 7.2 % L=20.0 H=45.0 MONOCYTES 7.2 % L=0.0 H=10.0 EOSINOPHILS 0.6 % L=0.0 H=5.0 BASOPHILS 0.5 % L=0.0 H=2.0 SEG 80 %% L=40 H=80 BAND 12 %% L=0 H=5 LYMPH 3 LC%% L=20 H=45 MONO 5 %% L=0 H=10 EOS 0 %% L=0 H=5 BASO 0 %% L=0 H=2 ATYP LYMPH 0 %% L=0 H=10 META 0 %% L=0 H=1 REFLEX MAN DIFF YES N/A RBC MORPHOLOGY NORMAL N/A UA AUTO W/ MICRO - Collect Date/Time: 11/27/2015 11:45 Test Name Code Test Result Test Units Test Ref Range COLOR Yellow N/A NORMAL: Yellow APPEARANCE Clear N/ A NORMAL: Clear GLUCOSE Negative N/ A NORMAL: Negative BILIRUBIN Negative N /A NORMAL: Negative KETONE Negative N/A NORMAL: Negative SPEC GRAVITY 1.010 N /A NORMAL: 1.005-1.030 BLOOD Trace-ly N/A NORMAL: Negative PROTEIN Negative N/ A NORMAL: Negative PH 5.0 N/A NORMAL: 5.0-8.0 UROBILINOGEN 0.2 N/ A NORMAL: Negative NITRITE Negative N/ A NORMAL: Negative LEUKOCYTES Negative N/A NORMAL: Negative MICRO RBC 0-2 N/A NORMAL: 0-2 MICRO WBC None Seen N/A NORMAL: 0-2 BACTERIA None Seen N /A NORMAL: None-Trace EPI CELLS 0-5 N/A NORMAL: 0-15 MUCUS Trace N/A NORMAL: None-Small AMORPHOUS None Seen N/A NORMAL: None Seen YEAST None Seen N/A NORMAL: None Seen CRYSTALS None Seen N /A NORMAL: None Seen CAST Hyaline C N/A NORMAL: None Seen URINE CULTURE? NO N/ A CULTURE BLOOD - Collect Date/Time: 11/27/2015 12:05 Test Name Code Test Result Test Units Test Ref Range SOURCE: R F ARM BLOOD N/A Blood Culture, Routine 600-7 Final report N/A Result 1 600-7 Enterococcus faecalis N/A CULTURE BLOOD - Collect Date/Time: 11/27/2015 11:55 Test Name Code Test Result Test Units Test Ref Range SOURCE: L F ARM BLOOD N/A Blood Culture, Routine 600-7 Final report N/A Result 1 600-7 Enterococcus faecalis N/A Active Medications Medication Code Dose Units Frequency Route Modification Start Date/Time Ampicillin 2GM Injection Powder for Solution [id number] 4 GRAM THREE TIMES DAILY IVPB 12/04/2015 15:10 Prescription Detail 4 GRAM IVPB THREE TIMES DAILY Fluticasone Prop 0.05MG/Actuation Nasal [place] 528007 2 [place] AT BEDTIME NASAL 12/04/2015 15:10 Prescription Detail 2 [place] NASAL AT BEDTIME Haloperidol 5MG Oral Tablet 679565 5 MILLIGRAMS DAILY/HS BY MOUTH 12/04/2015 15:10 Prescription Detail TAKE 5 MILLIGRAMS BY MOUTH DAILY/HS Klor-Con M20 20MEQ Oral Tablet, Extended Release 079950 20 MILLIEQUIVALENT TWICE A DAY BY MOUTH 2015 15:10 Prescription Detail TAKE 20 MILLIEQUIVALENT BY MOUTH TWICE A DAY predniSONE 20MG Oral Tablet 990649 20 MILLIGRAMS QD BY MOUTH 12/04/2015 15:10 Prescription Detail TAKE 20 MILLIGRAMS BY MOUTH QD PreserVision Areds Oral Capsule, Liquid Filled [id number] 1 EACH DAILY ORAL 12/04/2015 15:10 Prescription Detail 1 EACH ORAL DAILY Sodium Chloride 0.9% Injection Solution 709943 10 MILLILITER NEEDED IV PUSH 12/04/2015 15:10 Prescription Detail 10 MILLILITER IV PUSH NEEDED Sodium Chloride 0.9% Irrigation Solution 301138 Liter THREE TIMES DAILY INTRAVENOUS 12/04/2015 15: 10 Prescription Detail Liter INTRAVENOUS THREE TIMES DAILY Lasix 40MG Oral Tablet 045323 40 MILLIGRAMS DAILY ORAL 10/14/2015 12:24 Prescription Detail 40 MILLIGRAMS ORAL DAILY Norvasc 5MG Oral Tablet 136353 5 MILLIGRAMS AT BEDTIME ORAL 10/14/2015 12:24 Prescription Detail 5 MILLIGRAMS ORAL AT BEDTIME Colace 100MG Oral Capsule, Liquid Filled 4819533 100 MILLIGRAMS bid BY MOUTH 06/25/2015 10:30 Prescription Detail TAKE 100 MILLIGRAMS BY MOUTH bid Lopressor 50MG Oral Tablet 298825 50 MILLIGRAMS TWICE A DAY BY MOUTH 06/25/2015 10:30 Prescription Detail TAKE 50 MILLIGRAMS BY MOUTH TWICE A DAY Tums Regular Strength 500MG Oral Tablet, Chewable 164465 1282 MILLIGRAMS PRN QID BY MOUTH 06/25/2015 10:30 Prescription Detail TAKE 1000 MILLIGRAMS BY MOUTH PRN QID Aspirin 81MG Oral Tablet 062592 81 MILLIGRAMS DAILY ORAL 06/25/2015 10:29 Prescription Detail 81 MILLIGRAMS ORAL DAILY Digoxin 0.125MG Oral Tablet 127824 0.125 MILLIGRAMS DAILY ORAL 06/25/2015 10:29 Prescription Detail 0.125 MILLIGRAMS ORAL DAILY Mapap 325MG Oral Tablet 203125 325 MILLIGRAMS PRN Q6H BY MOUTH 06/25/2015 10:29 Prescription Detail TAKE 325 MILLIGRAMS BY MOUTH PRN Q6H Milk Of Magnesia 1200MG/15ML Oral Suspension [id number] 1 EACH NEEDED ORAL 06/25/2015 10:29 Prescription Detail 1 EACH ORAL NEEDED [employer] Vitamin D3 5000IU Oral Tablet [id number] INTERNATIONAL UNITS DAILY ORAL 2014 10:29 Prescription Detail 5000 INTERNATIONAL UNITS ORAL DAILY Pantoprazole Sodium 40MG Oral Tablet, Enteric Coated [id number] 40 MILLIGRAMS DAILY ORAL 06/25/2015 10:29 Prescription Detail 40 MILLIGRAMS ORAL DAILY Pravastatin 40MG Oral Tablet [id number] 40 MILLIGRAMS DAILY ORAL 06/25/2015 10:29 Prescription Detail 40 MILLIGRAMS ORAL DAILY Xarelto 20MG Oral Tablet [id number] 20 MILLIGRAMS QD ORAL 06/25/2015 10:29 Prescription Detail 20 MILLIGRAMS ORAL QD ZyrTEC 10MG Oral Tablet [id number] 10 MILLIGRAMS NEEDED ORAL 06/25/2015 10:29 Prescription Detail 10 MILLIGRAMS ORAL NEEDED Medications Administered During Visit Unknown or Not Available. Encounters Encounter Diagnosis Diagnosis Code Start Date Fever, unspecified R509 11/27/2015 Social History Smoking Status Code Start Date End Date Former smoker [id number] Patient Decision Aids Unknown or Not Available. Discharge Instructions You were admitted to [facility] on 11/27/2015 with a principal diagnosis of Fever, unspecified. You had the following tests done: SOURCE: Blood Culture, Routine Result 1 SOURCE: Blood Culture, Routine Result 1 You were discharged from [facility] on 11/27/2015. Should you have any questions prior to [...]
--- OUTSIDE RECORDS SUMMARY | 2017-02-03 17:42 | XMS REPORT | CCD ---
Author Author SCOTT BOYKIN Organization Unknown Address [address], [place] [id number] Phone 0 Care Team Providers Care Conservation Biology Professor Name Role Phone JAKE MCCRAY Attending Physician 0 F., [place] Nurse Assisstant 0 C., N Nurse Assisstant 0 P., L Nurse Assisstant 0 T., A Nurse Assisstant 0 W., S Nurse Assisstant 0 G., W Nurse Assisstant 0 M., R Nurse Assisstant 0 Vital Signs Vital Sign Value Unit Date/Time Recent/Initial? BP Systolic 119 mmHg 10/09/2015 17:15 Initial VS BP Diastolic 61 mmHg 10/09/2015 17:15 Initial VS Respiratory Rate 14 bpm 10/09/2015 17:15 Initial VS Heart Rate 60 bpm 17:15 Initial VS O2 % BldC Oximetry 96 % 10/09/2015 17:15 Initial VS Body Temperature 98.7 degrees 10/09/2015 17:15 Initial VS Weight Measured 189.31 lbs 10/09/2015 18:51 Initial VS Height 72 in 2014 18:51 Initial VS BMI (Body Mass Index) 25.67 kg/m^2 10/09/2015 18:51 Initial VS BSA (Body Surface Area) 2.09 m^2 10/09/2015 18:51 Initial VS BP Systolic 147 mmHg 10/15/2015 07:43 Most Recent VS BP Diastolic 80 mmHg 10/15/2015 07:43 Most Recent VS Respiratory Rate 16 bpm 10/15/2015 07:43 Most Recent VS Heart Rate 67 bpm 07:43 Most Recent VS O2 % BldC Oximetry 96 % 10/15/2015 07:43 Most Recent VS Body Temperature 97.4 degrees 10/15/2015 07:43 Most Recent VS Allergies Allergy Code Allergy Type Reaction Status No Known Drug Allergies 0 No known drug allergies Active Procedures Procedure Code Procedure Type Date CHEST [id number] 10/09/2015 History of Immunizations Unknown or Not Available. Problems Unknown or Not Available. Results BASIC METABOLIC - Collect Date/Time: 10/14/2015 07:20 Test Name Code Test Result Test Units Test Ref Range GLUCOSE 95 mg/dL L=70 H=110 BUN 20 mg/dL L=7 H=18 CREATININE 1.50 mg/ dL L=0.60 H=1.30 AGE 85 YEARS GFR 47.4 SODIUM 139 mmol/L L=136 H=145 POTASSIUM 3.9 mmol/ L L=3.5 H=5.1 CHLORIDE 103 mmol/L L=98 H=107 CO2 27 mmol/L L=21 H=32 CALCIUM 8.6 mg/dL L=8.5 H=10.1 BASIC METABOLIC - Collect Date/Time: 10/12/2015 10:35 Test Name Code Test Result Test Units Test Ref Range GLUCOSE 208 mg/dL L=70 H=110 BUN 25 mg/dL L=7 H=18 CREATININE 1.50 mg/ dL L=0.60 H=1.30 AGE 85 YEARS GFR 47.4 SODIUM 138 mmol/L L=136 H=145 POTASSIUM 3.4 mmol/ L L=3.5 H=5.1 CHLORIDE 101 mmol/L L=98 H=107 CO2 25 mmol/L L=21 H=32 CALCIUM 8.8 mg/dL L=8.5 H=10.1 CBC (HEMOGRAM ONLY) - Collect Date/Time: 10/14/2015 07:20 Test Name Code Test Result Test Units Test Ref Range WBC 9.0 x10^3 L=4.8 H=10.8 RBC 3.37 x10^6 L=4.70 H=6.10 HEMOGLOBIN 10.4 g/ dL L=14.0 H=18.0 HEMATOCRIT 31.5 % L=42.0 H=52.0 MCV 93 fL L=80 H=100 MCH 30.8 pg L=27.0 H=33.0 MCHC 33.0 g/dL L=33.0 H=37.0 RDW 14.1 % L=11.5 H=14.5 PLATELETS 217 x10^3 L=150 H=450 MPV 8.2 fL L=7.8 H=11.0 CBC W/ DIFF - Collect Date/Time: 10/12/2015 10:35 Test Name Code Test Result Test Units Test Ref Range WBC 10.5 x10^3 L=4.8 H=10.8 RBC 3.64 x10^6 L=4.70 H=6.10 HEMOGLOBIN 11.0 g/ dL L=14.0 H=18.0 HEMATOCRIT 34.2 % L=42.0 H=52.0 MCV 94 fL L=80 H=100 MCH 30.4 pg L=27.0 H=33.0 MCHC 32.3 g/dL L=33.0 H=37.0 RDW 14.1 % L=11.5 H=14.5 PLATELETS 268 x10^3 L=150 H=450 MPV 9.1 fL L=7.8 H=11.0 NEUTROPHILS 73.3 % L=40.0 H=80.0 LYMPHOCYTES 17.4 % L=20.0 H=45.0 MONOCYTES 6.6 % L=0.0 H=10.0 EOSINOPHILS 2.7 % L=0.0 H=5.0 BASOPHILS 0.0 % L=0.0 H=2.0 REFLEX MAN DIFF NO N /A UA AUTO W/ MICRO - Collect Date/Time: 10/10/2015 01:00 Test Name Code Test Result Test Units Test Ref Range COLOR Yellow N/A NORMAL: Yellow APPEARANCE Clear N/ A NORMAL: Clear GLUCOSE Negative N/ A NORMAL: Negative BILIRUBIN Negative N /A NORMAL: Negative KETONE Negative N/A NORMAL: Negative SPEC GRAVITY 1.015 N /A NORMAL: 1.005-1.030 BLOOD Negative N/A NORMAL: Negative PROTEIN Negative N/ A NORMAL: Negative PH 7.0 N/A NORMAL: 5.0-8.0 UROBILINOGEN 0.2 N/ A NORMAL: Negative NITRITE Negative N/ A NORMAL: Negative LEUKOCYTES Negative N/A NORMAL: Negative MICRO RBC 0-2 N/A NORMAL: 0-2 MICRO WBC 0-2 N/A NORMAL: 0-2 BACTERIA 1+ N/A NORMAL: None-Trace EPI CELLS 5-10 N/A NORMAL: 0-15 MUCUS Trace N/A NORMAL: None-Small AMORPHOUS None Seen N/A NORMAL: None Seen YEAST Trace N/A NORMAL: None Seen CRYSTALS None Seen N /A NORMAL: None Seen CAST None Seen N/A NORMAL: None Seen URINE CULTURE? YES N /A CULTURE URINE - Collect Date/Time: 10/10/2015 01:00 Test Name Code Test Result Test Units Test Ref Range SPEC SOURCE: RANDOM N/A Urine Culture, Routine [id number] Final report N/A Active Medications Medication Code Dose Units Frequency Route Modification Start Date/Time Klgabrielle-Con M20 20MEQ Oral Tablet, Extended Release [id number] 40 MILLIEQUIVALENT TWICE A DAY BY MOUTH 2014 12:24 Prescription Detail TAKE 40 MILLIEQUIVALENT BY MOUTH TWICE A DAY Lasix 40MG Oral Tablet [id number] 40 MILLIGRAMS DAILY ORAL 10/14/2015 12:24 Prescription Detail 40 MILLIGRAMS ORAL DAILY Norvasc 5MG Oral Tablet [id number] 5 MILLIGRAMS AT BEDTIME ORAL 10/14/2015 12:24 Prescription Detail 5 MILLIGRAMS ORAL AT BEDTIME predniSONE 10MG Oral Tablet [id number] 10 MILLIGRAMS DAILY ORAL 10/14/2015 12:24 Prescription Detail 10 MILLIGRAMS ORAL DAILY Colace 100MG Oral Capsule, Liquid Filled [id number] 100 MILLIGRAMS bid BY MOUTH 06/25/2015 10:30 Prescription Detail TAKE 100 MILLIGRAMS BY MOUTH bid Lopressor 50MG Oral Tablet [id number] 50 MILLIGRAMS TWICE A DAY BY MOUTH 06/25/2015 10:30 Prescription Detail TAKE 50 MILLIGRAMS BY MOUTH TWICE A DAY Tums Regular Strength 500MG Oral Tablet, Chewable [id number] 6228 MILLIGRAMS PRN QID BY MOUTH 06/25/2015 10:30 Prescription Detail TAKE 1000 MILLIGRAMS BY MOUTH PRN QID Aspirin 81MG Oral Tablet [id number] 81 MILLIGRAMS DAILY ORAL 06/25/2015 10:29 Prescription Detail 81 MILLIGRAMS ORAL DAILY Digoxin 0.125MG Oral Tablet [id number] 0.125 MILLIGRAMS DAILY ORAL 06/25/2015 10:29 Prescription Detail 0.125 MILLIGRAMS ORAL DAILY Mapap 325MG Oral Tablet [id number] 325 MILLIGRAMS PRN Q6H BY MOUTH 06/25/2015 10:29 Prescription Detail TAKE 325 MILLIGRAMS BY MOUTH PRN Q6H Milk Of Magnesia 1200MG/15ML Oral Suspension [id number] 1 EACH NEEDED ORAL 06/25/2015 10:29 Prescription Detail 1 EACH ORAL NEEDED Nature's Blend Vitamin D3 5000IU Oral Tablet [id number] 3827 INTERNATIONAL UNITS DAILY ORAL 2014 10:29 Prescription Detail 5000 INTERNATIONAL UNITS ORAL DAILY Pantoprazole Sodium 40MG Oral Tablet, Enteric Coated [id number] 40 MILLIGRAMS DAILY ORAL 06/25/2015 10:29 Prescription Detail 40 MILLIGRAMS ORAL DAILY Pravastatin 40MG Oral Tablet [id number] 40 MILLIGRAMS DAILY ORAL 06/25/2015 10:29 Prescription Detail 40 MILLIGRAMS ORAL DAILY Xarelto 20MG Oral Tablet [id number] 20 MILLIGRAMS QD ORAL 06/25/2015 10:29 Prescription Detail 20 MILLIGRAMS ORAL QD ZyrTEC 10MG Oral Tablet [id number] 10 MILLIGRAMS NEEDED ORAL 06/25/2015 10:29 Prescription Detail 10 MILLIGRAMS ORAL NEEDED Medications Administered During Visit Medication Dose Units Frequency Route Date/Time of Last Dose PREDNISONE (DELTASONE) TAB : 10MG 10 MG DAILY PO 10/15/2015 07: 30 FUROSEMIDE (LASIX)TAB:20 MG 40 MG QD PO 10/15/2015 07:30 AMLODIPINE (NORVASC) TAB : 5MG 5 MG QD PO 10/15/2015 07:30 DIGOXIN (LANOXIN) TAB :0.125MG 0.125 MG DAILY ORAL 10/15/2015 07:30 ASPIRIN EC TAB : 81 MG 81 MG QD ORAL 10/15/2015 07:30 NF-Natures Blend Vitamin D3 Oral Tab 500 5000 IU DAILY ORAL 07:49 PANTOPRAZOLE (PROTONIX) TAB : 40MG 40 MG DAILY ORAL 10/15/2015 07:30 XARELTO TAB: 20 MG 20 MG QD ORAL 10/15/2015 07:30 SALINE FLUSH 10ML SYRINGE : IV 10 ML PRN IV PUSH 10/12/2015 16: 30 LOPRESSOR (METOPROLOL) 50MG: TAB 50 MG QD PO 10/15/2015 07:30 LIPITOR (ATORVASTATIN) TAB: 20 MG 10 MG QD PO 10/14/2015 21:00 K (KLOR CON) TAB : 20 MEQ 20 MEQ BID PO 10/12/2015 08:03 DOCUSATE (COLACE) CAP : 100MG 100 MG BID PO 10/11/2015 07:45 AMPICILLIN 4 GM/ 250 ML NS IV 4 GRAMS Q8H IVPB 10/11/2015 09: 13 VITAMIN D CAP: 5000 UNITS 5000 UNITS DAILY PO 10/15/2015 07:30 DOCUSATE (COLACE) CAP : 100MG 100 MG bid PO 10/15/2015 07:30 NF-AMPICILLIN INJ POWDER FOR SOLUTION 1G 2 GM Q6 IV 10/11/2015 21:00 NF-AMPICILLIN INJ PWD FOR SOLN 2GM 2 GM Q6H IV 10/12/2015 03: 24 NS 0.9% 250ML 250 ML Q6H IV 10/12/2015 03:25 K (KLOR CON) TAB : 20 MEQ 40 MEQ BID PO 10/15/2015 07:30 AMPICILLIN (AMPICILLIN) INJ : 1GM 2 GM X1 IV 10/12/2015 09:30 AMPICILLIN 4 GM/ 250 ML NS IV 4 GRAMS Q8H IV 10/14/2015 20:17 K (KLOR CON) TAB : 20 MEQ 20 MEQ X1 PO 10/12/2015 12:00 Encounters Encounter Diagnosis Diagnosis Code Start Date Sepsis due to Enterococcus [id number] 2014 Social History Smoking Status Code Start Date End Date Former smoker [id number] Patient Decision Aids Patient Decision Aid Patient Portal Access Discharge Instructions You were admitted to [facility] on 10/09/2015 with a principal diagnosis of Sepsis due to Enterococcus. You had the following tests done: SPEC SOURCE: Urine Culture, Routine You were discharged from [facility] on 10/15/2015. Should you have any questions prior to discharge, please contact a member of your healthcare team. If you have left the hospital and have any questions, please contact your primary care physician. DIET:CARDIAC DIET. Discharge To:Home. Mode of Transportation:Wheelchair. Accompanied By: Spouse/SO. Mental Status:Alert & oriented, Calm. Bowel/Bladder Status:No problem. Activities: Gradually resume normal activities, Use walker when ambulating. Follow up Appointment:Call to make an appointment with Dr. Lynn for 10/24 for repeat bloodculture. General Instructions/Notify Physician:Return sooner for fever 100.4 or higher Chief Complaint and Reason For Visit Chief Complaint Date of Onset INFECTIVE ENDOCARDITIS/PNEUMONIA/CHF Function Status Unknown or Not Available. Plan of Care Unknown or Not Available. Referral/Transition of Care Unknown or Not Available.
--- OUTSIDE RECORDS SUMMARY | 2017-02-03 17:43 | XMS REPORT | CCD ---
Author Author SCOTT BOYKIN Organization Unknown Address [address], [place] [id number] Phone 0 Care Team Providers Care Quilting Machine Helper Name Role Phone JAKE MCCRAY Attending Physician 0 Vital Signs Unknown or Not Available. Allergies Allergy Code Allergy Type Reaction Status No Known Drug Allergies 0 No known drug allergies Active Procedures Unknown or Not Available. History of Immunizations Unknown or Not Available. Problems Unknown or Not Available. Results BASIC METABOLIC - Collect Date/Time: 10/23/2015 09:05 Test Name Code Test Result Test Units Test Ref Range GLUCOSE 128 mg/dL L=70 H=110 BUN 32 mg/dL L=7 H=18 CREATININE 1.70 mg/ dL L=0.60 H=1.30 AGE 85 YEARS GFR 41.0 SODIUM 142 mmol/L L=136 H=145 POTASSIUM 4.1 mmol/ L L=3.5 H=5.1 CHLORIDE 105 mmol/L L=98 H=107 CO2 26 mmol/L L=21 H=32 CALCIUM 9.1 mg/dL L=8.5 H=10.1 C-REACTIVE PROTEIN - Collect Date/Time: 10/23/2015 09:05 Test Name Code Test Result Test Units Test Ref Range CRP 3 mg/L L=0 H=5 LACTIC ACID - Collect Date/Time: 10/23/2015 09:05 Test Name Code Test Result Test Units Test Ref Range LACTIC ACID 3.8 mmol /L L=0.4 H=2.0 CBC W/ DIFF - Collect Date/Time: 10/23/2015 09:05 Test Name Code Test Result Test Units Test Ref Range WBC 10.2 x10^3 L=4.8 H=10.8 RBC 3.90 x10^6 L=4.70 H=6.10 HEMOGLOBIN 12.0 g/ dL L=14.0 H=18.0 HEMATOCRIT 36.1 % L=42.0 H=52.0 MCV 93 fL L=80 H=100 MCH 30.9 pg L=27.0 H=33.0 MCHC 33.3 g/dL L=33.0 H=37.0 RDW 14.7 % L=11.5 H=14.5 PLATELETS 170 x10^3 L=150 H=450 MPV 10.0 fL L=7.8 H=11.0 NEUTROPHILS 59.8 % L=40.0 H=80.0 LYMPHOCYTES 26.1 % L=20.0 H=45.0 MONOCYTES 8.4 % L=0.0 H=10.0 EOSINOPHILS 5.3 % L=0.0 H=5.0 BASOPHILS 0.4 % L=0.0 H=2.0 REFLEX MAN DIFF NO N /A SED RATE AUTO - Collect Date/Time: 10/23/2015 09:05 Test Name Code Test Result Test Units Test Ref Range SED RATE 42 mm/HR L=0 H=10 Active Medications Medication Code Dose Units Frequency Route Modification Start Date/Time Remigio-Regino M20 20MEQ Oral Tablet, Extended Release [id number] 40 MILLIEQUIVALENT TWICE A DAY BY MOUTH 2014 12:24 Prescription Detail TAKE 40 MILLIEQUIVALENT BY MOUTH TWICE A DAY Lasix 40MG Oral Tablet [id number] 40 MILLIGRAMS DAILY ORAL 10/14/2015 12:24 Prescription Detail 40 MILLIGRAMS ORAL DAILY Norvasc 5MG Oral Tablet [id number] 5 MILLIGRAMS AT BEDTIME ORAL 10/14/2015 12:24 Prescription Detail 5 MILLIGRAMS ORAL AT BEDTIME predniSONE 10MG Oral Tablet [id number] 10 MILLIGRAMS DAILY ORAL 10/14/2015 12:24 Prescription Detail 10 MILLIGRAMS ORAL DAILY Colace 100MG Oral Capsule, Liquid Filled [id number] 100 MILLIGRAMS bid BY MOUTH 06/25/2015 10:30 Prescription Detail TAKE 100 MILLIGRAMS BY MOUTH bid Lopressor 50MG Oral Tablet [id number] 50 MILLIGRAMS TWICE A DAY BY MOUTH 06/25/2015 10:30 Prescription Detail TAKE 50 MILLIGRAMS BY MOUTH TWICE A DAY Tums Regular Strength 500MG Oral Tablet, Chewable [id number] 2688 MILLIGRAMS PRN QID BY MOUTH 06/25/2015 10:30 Prescription Detail TAKE 1000 MILLIGRAMS BY MOUTH PRN QID Aspirin 81MG Oral Tablet [id number] 81 MILLIGRAMS DAILY ORAL 06/25/2015 10:29 Prescription Detail 81 MILLIGRAMS ORAL DAILY Digoxin 0.125MG Oral Tablet 232376 0.125 MILLIGRAMS DAILY ORAL 06/25/2015 10:29 Prescription Detail 0.125 MILLIGRAMS ORAL DAILY Mapap 325MG Oral Tablet [id number] 325 MILLIGRAMS PRN Q6H BY MOUTH 06/25/2015 10:29 Prescription Detail TAKE 325 MILLIGRAMS BY MOUTH PRN Q6H Milk Of Magnesia 1200MG/15ML Oral Suspension [id number] 1 EACH NEEDED ORAL 06/25/2015 10:29 Prescription Detail 1 EACH ORAL NEEDED Nature's Blend Vitamin D3 5000IU Oral Tablet [id number] 7609 INTERNATIONAL UNITS DAILY ORAL 2014 10:29 Prescription Detail 5000 INTERNATIONAL UNITS ORAL DAILY Pantoprazole Sodium 40MG Oral Tablet, Enteric Coated [id number] 40 MILLIGRAMS DAILY ORAL 06/25/2015 10:29 Prescription Detail 40 MILLIGRAMS ORAL DAILY Pravastatin 40MG Oral Tablet [id number] 40 MILLIGRAMS DAILY ORAL 06/25/2015 10:29 Prescription Detail 40 MILLIGRAMS ORAL DAILY Xarelto 20MG Oral Tablet [id number] 20 MILLIGRAMS QD ORAL 06/25/2015 10:29 Prescription Detail 20 MILLIGRAMS ORAL QD ZyrTEC 10MG Oral Tablet [id number] 10 MILLIGRAMS NEEDED ORAL 06/25/2015 10:29 Prescription Detail 10 MILLIGRAMS ORAL NEEDED Medications Administered During Visit Unknown or Not Available. Encounters Unknown or Not Available. Social History Smoking Status Code Start Date End Date Former smoker [id number] Patient Decision Aids Unknown or Not Available. Discharge Instructions You were admitted to [facility] on 10/23/2015. You were discharged from [facility] on 10/23/2015. Should you have any questions prior to [...]
--- OUTSIDE RECORDS SUMMARY | 2017-02-03 17:43 | XMS REPORT | CCD ---
Author Author SERGIO TELLEZ Organization Unknown Address [address], [place] [address] Phone 0 Care Team Providers Care Box Lining Machine Feeder Name Role Phone TORSTEN OLIVARES Attending Physician 0 Vital Signs Unknown or Not Available. Allergies Allergy Code Allergy Type Reaction Status No Known Drug Allergies 0 No known drug allergies Active Procedures Unknown or Not Available. History of Immunizations Unknown or Not Available. Problems Unknown or Not Available. Results OCCULT BLOOD STOOL IMMUNOASSAY - Collect Date/Time: 02/11/2015 08:00 Test Name Code Test Result Test Units Test Ref Range OCC BLOOD IM NEGATIVE N/A NORMAL: NEGATIVE Active Medications Unknown or Not Available. Medications Administered During Visit Unknown or Not Available. Encounters Unknown or Not Available. Social History Smoking Status Code Start Date End Date Former smoker [id number] Patient Decision Aids Unknown or Not Available. Discharge Instructions You were admitted to [facility] on 02/11/2015. You were discharged from [facility] on 02/11/2015. Should you have any questions prior to [...]
--- OUTSIDE RECORDS SUMMARY | 2017-02-03 17:43 | XMS REPORT | CCD ---
Author Author SERGIO TELLEZ Organization Unknown Address [address], [place] [id number] Phone 0 Care Team Providers Care Health Equipment Servicer Name Role Phone ZOILA CUBA Attending Physician [phone] Vital Signs Unknown or Not Available. Allergies Allergy Code Allergy Type Reaction Status No Known Drug Allergies 0 No known drug allergies Active Procedures Unknown or Not Available. History of Immunizations Unknown or Not Available. Problems Unknown or Not Available. Results Unknown or Not Available. Active Medications Unknown or Not Available. Medications Administered During Visit Unknown or Not Available. Encounters Unknown or Not Available. Social History Smoking Status Code Start Date End Date Former smoker [id number] Patient Decision Aids Unknown or Not Available. Discharge Instructions You were admitted to [facility] on 01/01/2015. You were discharged from [facility] on 01/01/2015. Should you have any questions prior to discharge, please contact a member of your healthcare team. If you have left the hospital and have any questions, please contact your primary care physician. Chief Complaint and Reason For Visit Chief Complaint Date of Onset US CAROTID BILAT DUPLEX Function Status Unknown or Not Available. Plan of Care Unknown or Not Available. Referral/Transition of Care Unknown or Not Available.
--- OUTSIDE RECORDS SUMMARY | 2017-02-03 17:43 | XMS REPORT | CCD ---
Author Author MARII BOYKIN Organization Unknown Address [address], [place] [id number] Phone 0 Care Team Providers Care [employer] Name Role Phone JAKE MCCRAY Attending Physician 0 F., [place] Nurse Assisstant 0 C., N Nurse Assisstant 0 P., L Nurse Assisstant 0 H., A Nurse Assisstant 0 T., A Nurse Assisstant 0 W., S Nurse Assisstant 0 G., W Nurse Assisstant 0 M., R Nurse Assisstant 0 N., ELDON Nurse Assisstant 0 Vital Signs Vital Sign Value Unit Date/Time Recent/Initial? Weight Measured 189.03 lbs 12/14/2015 17:06 Initial VS Height 72 in 2015 17:06 Initial VS BMI (Body Mass Index) 25.67 kg/m^2 12/14/2015 17:06 Initial VS BSA (Body Surface Area) 2.09 m^2 12/14/2015 17:06 Initial VS BP Systolic 140 mmHg 12/14/2015 17:37 Initial VS BP Diastolic 70 mmHg 12/14/2015 17:37 Initial VS Respiratory Rate 16 bpm 12/14/2015 17:37 Initial VS Heart Rate 63 bpm 17:37 Initial VS O2 % BldC Oximetry 96 % 12/14/2015 17:37 Initial VS Body Temperature 98.3 degrees 12/14/2015 17:37 Initial VS Weight Measured 201.5 lbs 01/04/2016 06:05 Most Recent VS Height 72 in 2015 06:05 Most Recent VS BMI (Body Mass Index) 27.33 kg/m^2 01/04/2016 06:05 Most Recent VS BSA (Body Surface Area) 2.15 m^2 01/04/2016 06:05 Most Recent VS BP Systolic 153 mmHg 01/04/2016 08:22 Most Recent VS BP Diastolic 78 mmHg 01/04/2016 08:22 Most Recent VS Respiratory Rate 16 bpm 01/04/2016 08:22 Most Recent VS Heart Rate 63 bpm 08:22 Most Recent VS O2 % BldC Oximetry 96 % 01/04/2016 08:22 Most Recent VS Body Temperature 98.5 degrees 01/04/2016 08:22 Most Recent VS Allergies Allergy Code Allergy Type Reaction Status No Known Drug Allergies 0 No known drug allergies Active Procedures Unknown or Not Available. History of Immunizations Unknown or Not Available. Problems Unknown or Not Available. Results BASIC METABOLIC - Collect Date/Time: 12/31/2015 07:30 Test Name Code Test Result Test Units Test Ref Range GLUCOSE 106 mg/dL L=70 H=110 BUN 22 mg/dL L=7 H=18 CREATININE 1.30 mg/ dL L=0.60 H=1.30 AGE 85 YEARS GFR 55.9 SODIUM 142 mmol/L L=136 H=145 POTASSIUM 3.6 mmol/ L L=3.5 H=5.1 CHLORIDE 107 mmol/L L=98 H=107 CO2 26 mmol/L L=21 H=32 CALCIUM 8.5 mg/dL L=8.5 H=10.1 COMP METABOLIC - Collect Date/Time: 12/15/2015 07:30 Test Name Code Test Result Test Units Test Ref Range GLUCOSE 107 mg/dL L=70 H=110 BUN 24 mg/dL L=7 H=18 CREATININE 1.40 mg/ dL L=0.60 H=1.30 AGE 85 YEARS GFR 51.3 SODIUM 138 mmol/L L=136 H=145 POTASSIUM 3.8 mmol/ L L=3.5 H=5.1 CHLORIDE 101 mmol/L L=98 H=107 CO2 27 mmol/L L=21 H=32 CALCIUM 9.1 mg/dL L=8.5 H=10.1 AST 16 U/L L=15 H=37 ALT 19 U/L L=12 H=78 ALKALINE PHOS 62 U/ L L=46 H=116 TOTAL PROTEIN 7.1 g/ dL L=6.4 H=8.2 ALBUMIN 3.0 g/dL L=3.4 H=5.0 TOTAL BILI 0.20 mg/ dL L=0.00 H=1.00 PRO B-TYPE NATRIURETIC PEPTIDE - Collect Date/Time: 12/31/2015 07:30 Test Name Code Test Result Test Units Test Ref Range PBNP 688 pg/mL L=0 H=450 URIC ACID - Collect Date/Time: 12/22/2015 10:35 Test Name Code Test Result Test Units Test Ref Range URIC ACID 3.7 mg/dL L=2.6 H=7.2 CBC (HEMOGRAM ONLY) - Collect Date/Time: 01/01/2016 07:35 Test Name Code Test Result Test Units Test Ref Range WBC 8.8 x10^3 L=4.8 H=10.8 RBC 2.42 x10^6 L=4.70 H=6.10 HEMOGLOBIN 7.7 g/dL L=14.0 H=18.0 HEMATOCRIT 23.0 % L=42.0 H=52.0 MCV 95 fL L=80 H=100 MCH 31.8 pg L=27.0 H=33.0 MCHC 33.4 g/dL L=33.0 H=37.0 RDW 17.8 % L=11.5 H=14.5 PLATELETS 134 x10^3 L=150 H=450 MPV 9.0 fL L=7.8 H=11.0 CBC (HEMOGRAM ONLY) - Collect Date/Time: 12/31/2015 07:30 Test Name Code Test Result Test Units Test Ref Range WBC 8.7 x10^3 L=4.8 H=10.8 RBC 2.59 x10^6 L=4.70 H=6.10 HEMOGLOBIN 7.9 g/dL L=14.0 H=18.0 HEMATOCRIT 24.6 % L=42.0 H=52.0 MCV 95 fL L=80 H=100 MCH 30.4 pg L=27.0 H=33.0 MCHC 32.0 g/dL L=33.0 H=37.0 RDW 17.2 % L=11.5 H=14.5 PLATELETS 138 x10^3 L=150 H=450 MPV 9.6 fL L=7.8 H=11.0 CBC W/ DIFF - Collect Date/Time: 01/04/2016 07:20 Test Name Code Test Result Test Units Test Ref Range WBC 9.7 x10^3 L=4.8 H=10.8 RBC 3.32 x10^6 L=4.70 H=6.10 HEMOGLOBIN 10.4 g/ dL L=14.0 H=18.0 HEMATOCRIT 31.2 % L=42.0 H=52.0 MCV 94 fL L=80 H=100 MCH 31.3 pg L=27.0 H=33.0 MCHC 33.3 g/dL L=33.0 H=37.0 RDW 17.9 % L=11.5 H=14.5 PLATELETS 157 x10^3 L=150 H=450 MPV 10.3 fL L=7.8 H=11.0 NEUTROPHILS 64.1 % L=40.0 H=80.0 LYMPHOCYTES 21.7 % L=20.0 H=45.0 MONOCYTES 8.6 % L=0.0 H=10.0 EOSINOPHILS 5.5 % L=0.0 H=5.0 BASOPHILS 0.1 % L=0.0 H=2.0 REFLEX MAN DIFF NO N /A CBC W/ DIFF - Collect Date/Time: 12/25/2015 07:45 Test Name Code Test Result Test Units Test Ref Range WBC 9.6 x10^3 L=4.8 H=10.8 RBC 2.89 x10^6 L=4.70 H=6.10 HEMOGLOBIN 8.9 g/dL L=14.0 H=18.0 HEMATOCRIT 26.8 % L=42.0 H=52.0 MCV 93 fL L=80 H=100 MCH 30.7 pg L=27.0 H=33.0 MCHC 33.0 g/dL L=33.0 H=37.0 RDW 16.1 % L=11.5 H=14.5 PLATELETS 144 x10^3 L=150 H=450 MPV 8.9 fL L=7.8 H=11.0 NEUTROPHILS 62.4 % L=40.0 H=80.0 LYMPHOCYTES 23.4 % L=20.0 H=45.0 MONOCYTES 7.7 % L=0.0 H=10.0 EOSINOPHILS 6.4 % L=0.0 H=5.0 BASOPHILS 0.1 % L=0.0 H=2.0 REFLEX MAN DIFF NO N /A CBC W/ DIFF - Collect Date/Time: 12/21/2015 07:00 Test Name Code Test Result Test Units Test Ref Range WBC 9.2 x10^3 L=4.8 H=10.8 RBC 2.93 x10^6 L=4.70 H=6.10 HEMOGLOBIN 8.7 g/dL L=14.0 H=18.0 HEMATOCRIT 27.2 % L=42.0 H=52.0 MCV 93 fL L=80 H=100 MCH 29.7 pg L=27.0 H=33.0 MCHC 32.1 g/dL L=33.0 H=37.0 RDW 15.9 % L=11.5 H=14.5 PLATELETS 152 x10^3 L=150 H=450 MPV 9.5 fL L=7.8 H=11.0 NEUTROPHILS 61.2 % L=40.0 H=80.0 LYMPHOCYTES 24.2 % L=20.0 H=45.0 MONOCYTES 7.4 % L=0.0 H=10.0 EOSINOPHILS 7.1 % L=0.0 H=5.0 BASOPHILS 0.1 % L=0.0 H=2.0 REFLEX MAN DIFF NO N /A UA AUTO W/ MICRO - Collect Date/Time: 12/15/2015 06:10 Test Name Code Test Result Test Units Test Ref Range COLOR Yellow N/A NORMAL: Yellow APPEARANCE Clear N/ A NORMAL: Clear GLUCOSE Negative N/ A NORMAL: Negative BILIRUBIN Negative N /A NORMAL: Negative KETONE Negative N/A NORMAL: Negative SPEC GRAVITY 1.015 N /A NORMAL: 1.005-1.030 BLOOD Negative N/A NORMAL: Negative PROTEIN Negative N/ A NORMAL: Negative PH 6.5 N/A NORMAL: 5.0-8.0 UROBILINOGEN 0.2 N/ A NORMAL: Negative NITRITE Negative N/ A NORMAL: Negative LEUKOCYTES Negative N/A NORMAL: Negative MICRO RBC None Seen N/A NORMAL: 0-2 MICRO WBC 0-2 N/A NORMAL: 0-2 BACTERIA None Seen N /A NORMAL: None-Trace EPI CELLS 0-5 N/A NORMAL: 0-15 MUCUS None Seen N/A NORMAL: None-Small AMORPHOUS None Seen N/A NORMAL: None Seen YEAST None Seen N/A NORMAL: None Seen CRYSTALS None Seen N /A NORMAL: None Seen CAST None Seen N/A NORMAL: None Seen URINE CULTURE? NO N/ A BB ABO/RH - Collect Date/Time: 01/01/2016 07:35 Test Name Code Test Result Test Units Test Ref Range ABO/RH A POSITIVE N/ A BB ANTIBODY SCREEN - Collect Date/Time: 01/01/2016 07:35 Test Name Code Test Result Test Units Test Ref Range AB SCREEN NEGATIVE N /A NORMAL: NEGATIVE BB CROSSMATCH IS - Collect Date/Time: 01/01/2016 07:35 Test Name Code Test Result Test Units Test Ref Range ABO/RH A POSITIVE N/ A AB SCREEN NEGATIVE N /A DONOR ABO/Rh A POSITIVE N/A CROSSMATCH COMPATIBLE N/A PREV REACTION NO N/ A BB CROSSMATCH IS - Collect Date/Time: 01/01/2016 07:35 Test Name Code Test Result Test Units Test Ref Range ABO/RH A POSITIVE N/ A AB SCREEN NEGATIVE N /A DONOR ABO/Rh A POSITIVE N/A CROSSMATCH COMPATIBLE N/A PREV REACTION NO N/ A Active Medications Medication Code Dose Units Frequency Route Modification Start Date/Time Docusate Sodium and Senna 50MG-8.6MG Oral Tablet [id number] 1 EACH AT BEDTIME ORAL 12/31/2015 12:54 Prescription Detail 1 EACH ORAL AT BEDTIME Ferrous Sulfate 325MG Oral Tablet [id number] 325 MILLIGRAMS TWICE A DAY ORAL 12/31/2015 12:54 Prescription Detail 325 MILLIGRAMS ORAL TWICE A DAY Klor-Con M20 20MEQ Oral Tablet, Extended Release [id number] 40 MEQ TWICE A DAY ORAL 12/31/2015 12:54 Prescription Detail 40 MEQ ORAL TWICE A DAY Norvasc 10MG Oral Tablet [id number] 10 MILLIGRAMS DAILY ORAL 12/31/2015 12:54 Prescription Detail 10 MILLIGRAMS ORAL DAILY predniSONE 10MG Oral Tablet [id number] 10 MILLIGRAMS DAILY ORAL 12/31/2015 12:54 Prescription Detail 10 MILLIGRAMS ORAL DAILY Fluticasone Prop 0.05MG/Actuation Nasal [place] [id number] 2 [place] AT BEDTIME NASAL 12/04/2015 15:10 Prescription Detail 2 [place] NASAL AT BEDTIME PreserVision Areds Oral Capsule, Liquid Filled [id number] 1 EACH DAILY ORAL 12/04/2015 15:10 Prescription Detail 1 EACH ORAL DAILY Lasix 40MG Oral Tablet [id number] 40 MILLIGRAMS DAILY ORAL 10/14/2015 12:24 Prescription Detail 40 MILLIGRAMS ORAL DAILY Colace 100MG Oral Capsule, Liquid Filled [id number] 100 MILLIGRAMS bid BY MOUTH 06/25/2015 10:30 Prescription Detail TAKE 100 MILLIGRAMS BY MOUTH bid Aspirin 81MG Oral Tablet [id number] 81 MILLIGRAMS DAILY ORAL 06/25/2015 10:29 Prescription Detail 81 MILLIGRAMS ORAL DAILY Digoxin 0.125MG Oral Tablet 108698 0.125 MILLIGRAMS DAILY ORAL 06/25/2015 10:29 Prescription Detail 0.125 MILLIGRAMS ORAL DAILY Nature's Blend Vitamin D3 5000IU Oral Tablet [id number] 1209 INTERNATIONAL UNITS DAILY ORAL 2014 10:29 Prescription Detail 5000 INTERNATIONAL UNITS ORAL DAILY Pantoprazole Sodium 40MG Oral Tablet, Enteric Coated [id number] 40 MILLIGRAMS DAILY ORAL 06/25/2015 10:29 Prescription Detail 40 MILLIGRAMS ORAL DAILY Pravastatin 40MG Oral Tablet [id number] 40 MILLIGRAMS DAILY ORAL 06/25/2015 10:29 Prescription Detail 40 MILLIGRAMS ORAL DAILY Xarelto 20MG Oral Tablet [id number] 20 MILLIGRAMS QD ORAL 06/25/2015 10:29 Prescription Detail 20 MILLIGRAMS ORAL QD ZyrTEC 10MG Oral Tablet [id number] 10 MILLIGRAMS NEEDED ORAL 06/25/2015 10:29 Prescription Detail 10 MILLIGRAMS ORAL NEEDED Medications Administered During Visit Medication Dose Units Frequency Route Date/Time of Last Dose DOCUSATE (COLACE) CAP : 100MG 100 MG bid PO 01/04/2016 08:05 PANTOPRAZOLE (PROTONIX) TAB : 40MG 40 MG DAILY ORAL 01/04/2016 08:05 PREDNISONE (DELTASONE) TAB : 10MG 10 MG DAILY PO 01/04/2016 08: 05 XARELTO TAB: 20 MG 20 MG QD ORAL 01/04/2016 08:05 DIGOXIN (LANOXIN) TAB :0.125MG 0.125 MG DAILY ORAL 01/04/2016 08:05 ASPIRIN EC TAB : 81 MG 81 MG QD ORAL 01/04/2016 08:04 FUROSEMIDE (LASIX)TAB:20 MG 40 MG QD PO 01/04/2016 08:04 AMLODIPINE (NORVASC) TAB : 5MG 10 MG QD PO 01/04/2016 08:04 K (KLOR CON) TAB : 20 MEQ 40 MEQ bid ORAL 01/04/2016 08:04 PRAVASTATIN (PRAVACHOL) TAB : 40MG 40 MG DAILY/HS PO 2015 20:12 SENNOSIDES/DOCU (CAROLYN COLACE) TAB : 1 TAB QD PO 01/04/2016 08 :06 ROCEPHIN IVPB:2GM/100ML 2 GM Q12H IV 01/04/2016 09:49 OCUVITE TAB: 1 TAB QD PO 01/04/2016 08:06 FLONASE (FLUTICASONE)NASAL SPRAY:50 MCG 1 SPRAY DAILY/HS TOPICAL 01/01/2016 20:20 VITAMIN D CAP: 5000 UNITS 5000 UNITS DAILY PO 01/04/2016 08:05 FERROUS SULFATE (FEOSOL) TAB : 325MG 325 MG BID ORAL 01/04/2016 08:05 AMPICILLIN 4 GM/ 250 ML NS IV 4 GM Q8H IVPB 12/21/2015 12:06 AMPICILLIN 4 GM/ 250 ML NS IV 4 GRAMS Q8H IV 01/04/2016 04:08 FUROSEMIDE (LASIX) INJ : 20MG/2ML 20 MG X1 IVP 12/29/2015 10: 37 Encounters Encounter Diagnosis Diagnosis Code Start Date Sepsis, unspecified organism [id number] 2015 Social History Smoking Status Code Start Date End Date Former smoker [id number] Patient Decision Aids Unknown or Not Available. Discharge Instructions You were admitted to [facility] on 12/14/2015 with a principal diagnosis of Sepsis, unspecified organism. You were discharged from [facility] on 01/04/2016. Should you have any questions prior to discharge, please contact a member of your healthcare team. If you have left the hospital and have any questions, please contact your primary care physician. DIET:REGULAR, no added salt Discharge To:Home. Mode of Transportation:Ambulatory. Accompanied By:Spouse Annamaria and Daughter Marii Mental Status:Alert & oriented, Calm. Bowel/Bladder Status:No problem. Medication Instruction:Pt/Family Member:Drug information sheet given, Verbalizes reason/method of taking.Verbalizes who/when to call w/ problems. Education Focus Prior to Discharge: Cardiac, Respiratory, Diet, Medications. Community Resources: Patient/Family:Aware of resources for health care needs. Activities:Gradually resume normal activities. Service Upon Discharge:None. Returned/Dispensed to Patient: Valuables:, Clothing:, Equipment:cane. Continuing Needs Are Met By:Patient, Spouse. Temperature:Afebrile. Pain Status:Not applicable. Skin Integrity: Intact. Pulmonary Status:Lungs clear bilaterally. Elimination:Voiding without difficulty. Immunizations:pt has received both the influenza and pneumo vaccines prior to this admit Chief Complaint and Reason For Visit Chief Complaint Date of Onset IV ANTIBIOTICS Function Status Unknown or Not Available. Plan of Care Unknown or Not Available. Referral/Transition of Care Unknown or Not Available.
--- OUTSIDE RECORDS SUMMARY | 2017-02-03 17:43 | XMS REPORT | Continuity of Care Document ---
Author Author [facility] (formerly [facility]) Address Unknown Phone Unavailable Support Name Relationship Address Phone ALINA MYLES MD Caregiver [address] [place] [address] Unavailable ALINA MYLES MD Caregiver [address] [place] [address] Unavailable JUAN HAZEL "CINDY" Caregiver [address] [place] [address] Unavailable MAYLIN GALICIA Next Of Kin Unknown [phone] Insurance Providers Guarantor Dayanna Galicia Address [address] [place] [address] Email DENIED/NO TO PT [facility] netFactor Federal Policy Number [id number] Subscriber's Name Dayanna Galicia Relationship 18 Self Group Number [id number] Effective Date 15 Payer Medicare Policy Number [id number] Subscriber's Name Dayanna Galicia Relationship 18 Self Effective Date 96 Advance Directives Directive Response Recorded Date/Time Ordered Resuscitation Status Full Code 04/20/16 4:19pm Resuscitation Documents on File No 04/20/16 2:40pm DPOA for Healthcare Only Yes 04/20/16 2:40pm Problems Active Problems Medical Problem Onset Date Status Anemia Unknown Acute Atrial fibrillation Unknown Chronic Chronic constipation Unknown Chronic Chronic kidney disease Unknown Chronic Colonic mass Unknown Coronary artery disease Unknown Chronic Dyslipidemia Unknown Chronic GI bleed Unknown Acute Osteoarthritis Unknown Chronic Valvular disease Unknown Chronic Medications Current Home Medications Medication Dose Units Route Directions Days Qty Instructions Start Date Acetaminophen (Tylenol) 325 Mg Tablet 1-2 Tab Oral as needed for Prn Orders 60 Tablet 04/20/16 Areds2 1 Tab Twice A Day 04/20/16 Cetirizine Hcl (Zyrtec) 10 Mg Tablet [...] Oral Twice A Day 180 Tablet 04/20/16 Furosemide 40 Mg Tablet 40 Mg Oral Daily 04/14/09 Iron 325 Mg Twice A Day 04/20/16 Pantoprazole Sodium (Protonix) 40 Mg Tablet.dr 40 [...] mouth, once a day with breakfast. 04/20/16 Sennosides/Docusate Sodium (Senna Plus Tablet) 1 Udtab Tablet 1 Udtab Oral As Needed 04/19/09 Past Home Medications Medication Directions Ordered Status Aspirin (Aspir 81) 81 Mg Tablet., 81 Mg Oral Daily 04/14/09 Discontinued Rivaroxaban (Xarelto) 20 Mg Tablet, 1 Tab Oral Daily 04/20/16 Discontinued Social History Social History Problem Response Recorded Date/Time Onset Date Status Hx Substance Use Y QUIT 2 YRS AGO AFTER ABOUT 50 YEARS OF SMOKING 04/14/2009 8:20pm Not Applicable Not Applicable Hx Alcohol Use No 04/22/2016 11:14am Not Applicable Not Applicable Has the pt used tobacco in the last 12 months No 04/20/2016 2:29pm Not Applicable Not Applicable Tobacco Usage none 04/20/2016 4:35pm Not Applicable Not Applicable Query Response Start Date Stop Date Smoking Status Former smoker Hospital Discharge Instructions Instructions: Care Instructions: Reason for Hospitalization: Colonic mass I was in the hospital because (patient own words): says "bleeding from the rectum" Discharge Diet: Low Sodium Discharge Activity: As tolerated Follow Up Appointments: Dr Early in [address] Lucio for Path Follow up - office will call you on Monday to set appt. Pending Lab / Results: Will review at f/u apt Condition at time of discharge: Good Plan of Care Discharge Date 04/23/16 1:05pm Disposition 01 DISCHARGED HOME, SELF-CARE Instructions/Education Provided Anemia Prescriptions See Medication Section Care Plan and Goals See Discharge Instructions Section Functional Status Query Response Date Recorded Mobility Status Ambulatory w/assist April 23, 2016 12:21pm Assistive Devices Cane April 23, 2016 12:21pm Activity Limitations Fatigue Shortness of breath April 23, 2016 12:21pm Feeding Ability Independent April 23, 2016 12:21pm Toileting Ability Independent April 23, 2016 12:21pm Grooming Ability Independent April 23, 2016 12:21pm Dressing Ability Independent April 23, 2016 12:21pm Driving Ability Independent April 23, 2016 12:21pm Housework Ability Independent April 23, 2016 12:21pm Meal Preparation Ability Independent April 23, 2016 12:21pm Stair Climbing Ability Independent April 23, 2016 12:21pm Ability to complete ADL's impeded by No change April 23, 2016 12:21pm Cognitive/Perceptual Impairments Impaired vision Impaired hearing April 23, 2016 12:21pm Visual Assistive Devices Glasses April 20, 2016 2:43pm Hearing Assistive Devices Left hearing aid Right hearing aid April 20, 2016 2:43pm Allergies, Adverse Reactions, Alerts Allergen Type Severity Reaction Status Last Updated NKDA Allergy Unknown Active 04/14/09 Immunizations Query Response on File Recorded Date/Time Hx Influenza Vaccination Y jul 2015 04/20/16 2:29pm Hx Pneumococcal Vaccination Y jul 2015 04/20/16 2:29pm Hx Influenza Vaccination Y jul 2015 04/20/16 2:29pm Influenza Vaccine Hx 09/02/15 04/21/16 9:38am Vital Signs Acute Vital Signs Vital Response Date/Time Temperature (Fahrenheit) 98.0 deg F (96.8 - 99.1) 04/23/2016 11:46am Temperature (Calculated Celsius) 36.42503 degrees C (36.0 - 37.3) 04/23/2016 11:46am Temperature Source Oral 04/22/2016 4:55pm Pulse Rate (adult) 81 bpm (60 - 100) 04/23/2016 11:46am Respiratory Rate 18 breaths/min (10 - 20) 04/23/2016 11:46am O2 Sat by Pulse Oximetry 94 % (90 - 100) 04/23/2016 11:46am Oxygen Delivery Method Nasal Cannula 04/22/2016 8:17pm Oxygen Delivery Method Room Air 04/23/2016 11:46am Oxygen Flow Rate 1.00 L/min 04/23/2016 7:48am Blood Pressure 146/50 mm Hg 04/23/2016 11:46am Blood Pressure Source Automatic Cuff 04/23/2016 11:46am Height (Feet) 6 feet 04/23/2016 10:08am Height (Inches) 0.00 inches 04/23/2016 10:08am Weight (Kilograms) 91.500 kg 04/23/2016 7:50am Body Mass Index (BMI) 26.7 04/20/2016 2:24pm Results Laboratory Results Test Name Result Units Flags Reference Collection Date/Time Result Date/ Time Comments White Blood Count 9.8 T/MM3 4.5-11.0 04/23/2016 4:3104/23/2016 5: 20am Red Blood Count 2.61 M/MM3 L 4.50-5.90 04/23/2016 4:04/23/2016 5: 20am Hemoglobin 8.0 GM/DL L 13.5-17.5 04/23/2016 4:04/23/2016 5:20am Hematocrit 25.1 % L 41-53 04/23/2016 [...] (%) (Auto) 71.1 % H 33-66 04/23/2016 4:3104/23/2016 5: 20am Lymphocytes (%) (Auto) 13.1 % [...] Monocytes (auto) 0.9 T/MM3 H 0-0.8 04/23/2016 4:2015 5:20am Absolute Eosinophils (auto) 0.5 T/MM3 0-0.5 04/23/2016 4:2015 5:20am Absolute Basophils (auto) 0.0 T/MM3 0-0.2 04/23/2016 4:04/23/2016 5:20am Absolute Immature Granulocyte (auto 0.12 T/MM3 H 0.00-0.03 04/23/2016 4: 04/23/2016 5:20am Icterus Index < 2 0-7 04/23/2016 4:04/23/2016 5:21am Chemistry Specimen Hemolysis 26 H 0-25 04/23/2016 4:04/23/2016 5: 21am 26-70: Specimen Exhibited Slight Hemolysis - can falsely elevate K (Potassium) and Urine Protein. Turbidity < 20 0-20 04/23/2016 4:04/23/2016 5:21am Sodium Level 139 MEQ/L 134-144 04/23/2016 4:04/23/2016 5:21am Potassium Level 3.9 MEQ/L 3.6-5 04/23/2016 4:3104/23/2016 5:21am Chloride Level 104 MEQ/L D 98-107 04/23/2016 4:3104/23/2016 5:23am Carbon Dioxide Level 27 MEQ/L 22-30 04/23/2016 4:3104/23/2016 5: 21am Anion Gap 8 MEQ/L 5-15 04/23/2016 4:3104/23/2016 5:21am Blood Urea Nitrogen 16.0 MG/DL 9-04/23/2016 4:3104/23/2016 5: 21am Creatinine 1.1 MG/DL 0.8-1.5 04/23/2016 4:3104/23/2016 5:21am BUN/Creatinine Ratio 15 RATIO 6-04/23/2016 4:04/23/2016 5:21am Glomerular Filtration Rate Calc 64 04/23/2016 4:3104/23/2016 5: 21am Glucose Level 128 MG/DL H 75-110 04/23/2016 4:3104/23/2016 5:21am Calculated Osmolality 271 MOSM/KG 261-280 04/23/2016 4:3104/23/2016 5:21am Calcium Level 8.7 MG/DL 8.4-10.2 04/23/2016 4:3104/23/2016 5:21am Total Bilirubin 0.70 MG/DL 0.20-1.30 04/21/2016 [...] 1.4 NG/ML 0.8-2.0 04/20/2016 4:36pm 04/20/2016 5:08pm Procedures Procedure Status Date Provider(s) Colonoscopy with polypectomy and biopsy Completed 04/22/16 INES LUCIO MD EGD (esophagogastroduodenoscopy) Completed 04/22/16 INES LUCIO MD Encounters Encounter Location Arrival/Admit Date Discharge/Depart Date Attending Provider Discharged Inpatient [facility] 04/20/16 2:05pm 04/23/16 1:05pm ALINA MYLES MD
--- OUTSIDE RECORDS SUMMARY | 2017-02-03 17:43 | XMS REPORT | CCD ---
Author Author SCOTT BOYKIN Organization Unknown Address [address], [place] [id number] Phone 0 Care Team Providers Care Phys Therapist Name Role Phone TORSTEN OLIVARES Attending Physician 0 Vital Signs Unknown or Not Available. Allergies Allergy Code Allergy Type Reaction Status No Known Drug Allergies 0 No known drug allergies Active Procedures Unknown or Not Available. History of Immunizations Immunization Code Date Td (adult), adsorbed 09 11/20/2005 pneumococcal polysaccharide PPV23 33 Influenza, seasonal, injectable 141 09/02 Problems Unknown or Not Available. Results COMP METABOLIC - Collect Date/Time: 10/03/2016 09:55 Test Name Code Test Result Test Units Test Ref Range GLUCOSE 123 mg/dL L=70 H=110 BUN 24 mg/dL L=7 H=18 CREATININE 1.30 mg/ dL L=0.60 H=1.30 AGE 86 YEARS GFR 52.5 SODIUM 141 mmol/L L=136 H=145 POTASSIUM 3.7 mmol/ L L=3.5 H=5.1 CHLORIDE 105 mmol/L L=98 H=107 CO2 26 mmol/L L=21 H=32 CALCIUM 8.4 mg/dL L=8.5 H=10.1 AST 14 U/L L=15 H=37 ALT 15 U/L L=12 H=78 ALKALINE PHOS 63 U/ L L=46 H=116 TOTAL PROTEIN 6.5 g/ dL L=6.4 H=8.2 ALBUMIN 2.7 g/dL L=3.4 H=5.0 TOTAL BILI 0.30 mg/ dL L=0.00 H=1.00 COMP METABOLIC - Collect Date/Time: 09/27/2016 09:50 Test Name Code Test Result Test Units Test Ref Range GLUCOSE 100 mg/dL L=70 H=110 BUN 30 mg/dL L=7 H=18 CREATININE 1.36 mg/ dL L=0.60 H=1.30 AGE 86 YEARS GFR 49.8 SODIUM 142 mmol/L L=136 H=145 POTASSIUM 3.9 mmol/ L L=3.5 H=5.1 CHLORIDE 105 mmol/L L=98 H=107 CO2 28 mmol/L L=21 H=32 CALCIUM 8.7 mg/dL L=8.5 H=10.1 AST 14 U/L L=15 H=37 ALT 20 U/L L=12 H=78 ALKALINE PHOS 65 U/ L L=46 H=116 TOTAL PROTEIN 6.7 g/ dL L=6.4 H=8.2 ALBUMIN 2.9 g/dL L=3.4 H=5.0 TOTAL BILI 0.30 mg/ dL L=0.00 H=1.00 CBC W/ DIFF - Collect Date/Time: 10/03/2016 09:55 Test Name Code Test Result Test Units Test Ref Range WBC 11.3 x10^3 L=4.8 H=10.8 RBC 3.30 x10^6 L=4.70 H=6.10 HEMOGLOBIN 9.1 g/dL L=14.0 H=18.0 HEMATOCRIT 28.1 % L=42.0 H=52.0 MCV 85 fL L=80 H=100 MCH 27.6 pg L=27.0 H=33.0 MCHC 32.5 g/dL L=33.0 H=37.0 RDW 16.4 % L=11.5 H=14.5 PLATELETS 216 x10^3 L=150 H=450 MPV 8.5 fL L=7.8 H=11.0 NEUTROPHILS 71.6 % L=40.0 H=80.0 LYMPHOCYTES 14.8 % L=20.0 H=45.0 MONOCYTES 8.6 % L=0.0 H=10.0 EOSINOPHILS 4.0 % L=0.0 H=5.0 BASOPHILS 1.0 % L=0.0 H=2.0 REFLEX MAN DIFF NO N /A CBC W/ DIFF - Collect Date/Time: 09/27/2016 09:50 Test Name Code Test Result Test Units Test Ref Range WBC 11.7 x10^3 L=4.8 H=10.8 RBC 3.25 x10^6 L=4.70 H=6.10 HEMOGLOBIN 9.3 g/dL L=14.0 H=18.0 HEMATOCRIT 27.9 % L=42.0 H=52.0 MCV 86 fL L=80 H=100 MCH 28.5 pg L=27.0 H=33.0 MCHC 33.2 g/dL L=33.0 H=37.0 RDW 16.6 % L=11.5 H=14.5 PLATELETS 186 x10^3 L=150 H=450 MPV 9.4 fL L=7.8 H=11.0 NEUTROPHILS 73.8 % L=40.0 H=80.0 LYMPHOCYTES 15.6 % L=20.0 H=45.0 MONOCYTES 6.6 % L=0.0 H=10.0 EOSINOPHILS 3.9 % L=0.0 H=5.0 BASOPHILS 0.1 % L=0.0 H=2.0 REFLEX MAN DIFF NO N /A UA AUTO W/ MICRO - Collect Date/Time: 10/03/2016 10:00 Test Name Code Test Result Test Units Test Ref Range COLOR Yellow N/A NORMAL: Yellow APPEARANCE Clear N/ A NORMAL: Clear GLUCOSE Negative N/ A NORMAL: Negative BILIRUBIN Negative N /A NORMAL: Negative KETONE Negative N/A NORMAL: Negative SPEC GRAVITY 1.020 N /A NORMAL: 1.005-1.030 BLOOD Negative N/A NORMAL: Negative PROTEIN Negative N/ A NORMAL: Negative PH 6.0 N/A NORMAL: 5.0-8.0 UROBILINOGEN 0.2 N/ A NORMAL: Negative NITRITE Negative N/ A NORMAL: Negative LEUKOCYTES Negative N/A NORMAL: Negative MICRO RBC 0-2 N/A NORMAL: 0-2 MICRO WBC 0-2 N/A NORMAL: 0-2 BACTERIA Trace N/A NORMAL: None-Trace EPI CELLS 5-10 N/A NORMAL: 0-15 MUCUS Small N/A NORMAL: None-Small AMORPHOUS None Seen N/A NORMAL: None Seen YEAST None Seen N/A NORMAL: None Seen CRYSTALS None Seen N /A NORMAL: None Seen CAST Hyaline C N/A NORMAL: None Seen URINE CULTURE? NO N/ A UA AUTO W/ MICRO - Collect Date/Time: 09/27/2016 09:50 Test Name Code Test Result Test [...] LEUKOCYTES Negative N/A NORMAL: Negative MICRO RBC 2-5 N/A NORMAL: 0-2 MICRO WBC None Seen [...] Modification Start Date/Time Carvedilol 25MG Oral Tablet [id number] 12.5 MILLIGRAMS TWICE A DAY ORAL 08/19/2016 16:19 Prescription Detail 12.5 MILLIGRAMS ORAL TWICE A DAY PreserVision Areds Oral Capsule, Liquid Filled [id number] 1 EACH TWICE A DAY ORAL 08/19/2016 16:19 Prescription Detail 1 EACH ORAL TWICE A DAY Vancomycin HCl 1GM Intravenous Powder for Solution [id number] 1 GRAM DAILY INTRAVENOUS 08/19/2016 16:19 Prescription Detail 1 GRAM INTRAVENOUS DAILY Verapamil HCl 240MG Oral Tablet, Extended Release [id number] 240 MILLIGRAMS DAILY ORAL 08/19/2016 16:19 Prescription Detail 240 MILLIGRAMS ORAL DAILY Xarelto 20MG Oral Tablet [id number] 20 MILLIGRAMS ORAL 08/19/2016 16:19 Prescription Detail 20 MILLIGRAMS ORAL Multaq 400MG Oral Tablet [id number] 400 MILLIGRAMS TWICE A DAY ORAL 07/08/2016 10:35 Prescription Detail 400 MILLIGRAMS ORAL TWICE A DAY Nitrostat 0.4MG Sublingual Tablet [id number] 0.4 MILLIGRAMS NEEDED SUBLINGUAL 07/08/2016 10:[address] 0.4 MILLIGRAMS SUBLINGUAL NEEDED predniSONE 5MG Oral Tablet [id number] 5 MILLIGRAMS DAILY ORAL 07/08/2016 10:35 Prescription Detail 5 MILLIGRAMS ORAL DAILY Aspir Low 81MG Oral Tablet, Enteric Coated [id number] 81 MILLIGRAMS DAILY ORAL 04/20/2016 10:56 Prescription Detail 81 MILLIGRAMS ORAL DAILY Klor-Con M20 20MEQ Oral Tablet, Extended Release [id number] 20 MEQ TWICE A DAY ORAL 04/20/2016 10:56 Prescription Detail 20 MEQ ORAL TWICE A DAY Vitamin D3 5000 IU Oral Tablet [id number] 5000 IU DAILY ORAL 04/20/2016 10:56 Prescription Detail 5000 IU ORAL DAILY Ferrous Sulfate 325MG Oral Tablet [id number] 325 MILLIGRAMS TWICE A DAY ORAL 12/31/2015 12:54 Prescription Detail 325 MILLIGRAMS ORAL TWICE A DAY Pantoprazole Sodium 40MG Oral Tablet, Enteric Coated [id number] 40 MILLIGRAMS DAILY ORAL 06/25/2015 10:29 Prescription Detail 40 MILLIGRAMS ORAL DAILY Pravastatin 40MG Oral Tablet [id number] 40 MILLIGRAMS DAILY ORAL 06/25/2015 10:29 Prescription Detail 40 MILLIGRAMS ORAL DAILY ZyrTEC 10MG Oral Tablet [id number] 10 MILLIGRAMS NEEDED ORAL 06/25/2015 10:29 Prescription Detail 10 MILLIGRAMS ORAL NEEDED Medications Administered During Visit Unknown or Not Available. Encounters Encounter Diagnosis Diagnosis Code Start Date Essential (primary) hypertension I10 06/2016 Social History Smoking Status Code Start Date End Date Former smoker [id number] Patient Decision Aids Unknown or Not Available. Discharge Instructions You were admitted to [facility] on 09/27/2016 09:57 with a principal diagnosis of Hypotension, unspecified You had the following tests done: CBC W / DIFF CBC W/ DIFF COMP METABOLIC COMP METABOLIC UA AUTO W/ MICRO UA AUTO W/ MICRO You were discharged from [facility] on 10/19/2016 23:59 Should you have any questions prior to [...]
--- OUTSIDE RECORDS SUMMARY | 2017-02-03 17:43 | XMS REPORT | CCD ---
Author Author SCOTT BOYKIN Organization Unknown Address [address], [place] [id number] Phone 0 Care Team Providers Care Chemical Mixer Name Role Phone SCOTTY AWAD W Attending Physician [phone] SCOTTY AWAD W Primary Surgeon [phone] Vital Signs Unknown or Not Available. Allergies Allergy Code Allergy Type Reaction Status No Known Drug Allergies 0 No known drug allergies Active Procedures Unknown or Not Available. History of Immunizations Unknown or Not Available. Problems Unknown or Not Available. Results C-REACTIVE PROTEIN - Collect Date/Time: 11/29/2015 12:45 Test Name Code Test Result Test Units Test Ref Range CRP 128 mg/L L=0 H=5 COMP METABOLIC - Collect Date/Time: 11/29/2015 12:45 Test Name Code Test Result Test Units Test Ref Range GLUCOSE 118 mg/dL L=70 H=110 BUN 26 mg/dL L=7 H=18 CREATININE 1.80 mg/ dL L=0.60 H=1.30 AGE 85 YEARS GFR 38.4 SODIUM 135 mmol/L L=136 H=145 POTASSIUM 4.5 mmol/ L L=3.5 H=5.1 CHLORIDE 99 mmol/L L=98 H=107 CO2 22 mmol/L L=21 H=32 CALCIUM 9.6 mg/dL L=8.5 H=10.1 AST 19 U/L L=15 H=37 ALT 29 U/L L=12 H=78 ALKALINE PHOS 84 U/ L L=46 H=116 TOTAL PROTEIN 8.0 g/ dL L=6.4 H=8.2 ALBUMIN 3.7 g/dL L=3.4 H=5.0 TOTAL BILI 0.60 mg/ dL L=0.00 H=1.00 LACTIC ACID - Collect Date/Time: 11/29/2015 12:45 Test Name Code Test Result Test Units Test Ref Range LACTIC ACID 3.3 mmol /L L=0.4 H=2.0 CBC W/ DIFF - Collect Date/Time: 11/29/2015 12:45 Test Name Code Test Result Test Units Test Ref Range WBC 14.5 x10^3 L=4.8 H=10.8 RBC 3.69 x10^6 L=4.70 H=6.10 HEMOGLOBIN 10.9 g/ dL L=14.0 H=18.0 HEMATOCRIT 34.0 % L=42.0 H=52.0 MCV 92 fL L=80 H=100 MCH 29.6 pg L=27.0 H=33.0 MCHC 32.1 g/dL L=33.0 H=37.0 RDW 15.0 % L=11.5 H=14.5 PLATELETS 164 x10^3 L=150 H=450 MPV 9.8 fL L=7.8 H=11.0 NEUTROPHILS 82.7 % L=40.0 H=80.0 LYMPHOCYTES 8.7 % L=20.0 H=45.0 MONOCYTES 6.8 % L=0.0 H=10.0 EOSINOPHILS 1.0 % L=0.0 H=5.0 BASOPHILS 0.8 % L=0.0 H=2.0 SEG 78 %% L=40 H=80 BAND 8 %% L=0 H=5 LYMPH 9 %% L=20 H=45 MONO 3 %% L=0 H=10 EOS 0 %% L=0 H=5 BASO 0 %% L=0 H=2 ATYP LYMPH 2 %% L=0 H=10 META 0 %% L=0 H=1 REFLEX MAN DIFF YES N/A RBC MORPHOLOGY SEE BELOW N/A ANISO SLIGHT N/A NORMAL: NONE SEEN POIK SLIGHT N/A NORMAL: NONE SEEN HYPO 1+ N/A NORMAL: NONE SEEN MICRO NONE SEEN N/A NORMAL: NONE SEEN MACRO NONE SEEN N/A NORMAL: NONE SEEN POLY NONE SEEN N/A NORMAL: NONE SEEN TOXIC GRAN NONE SEEN N/A NORMAL: NONE SEEN NUCLEATED RBC NONE SEEN N/A NORMAL: NONE SEEN Active Medications Medication Code Dose Units Frequency Route Modification Start Date/Time Ampicillin 2GM Injection Powder for Solution [id number] 4 GRAM THREE TIMES DAILY IVPB 12/04/2015 15:10 Prescription Detail 4 GRAM IVPB THREE TIMES DAILY Fluticasone Prop 0.05MG/Actuation Nasal [place] [id number] 2 [place] AT BEDTIME NASAL 12/04/2015 15:10 Prescription Detail 2 [place] NASAL AT BEDTIME Haloperidol 5MG Oral Tablet [id number] 5 MILLIGRAMS DAILY/HS BY MOUTH 12/04/2015 15:10 Prescription Detail TAKE 5 MILLIGRAMS BY MOUTH DAILY/HS Klor-Con M20 20MEQ Oral Tablet, Extended Release [id number] 20 MILLIEQUIVALENT TWICE A DAY BY MOUTH 2015 15:10 Prescription Detail TAKE 20 MILLIEQUIVALENT BY MOUTH TWICE A DAY predniSONE 20MG Oral Tablet [id number] 20 MILLIGRAMS QD BY MOUTH 12/04/2015 15:10 Prescription Detail TAKE 20 MILLIGRAMS BY MOUTH QD PreserVision Areds Oral Capsule, Liquid Filled [id number] 1 EACH DAILY ORAL 12/04/2015 15:10 Prescription Detail 1 EACH ORAL DAILY Sodium Chloride 0.9% Injection Solution [id number] 10 MILLILITER NEEDED IV PUSH 12/04/2015 15:10 Prescription Detail 10 MILLILITER IV PUSH NEEDED Sodium Chloride 0.9% Irrigation Solution 780643 Liter THREE TIMES DAILY INTRAVENOUS 12/04/2015 15: 10 Prescription Detail Liter INTRAVENOUS THREE TIMES DAILY Lasix 40MG Oral Tablet [id number] 40 MILLIGRAMS DAILY ORAL 10/14/2015 12:24 Prescription Detail 40 MILLIGRAMS ORAL DAILY Norvasc 5MG Oral Tablet [id number] 5 MILLIGRAMS AT BEDTIME ORAL 10/14/2015 12:24 Prescription Detail 5 MILLIGRAMS ORAL AT BEDTIME Colace 100MG Oral Capsule, Liquid Filled [id number] 100 MILLIGRAMS bid BY MOUTH 06/25/2015 10:30 Prescription Detail TAKE 100 MILLIGRAMS BY MOUTH bid Lopressor 50MG Oral Tablet [id number] 50 MILLIGRAMS TWICE A DAY BY MOUTH 06/25/2015 10:30 Prescription Detail TAKE 50 MILLIGRAMS BY MOUTH TWICE A DAY Tums Regular Strength 500MG Oral Tablet, Chewable 583658 5047 MILLIGRAMS PRN QID BY MOUTH 06/25/2015 10:30 Prescription Detail TAKE 1000 MILLIGRAMS BY MOUTH PRN QID Aspirin 81MG Oral Tablet [id number] 81 MILLIGRAMS DAILY ORAL 06/25/2015 10:29 Prescription Detail 81 MILLIGRAMS ORAL DAILY Digoxin 0.125MG Oral Tablet 804256 0.125 MILLIGRAMS DAILY ORAL 06/25/2015 10:29 Prescription Detail 0.125 MILLIGRAMS ORAL DAILY Mapap 325MG Oral Tablet [id number] 325 MILLIGRAMS PRN Q6H BY MOUTH 06/25/2015 10:29 Prescription Detail TAKE 325 MILLIGRAMS BY MOUTH PRN Q6H Milk Of Magnesia 1200MG/15ML Oral Suspension [id number] 1 EACH NEEDED ORAL 06/25/2015 10:29 Prescription Detail 1 EACH ORAL NEEDED Nature's Blend Vitamin D3 5000IU Oral Tablet [id number] 2639 INTERNATIONAL UNITS DAILY ORAL 2014 10:29 Prescription Detail 5000 INTERNATIONAL UNITS ORAL DAILY Pantoprazole Sodium 40MG Oral Tablet, Enteric Coated [id number] 40 MILLIGRAMS DAILY ORAL 06/25/2015 10:29 Prescription Detail 40 MILLIGRAMS ORAL DAILY Pravastatin 40MG Oral Tablet [id number] 40 MILLIGRAMS DAILY ORAL 06/25/2015 10:29 Prescription Detail 40 MILLIGRAMS ORAL DAILY Xarelto 20MG Oral Tablet [id number] 20 MILLIGRAMS QD ORAL 06/25/2015 10:29 Prescription Detail 20 MILLIGRAMS ORAL QD ZyrTEC 10MG Oral Tablet [id number] 10 MILLIGRAMS NEEDED ORAL 06/25/2015 10:29 Prescription Detail 10 MILLIGRAMS ORAL NEEDED Medications Administered During Visit Unknown or Not Available. Encounters Encounter Diagnosis Diagnosis Code Start Date Streptococcal sepsis, unspecified A409 Social History Smoking Status Code Start Date End Date Former smoker [id number] Patient Decision Aids Unknown or Not Available. Discharge Instructions You were admitted to [facility] on 11/29/2015 with a principal diagnosis of Streptococcal sepsis, unspecified. You were discharged from [facility] on 11/29/2015. Should you have any questions prior to discharge, please contact a member of your healthcare team. If you have left the hospital and have any questions, please contact your primary care physician. Chief Complaint and Reason For Visit Chief Complaint Date of Onset POSITIVE BLOOD CULTURES Function Status Unknown or Not Available. Plan of Care Unknown or Not Available. Referral/Transition of Care Unknown or Not Available.
--- OUTSIDE RECORDS SUMMARY | 2017-02-03 17:43 | XMS REPORT | Summary of Care ---
Author Author David Barajas M.D. Organization Unknown Address [address] [place] [address] [place] [address] Phone Unavailable Care Team Providers Care Court Monitor Name Role Phone David Barajas M.D. 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 David Barajas M.D.* Started 08-Feb-2016 ActiveColace 100 MG Oral Capsule take 2 capsules daily * Refills: 0 * Started 08-Feb-2016 ActiveVitamin D3 5000 UNIT Oral Capsule TAKE DIRECTED. * Refills: 0 * Started 08-Feb-2016 ActiveZyrTEC Allergy 10 MG Oral Tablet TAKE 1 TABLET DAILY DIRECTED. * Refills: 0 * Started 08-Feb-2016 ActiveNitrostat 0.4 MG Sublingual Tablet Sublingual DISSOLVE 1 TABLET UNDER THE TONGUE NEEDED FOR CHEST PAIN. * Refills: 0 * Started 08-Feb-2016 ActiveXarelto 20 MG Oral Tablet * Refills: 0 * Started 08-Feb-2016 ActiveFerrous Gluconate 325 (36 Fe) MG Oral Tablet Take 1 tablet twice daily * Refills: 0 * Started 08-Feb-2016 ActiveFurosemide 40 MG Oral Tablet TAKE 1 TABLET DAILY. * Refills: 0 * Started 08-Feb-2016 ActiveAmLODIPine Besylate 10 MG Oral Tablet TAKE 1 TABLET DAILY. * Refills: 0 * Started 08-Feb-2016 ActiveMetoprolol Tartrate 50 MG Oral Tablet TAKE 1 TABLET EVERY 12 HOURS DAILY. * Refills: 0 * Started 08-Feb-2016 ActivePravastatin Sodium 40 MG Oral Tablet TAKE 1 TABLET AT BEDTIME. * Refills: 0 * Started 08-Feb-2016 ActiveDigoxin 125 MCG Oral Tablet TAKE 1 TABLET DAILY. * Refills: 0 * Started 08-Feb-2016 ActivePredniSONE 10 MG Oral Tablet TAKE 1 TABLET NEEDED. * Refills: 0 * Started 08-Feb-2016 ActiveSenokot S 8.6-50 MG Oral Tablet TAKE 1 TABLET TWICE DAILY NEEDED. * Refills: 0 * Started 08-Feb-2016 ActiveKlor-Con M20 20 MEQ Oral Tablet Extended Release TAKE 2 TABLETS TWICE DAILY * Refills: 0 * Started 08-Feb-2016 ActivePantoprazole Sodium 40 MG Oral Tablet Delayed Release TAKE 1 TABLET DAILY. * Refills: 0 * Started 12-Feb-2016 ActiveTylenol 325 MG Oral Tablet TAKE 1 TO 2 TABLETS EVERY 4 HOURS NEEDED * Refills: 0 * Started 12-Feb-2016 Active Allergies and Adverse Reactions Name Dates Details No Known Drug Allergies Status: Active Past Medical History Name Dates Details History of Paroxysmal atrial fibrillation (427.31, I48.0) Status: Resolved History of sepsis (V12.09, Z86.19) Status: Resolved Procedures Procedure Dates Details History of Heart Surgery History of Heart Valve Replacement History of Pacemaker Placement History of Back Surgery Procedures not documented Immunization Name Dates Details Immunizations not documented Family History Mother* Name Dates Details Family history of Heart problem (429.9, I51.9) Status: Active Family history of malignant neoplasm (V16.9, Z80.9) Status: Active Social History Name Dates Details Smoking Status* Former smoker Vital Signs Date Test Result Details 12-Feb-2016 15:53 BP Systolic 125 mm[Hg] Status: BP Diastolic 79 mm[Hg] Status: Heart Rate 115 /min Status: Height 72 in Status: Results Date Description Value Details Results not documented Plan of Care Planned Observations* Name Dates Details Planned Goals not documented Goal Instructions * Instructions not documented Encounters Appointment; David Barajas Encounter Diagnosis: Problem not documented On 12-Feb-2016 16:00
--- OUTSIDE RECORDS SUMMARY | 2017-02-03 17:43 | XMS REPORT | CCD ---
Author Author SERGIO TELLEZ Organization Unknown Address [address], [place] [id number] Phone 0 Care Team Providers Care General Forecaster Name Role Phone TORSTEN OLIVARES Attending Physician [...] Code Start Date End Date Former smoker [id number] Patient Decision Aids Unknown or Not Available. Discharge Instructions You were admitted to [facility] on 05/29/2014. You were discharged from [facility] on 05/29/2014. Should you have any questions prior to discharge, please contact a member of your healthcare team. If you have left the hospital and have any questions, please contact your primary care physician. Chief Complaint and Reason For Visit Chief Complaint Date of Onset CT LT HIP Function Status Unknown or Not Available. Plan of Care Unknown or Not Available. Referral/Transition of Care Unknown or Not Available.
--- OUTSIDE RECORDS SUMMARY | 2017-02-03 17:43 | XMS REPORT | CCD ---
Author Author SCOTT BOYKIN Organization Unknown Address [address], [place] [id number] Phone 0 Care Team Providers Care Manager Discovery Name Role Phone TORSTEN OLIVARES Attending Physician 0 F., GENOVEVA Nurse Assisstant 0 J., GEOVANNY Nurse Assisstant 0 Vital Signs Unknown or Not Available. Allergies Allergy Code Allergy Type Reaction Status No Known Drug Allergies 0 No known drug allergies Active Procedures Unknown or Not Available. History of Immunizations Immunization Code Date Td (adult), adsorbed 09 11/20/2005 pneumococcal polysaccharide PPV23 33 Influenza, seasonal, injectable 141 09/02 Problems Unknown or Not Available. Results COMP METABOLIC - Collect Date/Time: 07/12/2016 14:20 Test Name Code Test Result Test Units Test Ref Range GLUCOSE 121 mg/dL L=70 H=110 BUN 19 mg/dL L=7 H=18 CREATININE 1.09 mg/ dL L=0.60 H=1.30 AGE 85 YEARS GFR 64.4 SODIUM 137 mmol/L L=136 H=145 POTASSIUM 3.4 mmol/ L L=3.5 H=5.1 CHLORIDE 102 mmol/L L=98 H=107 CO2 25 mmol/L L=21 H=32 CALCIUM 8.6 mg/dL L=8.5 H=10.1 AST 23 U/L L=15 H=37 ALT 29 U/L L=12 H=78 ALKALINE PHOS 84 U/ L L=46 H=116 TOTAL PROTEIN 6.9 g/ dL L=6.4 H=8.2 ALBUMIN 2.9 g/dL L=3.4 H=5.0 TOTAL BILI 0.40 mg/ dL L=0.00 H=1.00 CBC W/ DIFF - Collect Date/Time: 07/12/2016 14:20 Test Name Code Test Result Test Units Test Ref Range WBC 10.1 x10^3 L=4.8 H=10.8 RBC 4.04 x10^6 L=4.70 H=6.10 HEMOGLOBIN 11.6 g/ dL L=14.0 H=18.0 HEMATOCRIT 34.9 % L=42.0 H=52.0 MCV 86 fL L=80 H=100 MCH 28.8 pg L=27.0 H=33.0 MCHC 33.4 g/dL L=33.0 H=37.0 RDW 16.8 % L=11.5 H=14.5 PLATELETS 158 x10^3 L=150 H=450 MPV 9.1 fL L=7.8 H=11.0 NEUTROPHILS 78.1 % L=40.0 H=80.0 LYMPHOCYTES 9.1 % L=20.0 H=45.0 MONOCYTES 8.0 % L=0.0 H=10.0 EOSINOPHILS 4.3 % L=0.0 H=5.0 BASOPHILS 0.5 % L=0.0 H=2.0 REFLEX MAN DIFF NO N /A UA AUTO W/ MICRO - Collect Date/Time: 07/12/2016 15:00 Test Name Code Test Result Test Units Test Ref Range COLOR Yellow N/A NORMAL: Yellow APPEARANCE Clear N/ A NORMAL: Clear GLUCOSE Negative N/ A NORMAL: Negative BILIRUBIN Negative N /A NORMAL: Negative KETONE Negative N/A NORMAL: Negative SPEC GRAVITY 1.020 N /A NORMAL: 1.005-1.030 BLOOD Trace-in N/A NORMAL: Negative PROTEIN Negative N/ A NORMAL: Negative PH 5.5 N/A NORMAL: 5.0-8.0 UROBILINOGEN 0.2 N/ A NORMAL: Negative NITRITE Negative N/ A NORMAL: Negative LEUKOCYTES Trace N/ A NORMAL: Negative MICRO RBC 0-2 N/A NORMAL: 0-2 MICRO WBC 2-5 N/A NORMAL: 0-2 BACTERIA Trace N/A NORMAL: None-Trace EPI CELLS 10-15 N/A NORMAL: 0-15 MUCUS Trace N/A NORMAL: None-Small AMORPHOUS None Seen N/A NORMAL: None Seen YEAST 1+ N/A NORMAL: None Seen CRYSTALS None Seen N /A NORMAL: None Seen CAST Hyaline C N/A NORMAL: None Seen URINE CULTURE? NO N/ A Active Medications Medication Code Dose Units Frequency Route Modification Start Date/Time Verapamil HCl 180MG Oral Tablet, Extended Release 106364 1 TABLET TWICE A DAY BY MOUTH 07/08/2016 11: 19 Prescription Detail TAKE 1 TABLET BY MOUTH TWICE A DAY Multaq 400MG Oral Tablet [id number] 400 MILLIGRAMS TWICE A DAY ORAL 07/08/2016 10:35 Prescription Detail 400 MILLIGRAMS ORAL TWICE A DAY Nitrostat 0.4MG Sublingual Tablet 996659 0.4 MILLIGRAMS NEEDED SUBLINGUAL 07/08/2016 10:[address] 0.4 MILLIGRAMS SUBLINGUAL NEEDED predniSONE 5MG Oral Tablet 220290 5 MILLIGRAMS DAILY ORAL 07/08/2016 10:35 Prescription Detail 5 MILLIGRAMS ORAL DAILY Xarelto 20MG Oral Tablet [id number] 20 MILLIGRAMS DAILY ORAL 07/08/2016 10:35 Prescription Detail 20 MILLIGRAMS ORAL DAILY Aspir Low 81MG Oral Tablet, Enteric Coated [id number] 81 MILLIGRAMS DAILY ORAL 04/20/2016 10:56 Prescription Detail 81 MILLIGRAMS ORAL DAILY Klor-Con M20 20MEQ Oral Tablet, Extended Release 899661 20 MEQ TWICE A DAY ORAL 04/20/2016 10:56 Prescription Detail 20 MEQ ORAL TWICE A DAY Vitamin D3 5000 IU Oral Tablet [id number] 5000 IU DAILY ORAL 04/20/2016 10:56 Prescription Detail 5000 IU ORAL DAILY Docusate Sodium and Senna 50MG-8.6MG Oral Tablet 458575 1 EACH AT BEDTIME ORAL 12/31/2015 12:54 Prescription Detail 1 EACH ORAL AT BEDTIME Ferrous Sulfate 325MG Oral Tablet 909840 325 MILLIGRAMS TWICE A DAY ORAL 12/31/2015 12:54 Prescription Detail 325 MILLIGRAMS ORAL TWICE A DAY Fluticasone Prop 0.05MG/Actuation Nasal Mcdonough 7977243 2 Mcdonough AT BEDTIME NASAL 12/04/2015 15:10 Prescription Detail 2 Mcdonough NASAL AT BEDTIME PreserVision Areds Oral Capsule, Liquid Filled [id number] 1 EACH DAILY ORAL 12/04/2015 15:10 Prescription Detail 1 EACH ORAL DAILY Lasix 40MG Oral Tablet 40 MILLIGRAMS DAILY ORAL 10/14/2015 12:24 Prescription Detail 40 MILLIGRAMS ORAL DAILY Digoxin 0.125MG Oral Tablet 0.125 MILLIGRAMS DAILY ORAL 06/25/2015 10:29 Prescription Detail 0.125 MILLIGRAMS ORAL DAILY Pantoprazole Sodium 40MG Oral Tablet, Enteric Coated 725125 40 MILLIGRAMS DAILY ORAL 06/25/2015 10:29 Prescription Detail 40 MILLIGRAMS ORAL DAILY Pravastatin 40MG Oral Tablet 446967 40 MILLIGRAMS DAILY ORAL 06/25/2015 10:29 Prescription Detail 40 MILLIGRAMS ORAL DAILY ZyrTEC 10MG Oral Tablet 8449318 10 MILLIGRAMS NEEDED ORAL 06/25/2015 10:29 Prescription Detail 10 MILLIGRAMS ORAL NEEDED Medications Administered During Visit Unknown or Not Available. Encounters Encounter Diagnosis Diagnosis Code Start Date Diarrhea, unspecified R197 07/12/2016 Social History Smoking Status Code Start Date End Date Former smoker [id number] Patient Decision Aids Unknown or Not Available. Discharge Instructions You were admitted to [facility] on 07/12/2016 14:09 with a principal diagnosis of Diarrhea, unspecified You had the following tests done: CBC W / DIFF COMP METABOLIC UA AUTO W/ MICRO You were discharged from [facility] on 07/20/2016 23:59 Should you have any questions prior to discharge, please contact a member of your healthcare team. If you have left the hospital and have any questions, please contact your primary care physician. Chief Complaint and Reason For Visit Chief Complaint Date of Onset LAB O/P MEDS Function Status Unknown or Not Available. Plan of Care Unknown or Not Available. Referral/Transition of Care Unknown or Not Available.
--- OUTSIDE RECORDS SUMMARY | 2017-02-03 18:16 | XMS REPORT | Continuity of Care Document ---
Author Author [facility] Organization [facility] Address Unknown Phone Unavailable Allergies Active Description Code Type Severity Reaction Onset Reported/Identified Relationship to Patient Clinical Status Yes No Known Medication Allergies NKMA N/A N/A 10/06/2015 Medications Problems Date Dx Coded Attending Type Code Diagnosis Diagnosed By 10/26/2015 aMndy Klein MD Admitting A41.81 Sepsis due to Enterococcus 10/26/2015 Mandy Klein MD Final E78.5 Hyperlipidemia, unspecified 10/26/2015 Mandy Klein MD Final G93.40 Encephalopathy, unspecified 10/26/2015 Mandy Klein MD Final 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 Visit Date/Time Discharge Status Pt. Type Provider Facility Loc./Unit Complaint [id number] 10/06/2015 14:59:00 2014 16:04:00 DIS Inpatient Mandy Klein MD [facility] [place] V[facility]F F4SE Sepsis [id number] 12/04/2015 17:16:00 ACT Inpatient Manyd Klein MD [facility] on [place] [facility]F F4SE SEPSIS
--- NOTE | 2017-02-03 18:29 | ERPDOC ---
Departure Disposition Decision Date: Feb 03, 2017 Disposition Decision Time: 19:49 Disposition: 02 TO [facility] Impression Impression Impression: Primary Impression: GI bleed GI bleed type/associated pathology: unspecified gastrointestinal hemorrhage type Qualified Codes: K92.2 - Gastrointestinal hemorrhage, unspecified Severity: Moderate Condition: Stable Seen By: Physician only Referrals: JUAN HAZEL "CINDY" (Family) Problems/Meds/Labs Reviewed?: Yes Medications reviewed and manag: Yes Follow up care ordered?: Yes Mental Status: Alert, Oriented HPI - General Medical General Stated Complaint: GI BLEED Time Seen by Provider: 18:28 Source: patient Exam Limitations: no limitations HPI - General Medical Initial Comments Patient is an 86-year-old male, presents emergency room for evaluation of GI bleed. Patient was complaining of some bloody black tarry stools today was seen in his primary medical physician's office was found to have a hemoglobin of 9.4 which is down from 10.6. Dr. Mc, surgery was consult and, that he be happy to see the patient, however he would recommend hospitalist admit. Dr. Leal was consult and, however she felt patient would benefit from evaluation in the emergency Department 1st. Patient was sent to the ER. 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 Fatima for colon cancer with laparotomy, lysis of adhesions, mobilization of the splenic flexure, resection of distal transverse colon and descending colon with primary anastomosis. Past Medical History Metabolic: cancer Cardiac: A-fib, CAD Respiratory: pneumonia Male: renal insufficiency Surgical History General: other Cardiac: valve replacement Vaccines Hx Influenza Vaccination: Yes () Hx Pneumococcal Vaccination: Yes () Social History Does patient use chewing tobac: No # of Packs/Tins per Day: 1-2 # of Years: 60 Marital Status: Sexuality: female partner Review of Systems Constitutional Constitutional: appetite decrease, weakness, DENIES: chills, dizziness, fever Eyes Vision: DENIES: loss of visual cervantes ENMT Sinuses: DENIES: congestion, rhinorrhea Mouth/Throat: DENIES: scratchy throat, sore throat Cardiovascular Cardiac: DENIES: chest pain, dyspnea on exertion Pulmonary Respiratory: DENIES: cough, dyspnea, sputum, tachypnea GI Upper Abdomen: DENIES: nausea, pain, vomiting Lower Abdomen: blood in stool, diarrhea, other (black stools), DENIES: pain General: DENIES: frequency, urgency Musculoskeletal General: DENIES: cramps, pain, weakness Integumentary Skin: DENIES: color change, itching, rash Endocrine Endocrine: DENIES: heat/cold intolerance Hematologic/Lymphatic Hematologic/Lymphatic: DENIES: anemia Physical Exam General General Nourishment: well nourished, well developed General Body Habitus: well groomed Vitals and Pain Weight: Kilograms: Height (feet): 6 Height (inches): 1.00 Triage Pain Scale: RN VS reviewed by Provider: Yes Eyes (brief) Eyes Brief: found: EOMI ENMT (brief) ENMT Brief: FOUND: mucosa moist, normal dentition, NOT FOUND: nasal erythema, pharnyx erythema, tonsillar deviation Neck (brief) Neck: NOT FOUND: adenopathy, spasm, tenderness Respiratory (brief) Respiratory: FOUND: clear all cervantes, equal bilaterally, NOT FOUND: rales, wheezes Cardiovascular (brief) Cardiac: FOUND: regular rate, regular rhythm Capillary Refill: <2 sec Musculoskeletal (brief) Musculoskeletal Brief: NOT FOUND: spasm, tenderness Integumentary (brief) Integumentary Brief: FOUND: dry, pink, warm, NOT FOUND: rash Neurologic (brief) Neurological Brief: FOUND: CN w/o gross def to obs, motor-no gross deficits, sensory-no gross deficits Psychiatric (brief) Psychiatric Brief: FOUND: alert, oriented Differential Diagnoses Considering: Hypo/Hyperglycemia, Hypo/Hyperkalemia, Hypo/Hypernatremia, Medication Effect, Metabolic, Other (GI bleed) Progress Results/Orders Orders Procedure Category Date Status Time Iv Lock (Ed Only) EDM 02/03/17 Transmitted 18:30 Cbc W/Auto LAB 02/03/17 Complete Diff-Reflex Manual 18:30 Cmp - Comprehensive LAB 02/03/17 Complete Metabolic 18:30 Normal Saline (Normal PHA 02/03/17 Complete Saline Iv) 18:30 Orthostatic Bp/Pulse EDM 02/03/17 Transmitted 18:30 Packed Cells BBK 02/03/17 In Process Leukoreduced 18:36 Type And Screen BBK 02/03/17 In Process 18:36 Pantoprazole PHA 02/03/17 Complete (Protonix Iv) 19:45 Place In Facility: ED ADM 02/03/17 Transmitted 19:48 Lab Results Laboratory Tests Test 02/03/17 19:02 White Blood Count 7.5T/MM3 Red Blood Count 2.95M/MM3 Hemoglobin 9.4GM/DL Hematocrit 29.4% Mean Corpuscular Volume 99.7UM3 Mean Corpuscular Hemoglobin 31.9UUG Mean Corpuscular Hemoglobin Concent 32.0GM/DL RDW Standard Deviation 51.3FL Platelet Count 157T/MM3 Mean Platelet Volume 12.0UM3 Immature Granulocyte % (Auto) 0.1% Neutrophils (%) (Auto) 74.9% Lymphocytes (%) (Auto) 17.9% Monocytes (%) (Auto) 4.8% Eosinophils (%) (Auto) 1.6% Basophils (%) (Auto) 0.7% Absolute Immature Granulocyte (auto 0.01T/MM3 Absolute Neutrophils (auto) 5.6T/MM3 Absolute Lymphocytes (auto) 1.3T/MM3 Absolute Monocytes (auto) 0.4T/MM3 Absolute Eosinophils (auto) 0.1T/MM3 Absolute Basophils (auto) 0.1T/MM3 Turbidity < 20 Sodium Level 144MEQ/L Potassium Level 4.6MEQ/L Chloride Level 108MEQ/L Carbon Dioxide Level 27MEQ/L Anion Gap 9MEQ/L Blood Urea Nitrogen 50.0MG/DL Creatinine 1.5MG/DL Glomerular Filtration Rate Calc 44 BUN/Creatinine Ratio 33RATIO Glucose Level 105MG/DL Calculated Osmolality 290MOSM/KG Calcium Level 9.4MG/DL Total Bilirubin 0.50MG/DL Icterus Index < 2 Aspartate Amino Transf (AST/SGOT) 23U/L Alanine Aminotransferase (ALT/SGPT) 36U/L Alkaline Phosphatase 70U/L Total Protein 7.1G/DL Albumin 3.9G/DL Globulin 3.2G/DL Albumin/Globulin Ratio 1.2RATIO Chemistry Specimen Hemolysis < 15 Medications Current ED Medications Sodium Chloride (Normal Saline IV) 1,000 ml @ 999 mls/hr Q1H1M ONCE IV Last administered on 02/03/17 19:34; Start 02/03/17 at 18:30; Stop 02/03/17 at 19:30 ; Status DC Pantoprazole Sodium 40 mg 40 mg O ONCE IV Last administered on 02/03/17 19:55 ; Start 02/03/17 at 19:45; Stop 02/03/17 at 19:46; Status DC Lactated Ringer's (Lactated Ringers) 1,000 ml @ 100 mls/hr Q10H IV ; Start at 19:49; Status UNV Progress Progress H is not orthostatic vital signs are been within defined limits in the emergency department. Patient's repeat hemoglobin is 9.4, discussed case with Dr. Orona he will admit inpatient BINH AKBAR MD Feb 03, 2017 18:29
[2017-02-03] MEDS ORDERED: NORMAL SALINE 1,000 ML IV ONE (18:30)
[2017-02-03 19:16] LABS: BASOPHILS # (AUTO) 0.1 T/MM3 (0-0.2); BASOPHILS % (AUTO) 0.7 % (0-2); EOSINOPHILS # (AUTO) 0.1 T/MM3 (0-0.5); EOSINOPHILS % (AUTO) 1.6 % (0-4); HCT - HEMATOCRIT 29.4 % (41-53); HGB - HEMOGLOBIN 9.4 GM/DL (13.5-17.5); IMMATURE GRANULOCYTE # (AUTO) 0.01 T/MM3 (0.00-0.03); IMMATURE GRANULOCYTE % (AUTO) 0.1 % (0.0-0.5); LYMPHOCYTES # (AUTO) 1.3 T/MM3 (1-4.8); LYMPHOCYTES % (AUTO) 17.9 % (23-45); MEAN CORPUSCULAR HGB 31.9 UUG (26-34); MEAN CORPUSCULAR VOLUME 99.7 UM3 (80-100); MONOCYTES # (AUTO) 0.4 T/MM3 (0-0.8); MONOCYTES % (AUTO) 4.8 % (0-9.0); NEUTROPHILS #(AUTO)-ABSOLUTE 5.6 T/MM3 (1.8-7.7); NEUTROPHILS % (AUTO) 74.9 % (33-66); RED BLOOD COUNT 2.95 M/MM3 (4.50-5.90); WBC - WHITE BLOOD COUNT 7.5 T/MM3 (4.5-11.0)
[2017-02-03 19:20] LABS: ALBUMIN 3.9 G/DL (3.5-5.0); ALBUMIN/GLOBULIN RATIO 1.2 RATIO (1.1-2.2); ALKALINE PHOSPHATASE 70 U/L (38-126); ALT (SGPT) 36 U/L (21-72); ANION GAP 9 MEQ/L (5-15); AST (SGOT) 23 U/L (17-59); BUN/CREATININE RATIO 33 RATIO (6-26); CALCIUM 9.4 MG/DL (8.4-10.2); CHLORIDE 108 MEQ/L (98-107); CO2 - CARBON DIOXIDE 27 MEQ/L (22-30); CREATININE 1.5 MG/DL (0.8-1.5); GLOMERULAR FILTRATION RATE 44; GLUCOSE 105 MG/DL (75-110); POTASSIUM 4.6 MEQ/L (3.6-5); SODIUM 144 MEQ/L (134-144); TOTAL PROTEIN 7.1 G/DL (6.3-8.2)
[2017-02-03] MEDS ORDERED: CETI-115 PO (19:28)
[2017-02-03] MEDS ORDERED: RIVA15TA PO (19:29)
[2017-02-03] MEDS ORDERED: FURO20TA4 PO (19:29)
[2017-02-03] MEDS ORDERED: VERA120T11 PO (19:31)
[2017-02-03] MEDS ORDERED: FERR325T40 PO (19:32)
[2017-02-03] MEDS ORDERED: DRON400T2 PO (19:35)
[2017-02-03] MEDS ORDERED: CARV6.252 PO (19:35)
[2017-02-03] MEDS ORDERED: POTA20TA87 PO (19:35)
[2017-02-03] MEDS ORDERED: LACT-294 PO (19:37)
[2017-02-03] MEDS ORDERED: LACT1CAP80 PO (19:37)
[2017-02-03] MEDS ORDERED: DICY20TA11 PO (19:37)
[2017-02-03] MEDS ORDERED: PANTOPRAZOLE 40mg INJECTION IV ONE (19:45)
--- NOTE | 2017-02-03 19:57 | NUR ---
PROVIDER DR AKBAR AT BED SIDE.
[2017-02-03] MEDS ORDERED: ACETAMINOPHEN 325 MG TABLET PO PRN (20:00)
[2017-02-03] MEDS ORDERED: ONDANSETRON 4mg/2ml INJECTION IV PRN ×2 (20:00)
[2017-02-03] MEDS ORDERED: MORPHINE SULFATE 2 MG SYRINGE IV PRN (20:00)
--- OUTSIDE RECORDS SUMMARY | 2017-02-03 20:03 | XMS REPORT | Continuity of Care Document ---
Author Author [facility] Organization [facility] Address Unknown Phone Unavailable Allergies Active Description Code Type Severity Reaction Onset Reported/Identified Relationship to Patient Clinical Status Yes No Known Medication Allergies NKMA N/A N/A 10/06/2015 Medications Problems Date Dx Coded Attending Type Code Diagnosis Diagnosed By 10/26/2015 Mandy Klein MD Admitting A41.81 Sepsis due to Enterococcus 10/26/2015 Mandy Kleni MD Final E78.5 Hyperlipidemia, unspecified 10/26/2015 Mandy Klein MD Final G93.40 Encephalopathy, unspecified 10/26/2015 Mandy Klein MD Final H53.50 Unspecified color vision deficiencies 10/26/2015 Mandy Klein MD Final I10 Essential (primary) hypertension 10/26/2015 Mandy Klein MD 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 Visit Date/Time Discharge Status Pt. Type Provider Facility Loc./Unit Complaint [id number] 10/06/2015 14:59:00 2014 16:04:00 DIS Inpatient Mandy Klein MD [facility] [place] [facility] F4SE Sepsis [id number] 12/04/2015 17:16:00 ACT Inpatient Mandy Klein MD [facility] on [place] [facility] F4SE SEPSIS
--- NOTE | 2017-02-03 20:07 | HPPDOC ---
KEN CALDERON MD 02/03/17 2007: HPI - Adult Date DATE: 02/03/17 TIME: 19:57 General Chief Complaint: dark stools History of Present Illness Exceedingly pleasant 86 year old of the [place] PTER after transfer recommendation from physician in [place] after GI bleed. Had a dark tarry stool last night around [place], maybe 1 recurrnece. Denies abd pain but He actually doesnt remember if he had some abdominal pain with it. He denies fever chills, he denies significant nausea or vomiting he actually says he gained some weight about 20 pounds since his surgery for his colon cancer back in May 2016. (States Dr Fatima was his surgeon.) He takes Xarelto each evening for anticoagulation for atrial fibrillation. He is status post CABG and porcine mitral valve replacement. He uses a cane or walker to get around typically. He denies headache fever chills vomiting shortness of breath. Denies any significant change in the peripheral swelling, he denies syncope or presyncope. Past Medical History Past Medical History 1. Pneumonia 2014 with PICC line antibiotics 1 month 2. Coronary artery disease 3. Atrial fibrillation, status post cardioversion 04/12/16 4. Valvular heart disease 5. Osteoarthritis 6. Dyslipidemia 7. 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 Chronic kidney disease stage 2-3 9. 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 Fatima for colon cancer with laparotomy, lysis of adhesions, mobilization of the splenic flexure, resection of distal transverse colon and descending colon with primary anastomosis. Current Medications Home Meds Reported Medications Dicyclomine HCl (Dicyclomine HCl) 20 Mg Tablet, 20 MG PO BID 02/03/17 Lactose-Reduced Food (Ensure Enlive) 237 Ml Liquid, 237 ML PO DAILY 02/03/17 Lactobacillus Combo No.10 (Probiotic) 1 Each Capsule, 1 CAP PO DAILY 02/03/17 Dronedarone HCl (Multaq) 400 Mg Tablet, 400 MG PO BID 02/03/17 Carvedilol (Carvedilol) 6.25 Mg Tablet, 6.25 MG PO BID 02/03/17 Potassium Chloride (Potassium Chloride) 20 Meq Tab.er.prt, 20 MG PO BID 02/03/17 Ferrous Sulfate (Iron) 325 Mg Tablet, 325 MG PO BIDWM 02/03/17 Verapamil HCl (Verapamil HCl) 120 Mg Tablet, 120 MG PO DAILY 02/03/17 Furosemide (Furosemide) 20 Mg Tablet, 20 MG PO DAILY 02/03/17 Rivaroxaban (Xarelto) 15 Mg Tablet, 15 MG PO WS 02/03/17 Cetirizine HCl (Zyrtec) 10 Mg Tablet, 10 MG PO DAILY 02/03/17 Fluticasone Propionate (Fluticasone Prop 50 mcg/actuation Nasal [place]) 120 [place] /16 G [place], 2 PUFF EA NOSTRIL DAILY Y for PRN ORDERS 06/16/16 Aspirin (Aspir 81) 81 Mg Tablet.dr, 81 MG PO DAILY 06/03/16 Vit C/E/Zn/Coppr/Lutein/Zeaxan (Preservision Areds 2 Softgel) 1 Each Capsule, 1 CAP PO BID 05/09/16 Prednisone (Prednisone) 5 Mg Tablet, 5 MG PO WB 04/20/16 Acetaminophen (Tylenol) 325 Mg Tablet, 325-650 MG PO Q6H Y for PRN ORDERS 04/20/16 Pravastatin Sodium (Pravastatin Sodium) 40 Mg Tablet, 40 MG PO HS 04/20/16 Cholecalciferol (Vitamin D3) (Vitamin D3) 5,000 Unit Tablet, 5000 UNIT PO DAILY 04/20/16 Pantoprazole (Protonix) 40 Mg Tablet.dr, 40 MG PO DAILY 04/14/09 Allergies: Coded Allergies: amoxicillin (Unverified Adverse Reaction, Unknown, NAUSEA, 02/04/17) Family History Family History: Mother with a history of heart problems Sister colon cancer and another sister with breast cancer and jaw cancer. 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 [place] Review of Systems All Other Systems All Other Systems: Reviewed (remainder of 10-point ROS Neg.) Physical Exam General General Nourishment: apparent age General Body Habitus: well groomed Height (Feet): 6 Height (Inches): 1.00 Eyes Brief: FOUND: PERRL Cardiovascular (brief) Cardiac Brief: FOUND: regular rate, regular rhythm, NOT FOUND: pedal edema Abdomen (brief) Abdominal Brief: FOUND: BS normo active x4, soft, tender Comments only mildly diffusely tender Integumentary (brief) Integumentary Brief: FOUND: pink, warm Neurologic (brief) Neurological Brief: FOUND: cranial 2-12 intact, motor, sensory, NOT FOUND: facial droop Neurologic RN Documented GCS Eye Opening: Verbal: Motor: Total: Laboratory Laboratory Tests Test 02/03/17 19:02 White Blood Count 7.5T/MM3 Red Blood Count 2.95M/MM3 Hemoglobin 9.4GM/DL Hematocrit 29.4% Mean Corpuscular Volume 99.7UM3 Mean Corpuscular Hemoglobin 31.9UUG Mean Corpuscular Hemoglobin Concent 32.0GM/DL RDW Standard Deviation 51.3FL Platelet Count 157T/MM3 Mean Platelet Volume 12.0UM3 Immature Granulocyte % (Auto) 0.1% Neutrophils (%) (Auto) 74.9% Lymphocytes (%) (Auto) 17.9% Monocytes (%) (Auto) 4.8% Eosinophils (%) (Auto) 1.6% Basophils (%) (Auto) 0.7% Absolute Immature Granulocyte (auto 0.01T/MM3 Absolute Neutrophils (auto) 5.6T/MM3 Absolute Lymphocytes (auto) 1.3T/MM3 Absolute Monocytes (auto) 0.4T/MM3 Absolute Eosinophils (auto) 0.1T/MM3 Absolute Basophils (auto) 0.1T/MM3 Turbidity < 20 Sodium Level 144MEQ/L Potassium Level 4.6MEQ/L Chloride Level 108MEQ/L Carbon Dioxide Level 27MEQ/L Anion Gap 9MEQ/L Blood Urea Nitrogen 50.0MG/DL Creatinine 1.5MG/DL Glomerular Filtration Rate Calc 44 BUN/Creatinine Ratio 33RATIO Glucose Level 105MG/DL Calculated Osmolality 290MOSM/KG Calcium Level 9.4MG/DL Total Bilirubin 0.50MG/DL Icterus Index < 2 Aspartate Amino Transf (AST/SGOT) 23U/L Alanine Aminotransferase (ALT/SGPT) 36U/L Alkaline Phosphatase 70U/L Total Protein 7.1G/DL Albumin 3.9G/DL Globulin 3.2G/DL Albumin/Globulin Ratio 1.2RATIO Chemistry Specimen Hemolysis < 15 Assessment & Plan Problems: (1) GI bleed Status: Acute Qualifiers: GI bleed type/associated pathology: unspecified gastrointestinal hemorrhage type Qualified Codes: K92.2 - Gastrointestinal hemorrhage, unspecified Assessment & Plan: IV protonix, suspect upper source. Dr Fatima to consult for endoscopy. Could theoreticaly be anastamosis of colon but BUN/Cr ratio high , melena reportedly. Typed and Crossed, no blood given yet (2) Anemia Status: Acute Qualifiers: Other causes of anemia: acute posthemorrhagic Assessment & Plan: NPO for possible EGD in AM, if stable and able to wait for Xarelto to leave system, may be 48-72 hours until gone (with kidney dz maybe a bit longer. He is medically stable forturnatly. Hold ASA. (3) Atrial fibrillation Status: Chronic (4) Coronary artery disease Status: Chronic Qualifiers: Coronary Disease-Associated Artery/Lesion type: bypass graft [place] vs. transplanted heart: [place] heart Associated angina: without angina Qualified Codes: I25.810 - Atherosclerosis of coronary artery bypass graft(s) without angina pectoris (5) Chronic kidney disease, stage 2 (mild) Status: Chronic (6) Current use of steroid medication Assessment & Plan: not sure why he's on this, need to figure out Code Status Full Code, unverified Hospital Course Summary Disclaimer The hospital course summary below is not to be considered part of the above Progress Note. ALINA LEAL MD 02/04/17 6018: Past Medical History Current Medications Home Meds Reported Medications Dicyclomine HCl (Dicyclomine HCl) 20 Mg Tablet, 20 MG PO BID 02/03/17 Lactose-Reduced Food (Ensure Enlive) 237 Ml Liquid, 237 ML PO DAILY 02/03/17 Lactobacillus Combo No.10 (Probiotic) 1 Each Capsule, 1 CAP PO DAILY 02/03/17 Dronedarone HCl (Multaq) 400 Mg Tablet, 400 MG PO BID 02/03/17 Carvedilol (Carvedilol) 6.25 Mg Tablet, 6.25 MG PO BID 02/03/17 Potassium Chloride (Potassium Chloride) 20 Meq Tab.er.prt, 20 MG PO BID 02/03/17 Ferrous Sulfate (Iron) 325 Mg Tablet, 325 MG PO BIDWM 02/03/17 Verapamil HCl (Verapamil HCl) 120 Mg Tablet, 120 MG PO DAILY 02/03/17 Furosemide (Furosemide) 20 Mg Tablet, 20 MG PO DAILY 02/03/17 Rivaroxaban (Xarelto) 15 Mg Tablet, 15 MG PO WS 02/03/17 Cetirizine HCl (Zyrtec) 10 Mg Tablet, 10 MG PO DAILY 02/03/17 Fluticasone Propionate (Fluticasone Prop 50 mcg/actuation Nasal [place]) 120 [place] /16 G [place], 2 PUFF EA NOSTRIL DAILY Y for PRN ORDERS 06/16/16 Aspirin (Aspir 81) 81 Mg Tablet., 81 MG PO DAILY 06/03/16 Vit C/E/Zn/Coppr/Lutein/Zeaxan (Preservision Areds 2 Softgel) 1 Each Capsule, 1 CAP PO BID 05/09/16 Prednisone (Prednisone) 5 Mg Tablet, 5 MG PO WB 04/20/16 Acetaminophen (Tylenol) 325 Mg Tablet, 325-650 MG PO Q6H Y for PRN ORDERS 04/20/16 Pravastatin Sodium (Pravastatin Sodium) 40 Mg Tablet, 40 MG PO HS 04/20/16 Cholecalciferol (Vitamin D3) (Vitamin D3) 5,000 Unit Tablet, 5000 UNIT PO DAILY 04/20/16 Pantoprazole (Protonix) 40 Mg Tablet.dr, 40 MG PO DAILY 04/14/09 Allergies: Coded Allergies: amoxicillin (Unverified Adverse Reaction, Unknown, NAUSEA, 02/04/17) Assessment & Plan Assessment 02/04/2017-Dr. Leal I reviewed the H&P from Dr. Calderon as above. I agree with the medical history, surgical history, medication list, social history, family history and review of systems. The patient states he had some maroon-colored stools. He had some short lasting abdominal pain but that has resolved. He denied any fevers chills or sweats. He denied any shortness of breath or chest pain. He denied any lightheadedness. He denied any palpitations. He has had no further bowel movements since admission. GEN-alert, oriented, no acute distress HEENT-are anicteric, oropharynx is moist NECK-neck is supple CV-regular rate and rhythm with an occasional ectopic beat CHEST-clear to auscultation bilaterally ABD-soft, nontender, nondistended with positive bowel sounds -no Matos EXT-no edema NEURO-no focal deficits SKIN-warm and dry and without rashes Impression and plan GI bleed with history of colon cancer-continue IV PPI, hold Xarelto, repeat hemoglobin now Acute blood loss anemia on chronic anemia-continue to monitor, transfuse if needed, Chronic anticoagulation with Xarelto for atrial fibrillation Paroxysmal atrial fibrillation currently in sinus rhythm on multaq History of porcine aortic versus mitral valve Hypertension-currently blood pressure is mildly elevated, restart Coreg and calcium channel rickey Coronary artery disease-continue Coreg and statin, hold aspirin due to GI bleed History of borderline low B 12 and borderline low iron-recheck iron levels and B -12 Chronic low dose prednisone-the patient does not know why he is on this medication. Mild acute kidney injury-improved with IV fluids Discussed earlier today with Dr. Faitma. We'll plan for EGD and colonoscopy on Monday. Hold Xarelto for now. Restart the patients multaq, Coreg, and calcium channel rickey. DVT Prophylaxis: SCD'S KEN CALDERON MD Feb 03, 2017 20:07 ALINA LEAL MD Feb 04, 2017 18:38
--- NOTE | 2017-02-03 20:38 | NUR ---
ROOM REASSIGNMENT DUE ROOMS NOT AVALUABLE AT TIME OF ADMIT PT REASSIGNED TO SURGICAL RM 108.
--- NOTE | 2017-02-03 21:28 | NUR ---
REPORT REPORT GIVEN TO ALINA CERVANTES.
--- NOTE | 2017-02-03 21:35 | NUR ---
ADMIT PT ADMITTED TO RM 108 FROM ER AT THIS TIME. HE IS WHEELED AND TRANSFERRED WITH ASSIST OF 1. ABLE TO ANSWER ADMISSION QUESTIONS. WILL CONTINUE TO MONITOR.
--- NOTE | 2017-02-03 21:35 | NUR ---
DEPART PT LEFT ER ADMIT TO SURGICAL RM 108 VIA WHEEL CHAIR W/ IV LOCK R AC, ALERT, VS CHARTED AND NO ACUTE DISTRESS W/ SPOUSE ACCOMPANIED PT, PT CARE XFERED TO ALINA CERVANTES.
[2017-02-03 21:45] VITALS: Ht 182.9 cm; Wt 91.7 kg
[2017-02-03 22:02] VITALS: BP 175/87; PULSE 100; RESP 18; TEMP 95.9; O2SAT 98
[2017-02-03] MEDS: SENNA + DOCUSATE TAB PO SCH (23:16)
[2017-02-03] MEDS: LR 1,000 ML IV SCH (23:18)
[2017-02-03 23:21] VITALS: BP 139/85; PULSE 83; RESP 18; TEMP 97.3; O2SAT 92
[2017-02-04] VITALS (7 sets, daily range): BP systolic 147–168; BP diastolic 80–87; PULSE 80–85; RESP 14–92; TEMP 96.3–97.8; O2SAT 92–95
[2017-02-04 05:41] LABS: BASOPHILS # (AUTO) 0.1 T/MM3 (0-0.2); BASOPHILS % (AUTO) 0.6 % (0-2); EOSINOPHILS # (AUTO) 0.3 T/MM3 (0-0.5); EOSINOPHILS % (AUTO) 4.1 % (0-4); HCT - HEMATOCRIT 27.7 % (41-53); IMMATURE GRANULOCYTE # (AUTO) 0.02 T/MM3 (0.00-0.03); IMMATURE GRANULOCYTE % (AUTO) 0.3 % (0.0-0.5); MEAN CORPUSCULAR HGB 31.6 UUG (26-34); MEAN CORPUSCULAR HGB CONC(MCHC 32.5 GM/DL (31-37); MEAN CORPUSCULAR VOLUME 97.2 UM3 (80-100); MEAN PLATELET VOLUME 12.3 UM3 (9.4-12.4); MONOCYTES # (AUTO) 0.8 T/MM3 (0-0.8); MONOCYTES % (AUTO) 10.2 % (0-9.0); NEUTROPHILS #(AUTO)-ABSOLUTE 4.7 T/MM3 (1.8-7.7); NEUTROPHILS % (AUTO) 59.8 % (33-66); RED BLOOD COUNT 2.85 M/MM3 (4.50-5.90); WBC - WHITE BLOOD COUNT 7.9 T/MM3 (4.5-11.0)
[2017-02-04 05:45] LABS: ANION GAP 11 MEQ/L (5-15); BUN/CREATININE RATIO 38 RATIO (6-26); CALCIUM 9.1 MG/DL (8.4-10.2); CHLORIDE 114 MEQ/L (98-107); CO2 - CARBON DIOXIDE 21 MEQ/L (22-30); CREATININE 1.2 MG/DL (0.8-1.5); GLOMERULAR FILTRATION RATE 58; GLUCOSE 90 MG/DL (75-110); POTASSIUM 4.2 MEQ/L (3.6-5); SODIUM 146 MEQ/L (134-144)
[2017-02-04] MEDS: PANTOPRAZOLE 40mg INJECTION IV SCH ×3 (09:00→21:23)
[2017-02-04] MEDS: SENNA + DOCUSATE TAB PO SCH ×2 (11:07→21:23)
[2017-02-04] MEDS: PredniSONE 5 MG TABLET PO SCH (11:07)
--- NOTE | 2017-02-04 11:30 | NUR ---
STONE RITTER VISITED PT. CM EXPLAINED ROLE AND PROVIDED CONTACT INFORMATION. PT PLANS TO RETURN HOME WITH [facility]. PT DENIES NEEDS AT THIS TIME. PT STATES THAT HIS DAUGHTER LIVES CLOSE. PT WILL CONSIDER HOME HEALTH HE HAS HAD IT IN THE PAST. PT IS AWARE TO CONTACT CM IF NEEDS [place].
[2017-02-04] MEDS ORDERED: BISACODYL 5 MG E.C. TABLET PO ONE (12:00)
[2017-02-04] MEDS: LR 1,000 ML IV SCH ×2 (12:05→23:18)
--- NOTE | 2017-02-04 15:21 | CONSF ---
DATE OF CONSULTATION 02/04/2017 HISTORY This patient is 86 years old. This patient was admitted to [facility] on 04/20/2016 with a history of acute gastrointestinal tract bleeding. It was reported at that time that the patient had experienced a maroon bowel movement earlier in the day. The patient was taking Xarelto. The Xarelto was held. Hemoglobin and hematocrit were monitored. The patient did undergo esophagogastroduodenoscopy and total colonoscopy with polypectomy and biopsies and directed submucosal injection of endoscopic marker ink on 04/22/[address] Fatima. No source for acute gastrointestinal tract bleeding was found at esophagogastroduodenoscopy. The patient did have some colon polyps which were removed at the total colonoscopy portion of the procedure. The patient did have a polypoid mass located 45 cm proximal to the anal verge identified at the total colonoscopy procedure. Dr. Fatima did think that this mass had an appearance suspicious for colon carcinoma. Biopsies of the mass were performed. Endoscopic marker ink was injected submucosally at the area of the mass to help with later identification of this segment of colon. The patient did have descending colon diverticulosis and extensive sigmoid colon diverticulosis. It was thought at the conclusion of the procedure that the acute lower gastrointestinal tract bleeding experienced by the patient was due to bleeding from the suspicious mass located 45 cm proximal to the anal verge. A pathology report was returned on specimens submitted from the procedure performed on 04/22/2016. Pathology report diagnosis on biopsies of the polypoid mass located 45 cm proximal to the anal verge was tubulovillous adenoma with low-grade dysplasia. There was no high-grade dysplasia or invasive neoplasm identified at this mass at this time. The patient was dismissed from the hospital on 04/23/2016. Dr. Fatima did continue to have concern about the nature of this polypoid mass located at the descending colon. The patient did undergo flexible sigmoidoscopy with polypectomy on 05/10/2016 for further evaluation of this mass. The mass was removed in piecemeal fashion at the flexible sigmoidoscopy with polypectomy on 05/10/2016. Multiple pieces of the mass were removed in piecemeal fashion. All these pieces were submitted together as a specimen for study by the pathologist. 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 The patient did undergo laparotomy, lysis of intraabdominal adhesions, mobilization of the splenic flexure of the colon, resection of distal transverse colon and descending colon and primary anastomosis on 06/03/[address] Fatima for treatment of this invasive adenocarcinoma at the splenic flexure of the colon. The patient reports today that he has had no further gastrointestinal tract bleeding of any sort since May 2016 up until midnight of 02/02/2017. The patient reports he had been having some intermittent lower abdominal pain for 7-10 days prior to 02/03/2017. The patient states that his bowel movements were normal during this time. He had no blood in his bowel movements during this time. The patient would notice the pain if he would bend over forward. He did not have pain at other times. The patient states he had a bowel movement at midnight on 02/02/2017 and his told him that there was some blood in this. 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 I did speak with the and she states that she noticed a dark-red color to this stool which the patient had at midnight on 02/02/2017. The patient then had two more episodes of loose stools on 02/03/2017. The states that these loose stools had some dark-red color which made her think the patient was having rectal bleeding. The patient notes that his abdominal pain which he had been experiencing for 7-10 days seemed to go away when he had these loose stools. He has not had any further abdominal pain since then. The patient did have the last of these loose stools at around 1400 hours on 02/03/2017. The patient did go up to the [place], [place] family practice office on the afternoon of 02/03/2017 for evaluation. He told the primary care provider about the stools which had a dark-red or maroon color. CBC was checked at the office at [place], [place]. Hemoglobin was 9.4. This was down from the previous hemoglobin of 10.6. Arrangements were then made to transfer the patient to [facility] for admission. The patient was first evaluated at the emergency room at [facility] on the evening of 02/03/2017. The patient was then admitted to [facility] after this. The patient states he does not have any abdominal pain at this time. He states he has had no further bowel movement since admission to [facility]. He has had no further bowel movement since the afternoon of 02/03/2017. The patient does take Xarelto. The patient usually takes Xarelto in the evenings. He states that his last dose of Xarelto was taken on the evening of 02/02/2017. PAST MEDICAL HISTORY PREVIOUS OPERATIONS AND PROCEDURES 1. Back operation in [address] Kamron Mckinnon at [facility] at [place], [place]. 2. Operation at left eye to treat detached retina in [address] Fields at [place], [place]. 3. Right cataract operation in [address] Daily at [place], [place]. 4. Colonoscopy on 10/14/[address] Dwayne Leiva at [place], [place]. Colonic diverticulosis was found at this time. 5. Cardiac catheterization on 01/13/[address] Mandy Klein at [place], [place]. This showed significant three-vessel coronary artery disease as well as critical aortic valve stenosis. 6. Coronary artery bypass operation and porcine tissue aortic valve replacement using a [employer] Epic Supra 22- mm valve on 01/19/[address] Deric Rodríguez at the [facility] at [place], [place]. This was performed for treatment of coronary artery disease and critical aortic valve stenosis. 7. Reexploration of the chest with evacuation of blood clots from the chest on 01/19/[address] Rodríguez at the [facility] at [place], [place]. No active postoperative bleeding was found at this time. A significant amount of accumulated blood clot was found within the chest and this was evacuated. 8. Esophagogastroduodenoscopy and total colonoscopy with polypectomy on 04/20/[address] Fatima at [facility] at [place], [place]. Postoperative diagnoses were acute lower gastrointestinal tract bleeding, anemia due to acute lower gastrointestinal tract blood loss, colonic diverticulosis, transverse colon polyp and normal findings at the upper gastrointestinal tract. At the end of this procedure it was thought that the colonic diverticulosis was the source for the recent acute lower gastrointestinal tract bleeding. Discharge diagnoses for this hospitalization were acute lower gastrointestinal tract bleeding, anemia due to acute lower gastrointestinal tract blood loss, anticoagulated state with Coumadin, colonic diverticulosis, tubular adenoma transverse colon polyp, coronary artery disease, hypertension, hyperlipidemia and depression. 9. Implantation of permanent cardiac pacemaker in August [address] Klein at the [facility] at [place], [place]. 10. Removal of permanent cardiac pacemaker in December [address] Klein at the [facility] at [place], [place]. The pacemaker was removed because the patient had recurrent sepsis from an unknown source. It was thought that there might have been infection at the pacemaker. 11. Implantation of permanent cardiac pacemaker on 03/28/[address] Mandy Klein at the [facility] at [place], [place]. 12. Direct current cardioversion for atrial fibrillation on 04/12/[address] Mandy Klein at the [facility] at [place], [place]. 13. Esophagogastroduodenoscopy and total colonoscopy with polypectomy and biopsies and directed submucosal injection of endoscopic marker ink on 04/22/[address] Fatima at [facility] at [place], [place]. Findings were normal throughout the upper gastrointestinal tract. The patient had some colonic diverticulosis. The patient had a hyperplastic polyp removed from the hepatic flexure. The patient had a tubular adenoma polyp removed from the hepatic flexure. The patient had a tubular adenoma polyp removed from the proximal transverse colon. The patient did have a polypoid mass at the colon 45 cm proximal to the anal verge which is thought to be suspicious in appearance for carcinoma. Biopsies of the mass were performed. These biopsies showed only tubulovillous adenoma with low-grade dysplasia. There was no high-grade dysplasia or invasive neoplasm identified. Discharge diagnoses for this hospitalization were colonic mass, acute GI bleed secondary to colonic mass, acute blood loss anemia secondary to bleeding from colonic mass, atherosclerotic coronary artery disease, chronic atrial fibrillation, iatrogenic coagulopathy with Xarelto and aspirin, osteoarthritis, chronic constipation, dyslipidemia, stage III chronic kidney disease and valvular heart disease. 14. Flexible sigmoidoscopy with polypectomy on 05/10/[address] Fatima at [facility] at [place], [place]. The patient did have a polypoid mass at the descending colon. The mass was completely or nearly completely removed in piecemeal fashion with the electrocautery device and submitted for study by the pathologist. 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 This was the same polypoid mass which had been biopsied at the procedure performed on 04/22/2016. 15. Laparotomy, lysis of intraabdominal adhesions, mobilization of splenic flexure of colon, resection of distal transverse colon and descending colon and primary anastomosis on 06/03/[address] Fatima at [facility] at [place], [place]. Discharge diagnoses for this hospitalization were invasive adenocarcinoma at splenic flexure of colon, intraabdominal adhesions, small superficial capsular tear of the spleen, recent acute lower gastrointestinal tract bleeding from invasive adenocarcinoma at splenic flexure of colon, anemia due to recent acute gastrointestinal tract blood loss and intraoperative blood loss, healthcare-associated right middle lobe and right lower lobe pneumonia, sepsis secondary to pneumonia, hypoxemia, hypokalemia, prolonged postoperative ileus, bibasilar atelectasis, postoperative delirium, descending colon diverticulosis and extensive sigmoid colon diverticulosis, coronary artery disease, paroxysmal atrial fibrillation, stage III chronic kidney disease, hyperlipidemia, osteoarthritis, chronic steroid use, allergic rhinitis and bilateral hearing loss. OTHER PREVIOUS HOSPITALIZATIONS 1. Hospitalized in February 2009 at [facility] at [facility] at [place], [place]. The patient was hospitalized for five days at this time. It sounds as if the patient may have had a pleural effusion at this time. 2. Hospitalized from 06/02/2015 to 06/12/2015 at the [facility] at [place], [place]. The patient was hospitalized at this time for treatment of sepsis, bacterial strep infection, anemia, weakness and pneumonia. 3. Hospitalized from 06/13/2015 to 06/26/2015 at [place], [place]. The patient received intravenous antibiotics through a PICC line during this time for treatment of sepsis. 4. Hospitalized from 06/16/2016 to 07/04/2016 at [facility] at [place], [place]. Discharge diagnoses for this hospitalization were small bowel obstruction, healthcare-associated pneumonia, severe sepsis, abdominal pain, acute encephalopathy, acute respiratory failure with hypoxia, acute kidney injury, stage II chronic kidney disease, coronary artery disease, paroxysmal atrial fibrillation, chronic anticoagulation, anemia, dehydration, somnolence, chest pain, diarrhea, hyperkalemia and colon cancer. OTHER CURRENT MEDICAL PROBLEMS 1. Coronary artery disease. 2. Chronic atrial fibrillation. 3. Stage II or stage III chronic kidney disease. 4. Hyperlipidemia. 5. Allergic rhinitis. 6. Osteoarthritis. 7. Colonic diverticulosis. 8. Chronic prednisone use. 9. Bilateral hearing loss. 10. Anticoagulation with Xarelto. SOCIAL HISTORY The patient lives in [place], [place]. The patient is retired. The patient is . The patient does not smoke cigarettes. PHYSICAL EXAM VITAL SIGNS: Temperature is 97.1 degrees oral. Pulse is 80. Respiratory rate is 14. Blood pressure is 147/84. Oxygen saturation is 95% on room air. ABDOMEN: The abdomen is soft and nontender at this time. The patient does have a midline vertically oriented abdominal incision scar from the operation performed on 06/03/2016. RECTAL EXAM: A digital rectal examination was performed. There is a small amount of brown stool in the rectal vault at this time. No rectal masses. No rectal bleeding at this time. LABORATORY DATA Hemoglobin was 9.4 and hematocrit was 29.4 at 1902 hours on 02/03/2017. Hemoglobin was 9 and hematocrit was 27.7 at 0509 hours on 02/04/2017. IMPRESSION 1. Episode of acute lower gastrointestinal tract bleeding on 02/03/2017. 2. Anticoagulation with Xarelto. 3. Colonic diverticulosis. 4. Chronic prednisone use. 5. Coronary artery disease. 6. Chronic atrial fibrillation. 7. Stage II or stage III chronic kidney disease. 8. Hyperlipidemia. 9. Allergic rhinitis. 10. Osteoarthritis. 11. Bilateral hearing loss. RECOMMENDATIONS 1. Hold Xarelto. 2. Continue to monitor hemoglobin and hematocrit closely. Transfuse as necessary. 3. Start bowel prep at this time in preparation for colonoscopy. 4. Esophagogastroduodenoscopy and colonoscopy to look for source for the acute gastrointestinal tract bleeding after the Xarelto has been held for a couple more days. MTDD
[2017-02-04] MEDS ORDERED: MAGNESIUM CITRATE 296 ML SOLUTION PO ONE (18:30)
[2017-02-04] MEDS ORDERED: FLUTICASONE NASAL SPRAY 50 MCG EA NOSTRIL PRN (18:45)
[2017-02-04] MEDS ORDERED: ACETAMINOPHEN 325 MG TABLET PO PRN (18:45)
[2017-02-04 19:28] LABS: HGB - HEMOGLOBIN 9.5 GM/DL (13.5-17.5)
--- NOTE | 2017-02-04 19:28 | NUR ---
SHIFT SUMMARY PATIENT IS ALERT AND ORIENTED X3. PATIENT VITALS ARE STABLE AND PATIENT IS ON ROOM AIR. PATIENT DENIES CP, NAUSEA, AND SOA. PATIENT IS UP WITH 1X ASSIST, AND GB. PATIENT HAS NOT REQUIRED PRN PO PAIN MEDICATION THIS SHIFT. FAMILY HAS BEEN AT BEDSIDE. WILL CONTINUE TO MONITOR.
[2017-02-04] MEDS ORDERED: DRONEDARONE 400 MG TABLET PO SCH (21:00)
[2017-02-04] MEDS ORDERED: DICYCLOMINE 20 MG TABLET PO SCH (21:00)
[2017-02-04] MEDS ORDERED: CARVEDILOL 6.25 MG TABLET PO SCH (21:00)
[2017-02-04] MEDS: PRAVASTATIN 40 MG TABLET PO SCH (21:41)
[2017-02-05] VITALS (8 sets, daily range): BP systolic 135–166; BP diastolic 68–90; PULSE 80–89; RESP 16–18; TEMP 95.4–97.2; O2SAT 92–97
--- NOTE | 2017-02-05 01:53 | NUR ---
Chart Check 24 hour chart check completed
[2017-02-05 03:45] LABS: BASOPHILS # (AUTO) 0.1 T/MM3 (0-0.2); BASOPHILS % (AUTO) 0.7 % (0-2); EOSINOPHILS # (AUTO) 0.3 T/MM3 (0-0.5); EOSINOPHILS % (AUTO) 3.8 % (0-4); HCT - HEMATOCRIT 28.1 % (41-53); IMMATURE GRANULOCYTE # (AUTO) 0.01 T/MM3 (0.00-0.03); IMMATURE GRANULOCYTE % (AUTO) 0.1 % (0.0-0.5); LYMPHOCYTES # (AUTO) 1.8 T/MM3 (1-4.8); LYMPHOCYTES % (AUTO) 25.5 % (23-45); MEAN CORPUSCULAR HGB 31.6 UUG (26-34); MEAN CORPUSCULAR VOLUME 98.6 UM3 (80-100); MEAN PLATELET VOLUME 11.9 UM3 (9.4-12.4); MONOCYTES # (AUTO) 0.5 T/MM3 (0-0.8); MONOCYTES % (AUTO) 7.5 % (0-9.0); NEUTROPHILS #(AUTO)-ABSOLUTE 4.5 T/MM3 (1.8-7.7); NEUTROPHILS % (AUTO) 62.4 % (33-66); RED BLOOD COUNT 2.85 M/MM3 (4.50-5.90); WBC - WHITE BLOOD COUNT 7.2 T/MM3 (4.5-11.0)
[2017-02-05 03:58] LABS: ANION GAP 9 MEQ/L (5-15); BUN/CREATININE RATIO 24 RATIO (6-26); CHLORIDE 107 MEQ/L (98-107); CO2 - CARBON DIOXIDE 27 MEQ/L (22-30); CREATININE 1.2 MG/DL (0.8-1.5); GLOMERULAR FILTRATION RATE 58; GLUCOSE 94 MG/DL (75-110); POTASSIUM 3.8 MEQ/L (3.6-5); SODIUM 143 MEQ/L (134-144)
--- NOTE | 2017-02-05 04:00 | NUR ---
STATUS PATIENT ALERT AND ORIENTEDX3. CITRATE OF MAGNESIA WAS GIVEN PER DR ORDER. PATIENT AMBULATED TO BATHROOM WITH ONE STANDBY ASSIST. PATIENT HAD 4 TIMES BLACK STOOL AT BATHROOM. ONE INCONTINENT MODERATED AMOUNT OF LIQUID BLOOD STOOL . ON ROOM AIR.DENIES PAIN,CHEST PAIN,SOA,OR N/V. TOLERATED CLEAR LIQUID DIET WELL. VSS.IV RUNNING WELL THROUGH [facility] IV SITE.CONTINUE TO MONITOR.
[2017-02-05] MEDS: CETIRIZINE 10 MG TABLET PO SCH (09:00)
[2017-02-05] MEDS: SENNA + DOCUSATE TAB PO SCH ×2 (09:00→21:42)
[2017-02-05] MEDS: FERROUS SULFATE 324 MG TABLET PO SCH ×2 (09:01→17:45)
[2017-02-05] MEDS: PredniSONE 5 MG TABLET PO SCH (09:01)
[2017-02-05] MEDS: DRONEDARONE 400 MG TABLET PO SCH ×2 (09:01→17:44)
[2017-02-05] MEDS: VERAPAMIL SR 120 MG TABLET PO SCH (09:02)
[2017-02-05] MEDS: CARVEDILOL 6.25 MG TABLET PO SCH ×2 (09:02→17:45)
[2017-02-05] MEDS: DICYCLOMINE 20 MG TABLET PO SCH ×2 (09:02→17:44)
[2017-02-05] MEDS: PANTOPRAZOLE 40mg INJECTION IV SCH ×2 (09:03→21:42)
[2017-02-05] MEDS ORDERED: LIDOCAINE 5% TOP PRN (11:45)
--- NOTE | 2017-02-05 13:58 | PNPDOC ---
SMITH GARCIA V FACILITIES OPERATIONS TECHNICIAN 02/05/17 1351: Subjective Date DATE: 02/05/17 TIME: 13:47 Subjective Mr Garrison is seen today in follow-up while watching television with his at his side. He is alert and oriented and pleasant during examination. He denies having any pain or feeling short of breath. Denies abdominal pain. Is voiding without difficulty. Did have 4 black stool today at noon and one overnight. States that he is getting tired of liquid diet, however, understands the purpose. Hemoglobin is stable at 9.0. Blood pressure 135/68. Objective Vital Signs Vital signs Vital Signs Date Time Temp Pulse Resp B/P Pulse Ox O2 Delivery O2 Flow Rate FiO2 02/05/17 09:21 80 16 02/05/17 09:20 97.2 135/68 93 Room Air Height (Feet): 6 Height (Inches): 0.00 Weight (Kilograms): 91.200 General General Appearance: Alert, Orientated x 3, Cooperative, No Acute Distress Comments [place] Eyes (Brief) Eyes: FOUND: EOMI ENMT (Brief) ENMT: FOUND: mucosa moist, normal dentition, NOT FOUND: pharnyx erythema Neck (Brief) Neck: FOUND: midline, NOT FOUND: adenopathy, carotid bruits, tracheal deviation Respiratory (Brief) Respiratory: FOUND: clear all cervantes, equal bilaterally, NOT FOUND: wheezes Cardiovascular (Brief) Cardiac: FOUND: regular rate, regular rhythm, NOT FOUND: murmur, pedal edema Capillary Refill: <2 sec Abdomen (Brief) Abdominal: FOUND: BS normo active x4, soft, NOT FOUND: distended, tender Lymphatic (Brief) Lymphatic: NOT FOUND: adenopathy Musculoskeletal (Brief) Musculoskeletal: NOT FOUND: tenderness Integumentary (Brief) Integumentary: FOUND: dry, pink, warm Neurologic (Brief) Neurological: FOUND: cranial 2-12 intact Psychiatric (Brief) Psychiatric: FOUND: alert, attentive, normal affect, oriented Laboratory Laboratory Laboratory Tests 02/03/17 19:02 02/04/17 05:09 02/05/17 03:26 Laboratory Tests 02/03/17 19:02 02/04/17 05:09 02/04/17 19:10 02/05/17 03:26 Assessment & Plan Problems: (1) GI bleed Status: Acute Qualifiers: GI bleed type/associated pathology: unspecified gastrointestinal hemorrhage type Qualified Codes: K92.2 - Gastrointestinal hemorrhage, unspecified Assessment & Plan: IV protonix, suspect upper source. Dr Fatima to consult for endoscopy. Could theoreticaly be anastamosis of colon but BUN/Cr ratio high , melena reportedly. Typed and Crossed, no blood given yet (2) Anemia Status: Acute Qualifiers: Other causes of anemia: acute posthemorrhagic Assessment & Plan: NPO for possible EGD in AM, if stable and able to wait for Xarelto to leave system, may be 48-72 hours until gone (with kidney dz maybe a bit longer. He is medically stable forturnatly. Hold ASA. (3) Atrial fibrillation Status: Chronic (4) Coronary artery disease Status: Chronic Qualifiers: Coronary Disease-Associated Artery/Lesion type: bypass graft [place] vs. transplanted heart: [place] heart Associated angina: without angina Qualified Codes: I25.810 - Atherosclerosis of coronary artery bypass graft(s) without angina pectoris (5) Chronic kidney disease, stage 2 (mild) Status: Chronic (6) Current use of steroid medication Assessment & Plan: not sure why he's on this, need to figure out Plan/Intensity of Service 02/05/17 Overall doing well without pain. Abdomen is soft and nontender. Continues to have black stools. Xarelto stopped on admission Hgb stable at 9.0 currently. Will continue to monitor carefully. Bowel prep as per Dr Fatima, Planning for EGD and Colonoscopy tomorrow Iron studies pending Verapamil, Coreg and Multaq cardiac meds. Continue to monitor telemetry and vital signs Recheck CBC tomorrow morning to follow blood counts Code Status Full Code, unverified Hospital Course Summary Disclaimer The hospital course summary below is not to be considered part of the above Progress Note. 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 Mild acute kidney injury-improved with IV fluids Discussed earlier today with Dr. Fatima. We'll plan for EGD and colonoscopy on Monday. Hold Xarelto for now. Restart the patients multaq, Coreg, and calcium channel rickey. 02/05/17 Overall doing well without pain. Abdomen is soft and nontender. Continues to have black stools. Xarelto stopped on admission Hgb stable at 9.0 currently. Will continue to monitor carefully. Bowel prep as per Dr Fatima, Planning for EGD and Colonoscopy tomorrow Iron studies pending Verapamil, Coreg and Multaq cardiac meds. Continue to monitor telemetry and vital signs Recheck CBC tomorrow morning to follow blood counts ALINA LEAL MD 02/05/17 1917: Assessment & Plan Assessment 02/05/2017-I reviewed this chart, the patient history, and the FACILITIES OPERATIONS TECHNICIAN's/PA's documented findings as above. We discussed and formulated the assessment and plan as above with the additions below.-Dr. Leal The patient was seen today accompanied by his . He states he's doing well. He is tolerating his bowel prep without difficulties. He denies any abdominal pain. He denies any shortness of breath or chest pain. On exam he is alert and in no acute distress. Chest is clear to auscultation. Cardiovascular reveals a regular rate and rhythm. Abdomen is soft and nontender. Extremities are free of edema. Continue to monitor hemoglobin. BUN is decreasing and patient is cardiovascularly stable which is a good sign that acute GI bleed has stopped. Plan for EGD and colonoscopy tomorrow. Continue off of Xarelto which she is on for atrial fibrillation DVT Prophylaxis: SCD'S SMITH GARCIA APRN Feb 05, 2017 13:51 ALINA LEAL MD Feb 05, 2017 19:17
[2017-02-05] MEDS ORDERED: POLYETHYL.GLYCOL 3350 BOTTLE 238 GM PO ONE (15:00)
--- NOTE | 2017-02-05 18:10 | NUR ---
PROGRESS NOTE PT ALERT AND ORIENTED X3. VITAL SIGNS STABLE, ON RA WITH SLIGHTLY ELEVATED BLOOD PRESSURES. PT IS RESTING IN BED AT THIS TIME, PT HAS BEEN UP TO THE RECLINER FOR THE MAJORITY OF THIS SHIFT. THE PT IS A X1 STAND BY ASSIST AND WALKS TO AND FROM THE BATHROOM. THE PT HAS HAD ADEQUATE URINE OUTPUT AND HAS HAD MULTIPLE BLACK, LOOSE STOOLS THIS SHIFT. PT WAS GIVEN MIRALAX 238GM BOTTLE WITH 2 GATORADES THIS AFTERNOON AT 1500. PT WAS ABLE TO COMPLETE THE BOWEL PREP BY PO INTAKE WITHIN THE GIVEN TIME AND NO NG TUBE WAS NEEDED. THE PT CONTINUES TO HAVE LOOSE, BLACK STOOLS THAT ARE GETTING SUPPORT SERVICE TECH. THE PT HAS HIS IN THE ROOM, CALL LIGHT WITHIN REACH, BED ALARM ACTIVATED. WILL CONTINUE TO MONITOR. MORNING LABS ARE ORDERED AT THE EGD IS SCHEDULED FOR MONDAY.
--- NOTE | 2017-02-05 18:38 | PNF ---
DATE 02/05/17 HISTORY The patient was given some Dulcolax tablets and some magnesium citrate yesterday. Nurses report that the patient had formed bowel movements followed by loose bowel movements throughout the night last night. The stool had a black color. The patient is not have any abdominal pain. He is not having any bright red or dark red bleeding from the rectum. PHYSICAL EXAMINATION VITAL SIGNS: Temperature is 97.2 degrees oral. Pulse is 80. Respiratory rate is 16. Blood pressure is 135/68. Oxygen saturation is 93% on room air. ABDOMEN: Soft and nontender.. LABORATORY DATA Hemoglobin was 9.5 at 1910 hours yesterday. Hemoglobin is 9 and hematocrit is 28.1 this morning. White blood cell count is 7200. IMPRESSION 1. Episode of acute lower gastrointestinal tract bleeding on 02/03/17. 2. Recent anticoagulation with Xarelto. 3. Colonic diverticulosis. 4. Chronic prednisone use. PLAN 1. Continue to hold Xarelto. 2. Colonic lavage bowel prep today. 3. Continue to monitor hemoglobin and hematocrit. 4. Esophagogastroduodenoscopy and colonoscopy tomorrow to look for source for acute gastrointestinal tract bleeding. [facility]
[2017-02-05] MEDS: PRAVASTATIN 40 MG TABLET PO SCH (21:42)
--- NOTE | 2017-02-05 23:49 | NUR ---
Chart Check 24 hour chart check completed
[2017-02-06] VITALS (23 sets, daily range): BP systolic 118–182; BP diastolic 63–92; PULSE 79–95; RESP 14–18; TEMP 95.8–98.3; O2SAT 91–100
[2017-02-06 02:27] LABS: IRON 32 UG/DL (49-181)
[2017-02-06 03:17] LABS: VITAMIN B12 - BATCH 294 PG/ML (239-931)
[2017-02-06] MEDS ORDERED: FLEET PHOSPHO-SODA 133 ML ENEMA RECTALLY PRN ×2 (05:00→09:00)
[2017-02-06 05:27] LABS: BASOPHILS # (AUTO) 0.1 T/MM3 (0-0.2); BASOPHILS % (AUTO) 0.8 % (0-2); EOSINOPHILS # (AUTO) 0.3 T/MM3 (0-0.5); EOSINOPHILS % (AUTO) 4.6 % (0-4); HCT - HEMATOCRIT 27.5 % (41-53); HGB - HEMOGLOBIN 8.7 GM/DL (13.5-17.5); IMMATURE GRANULOCYTE # (AUTO) 0.01 T/MM3 (0.00-0.03); IMMATURE GRANULOCYTE % (AUTO) 0.2 % (0.0-0.5); LYMPHOCYTES # (AUTO) 1.6 T/MM3 (1-4.8); LYMPHOCYTES % (AUTO) 23.7 % (23-45); MEAN CORPUSCULAR HGB 31.4 UUG (26-34); MEAN CORPUSCULAR HGB CONC(MCHC 31.6 GM/DL (31-37); MEAN CORPUSCULAR VOLUME 99.3 UM3 (80-100); MEAN PLATELET VOLUME 12.2 UM3 (9.4-12.4); MONOCYTES # (AUTO) 0.7 T/MM3 (0-0.8); NEUTROPHILS % (AUTO) 60.7 % (33-66); RED BLOOD COUNT 2.77 M/MM3 (4.50-5.90); WBC - WHITE BLOOD COUNT 6.6 T/MM3 (4.5-11.0)
[2017-02-06 05:35] LABS: ANION GAP 9 MEQ/L (5-15); BUN/CREATININE RATIO 15 RATIO (6-26); CALCIUM 8.7 MG/DL (8.4-10.2); CHLORIDE 106 MEQ/L (98-107); CO2 - CARBON DIOXIDE 27 MEQ/L (22-30); CREATININE 1.2 MG/DL (0.8-1.5); GLOMERULAR FILTRATION RATE 58; GLUCOSE 94 MG/DL (75-110); POTASSIUM 3.6 MEQ/L (3.6-5); SODIUM 142 MEQ/L (134-144)
[2017-02-06] MEDS: DICYCLOMINE 20 MG TABLET PO SCH ×2 (06:08→16:59)
--- NOTE | 2017-02-06 06:40 | NUR ---
STATUS PATIENT ALERT AND ORIENTEDX3. ON ROOM AIR .PATIENT HAD THREE BMS DURING SHIFT. PATIENT HAD A SMALL AMOUNT OF LIQUID , SOFT [place] STOOL AT 0458.PRN FLEET ENEMA SALINE WAS GIVEN. PATIENT IS RESTING IN BED QUIETLY AT THIS TIME. DENIES PAIN, CHEST PAIN, SOA,OR N/V. BED ALARM ON. SCDS WAS USED AT BOTH LOW EXTREMITIES. NPO EXCEPT FOR MEDS. PATIENT UP TO BATHROOM BY CANE WITH ONE STANDBY ASSIST.CONTINUE TO MONITOR.
[2017-02-06] MEDS ORDERED: CYANOCOBALAMIN (B-12) 1000mcg/ml INJECTION SQ SCH (09:00)
[2017-02-06] MEDS: SENNA + DOCUSATE TAB PO SCH (09:00)
[2017-02-06] MEDS: CETIRIZINE 10 MG TABLET PO SCH (09:00)
[2017-02-06] MEDS: FERROUS SULFATE 324 MG TABLET PO SCH ×2 (09:39→16:59)
[2017-02-06] MEDS: DRONEDARONE 400 MG TABLET PO SCH ×2 (09:39→16:58)
[2017-02-06] MEDS: PANTOPRAZOLE 40mg INJECTION IV SCH (09:39)
[2017-02-06] MEDS: VERAPAMIL SR 120 MG TABLET PO SCH (09:39)
[2017-02-06] MEDS: LR 1,000 ML IV SCH ×2 (09:40→16:59)
[2017-02-06] MEDS: CARVEDILOL 6.25 MG TABLET PO SCH ×2 (09:40→16:59)
--- NOTE | 2017-02-06 13:04 | NUR ---
LEFT FLOOR PT LEFT THE FLOOR AT THIS TIME, ACCOMPANIED BY PRE-OP STAFF AND FAMILY. NO CONCERNS NOTED AT THIS TIME.
--- NOTE | 2017-02-06 13:33 | ANESPREOP ---
Anesthesia Record Date and Time DATE: 02/06/17 TIME: 13:21 Proposed Surgical Procedure Allergies: Coded Allergies: amoxicillin (Unverified Adverse Reaction, Unknown, NAUSEA, 02/04/17) Ht/Wt/BMI Height: 6 ' 0.00 " Weight: 91.700 kg BMI: 27.1 kg/m2 Vital Signs Date Time Temp Pulse Resp B/P Pulse Ox O2 Delivery O2 Flow Rate FiO2 02/06/17 13:09 98.1 88 16 153/74 94 Room Air Medications Inpatient Medications Current Medications Medications (Trade) Dose Ordered Sig/Jocelin Start Time Stop Time Status Last Admin Dose Admin Ondansetron HCl (Zofran) 4 mg Q6H PRN 02/03/17 20:00 Senna/Docusate Sodium 1 tab 1 tab BID 02/03/17 21:00 02/05/17 21:42 1 TAB Lactated Ringer's (Lactated Ringers) 1,000 ml @ 75 mls/hr [id number] 02/03/17 19:49 Future hold 02/06/17 09:40 75 MLS/HR Acetaminophen (Tylenol Regular Strength) 650 mg Q4HR PRN 02/03/17 20:00 Morphine Sulfate (Morphine) 2 mg Q2H PRN 02/03/17 20:00 Ondansetron HCl (Zofran) 4 mg Q6H PRN 02/03/17 20:00 UNV Pantoprazole Sodium (Protonix Iv) 40 mg BID 02/04/17 08:00 02/06/17 09:39 40 MG Prednisone (PredniSONE) 5 mg WB 02/04/17 08:00 02/05/17 09:01 5 MG Acetaminophen (Tylenol Regular Strength) As above Q6H PRN 02/04/17 18:45 Carvedilol (Coreg) 6.25 mg BID 02/04/17 21:00 02/05/17 06:01 DC 02/04/17 21:32 6.25 MG Cetirizine HCl (Zyrtec) 10 mg DAILY 02/05/17 09:00 02/05/17 09:00 10 MG Dicyclomine HCl (Bentyl) 20 mg BID 02/04/17 21:00 02/05/17 06:01 DC 02/04/17 21:31 20 MG Dronedarone (Multaq) 400 mg BID 02/04/17 21:00 02/05/17 06:01 DC 02/04/17 21:31 400 MG Ferrous Sulfate (Feosol) 324 mg BIDWM 02/05/17 08:00 02/06/17 09:39 324 MG Fluticasone Propionate (Flonase) 1 spray DAILY PRN 02/04/17 18:45 Pravastatin Sodium (Pravachol) 40 mg HS 02/04/17 22:00 02/05/17 21:42 40 MG Verapamil HCl (Calan Sr) 120 mg DAILY 02/05/17 09:00 02/06/17 09:39 120 MG Carvedilol (Coreg) 6.25 mg BIDWM 02/05/17 08:00 02/06/17 09:40 6.25 MG Dicyclomine HCl (Bentyl) 20 mg ACBID 02/05/17 07:30 02/06/17 06:08 20 MG Dronedarone (Multaq) 400 mg BIDWM 02/05/17 08:00 02/06/17 09:39 400 MG Lidocaine (Xylocaine 5% Cr) 1 applic PRN PRN 02/05/17 11:45 Sodium Biphosphate/ Sodium Phosphate (Fleet Enema Saline) 1 enema PRN PRN 02/06/17 05:00 02/06/17 06:37 1 ENEMA Cyanocobalamin (Vit. B-12) 1,000 mcg DAILY 02/06/17 09:00 02/06/17 12:31 1,000 MCG Sodium Biphosphate/ Sodium Phosphate (Fleet Enema Saline) 1 enema PRN PRN 02/06/17 09:00 02/06/17 09:40 1 ENEMA Acetaminophen (Tylenol) 325 Mg Tablet, 325-650 MG PO Q6H PRN for PRN ORDERS, ( Reported) Last Taken: on Unknown Date & Time Aspirin (Aspir 81) 81 Mg Tablet.dr, 81 MG PO DAILY, (Reported) Last Taken: on 02/03/17 0800 Carvedilol (Carvedilol) 6.25 Mg Tablet, 6.25 MG PO BID, (Reported) Last Taken: on 02/03/17 0800 Cetirizine HCl (Zyrtec) 10 Mg Tablet, 10 MG PO DAILY, (Reported) Last Taken: on 02/03/17 0800 Cholecalciferol (Vitamin D3) (Vitamin D3) 5, 000 Unit Tablet, 5,000 UNIT PO DAILY, (Reported) Last Taken: on 02/03/17 08 Dicyclomine HCl (Dicyclomine HCl) 20 Mg Tablet , 20 MG PO BID, (Reported) Last Taken: on 02/03/17 08 Dronedarone HCl (Multaq) 400 Mg Tablet, 400 MG PO BID, (Reported) Last Taken: on 02/03/17 08 Ferrous Sulfate (Iron) 325 Mg Tablet, 325 MG PO BIDWM, (Reported) Last Taken: on 02/03/17 08 Fluticasone Propionate (Fluticasone Prop 50 mcg /actuation Nasal [place]) 120 [place]/16 G [place], 2 PUFF EA NOSTRIL DAILY PRN for PRN ORDERS, (Reported) Last Taken: on 02/02/171999 Furosemide (Furosemide) 20 Mg Tablet, 20 MG PO DAILY, (Reported) Last Taken: on 02/03/17799 Lactobacillus Combo No.10 (Probiotic) 1 Each Capsule, 1 CAP PO DAILY, (Reported) Last Taken: on 02/03/17799 Lactose-Reduced Food (Ensure Enlive) 237 Ml Liquid, 237 ML PO DAILY, (Reported) Last Taken: on 02/03/17 08 Pantoprazole (Protonix) 40 Mg Tablet.dr, 40 MG PO DAILY, (Reported) Last Taken: on 02/03/17799 Potassium Chloride (Potassium Chloride) 20 Meq Tab.er.prt, 20 MG PO BID, (Reported) Last Taken: on 02/03/17 08 Pravastatin Sodium (Pravastatin Sodium) 40 Mg Tablet, 40 MG PO HS, (Reported) Last Taken: on 02/02/171999 Prednisone (Prednisone) 5 Mg Tablet, 5 MG PO WB , (Reported) Last Taken: on 02/03/17 08 Rivaroxaban (Xarelto) 15 Mg Tablet, 15 MG PO WS , (Reported) Last Taken: on 02/02/17 1700 Verapamil HCl (Verapamil HCl) 120 Mg Tablet, 120 MG PO DAILY, (Reported) Last Taken: on 02/03/17 08 Vit C/E/Zn/Coppr/Lutein/Zeaxan (Preservision Areds 2 Softgel) 1 Each Capsule, 1 CAP PO BID, (Reported) Last Taken: on 02/03/17 0800 Currently on Beta Cintia: Yes Medical/Surgical History Anesthesia PMH: Reports: *Dyspnea (AT TIMES), *Hypertension, Arthritis, CHF, Cancer (SKIN CA-REMOVED, COLON CA), Cardiac Arrythmia (Afib), Hyperlipidemia, Pacemaker, Pneumonia (HX 05/2015 PER H&P), Reflux, Sleep Apnea, Denies: *Angina , *Diabetes, *VA, Anesthesia Reactions (NO AIRWAY ISSUES KNOWN), Asthma, Blood Transfusion Reac, COPD, CVA/Stroke/TIA, Clotting Problems (ON XARELTO), Deep Vein Thrombosis, Glaucoma, Hepatitis, Hiatal Hernia, Malignant Hyperthermia, Renal Disease, Seizures, Thyroid Disease, Tuberculosis Smoking Status: Former smoker (quit 10 years ago had smoked since age 15) Has pt. smoked today?: No # of Packs per Day: 1-2 # of Years: 60 Use Chewing Tobacco?: No Substance Use Type: does not use Substance last used: hours (ago) (8) Alcohol Intake: none Past Surgical History Orthopedic Surgeries: Yes - back surgery approx 40 yrs ago Abdominal Surgeries: Yes - COLON RESECTION Genitourinary Surgeries: No Cardiac Surgeries: Yes - PACEMAKER, CABG, AORTIC VALVE REPLACEMENT, HEART CATH, CARDIOVERSION Endocrine Surgeries: Reproductive Surgeries: Neurological Surgeries: Yes - BACK SURGERY Ear Surgeries: Nose Surgeries: Throat Surgeries: Yes - EGD Other Surgeries: Yes - L DETACHED RETINA, COLONOSCOPY, R CATARACT, FLEX SIG Anesthesia Adverse Reactions: FOUND none Family Hx of Anesthesia Advers: none Hx of Motion Sickness: No Pertinent Findings Laboratory Tests 02/06/17 04:32 Physical Exam Respiratory: Bilat breath sounds equal, Lungs clear Cardiovascular: FOUND Regular rate, rhythm, FOUND Extra beats, FOUND Pacemaker Airway Assessment Mallampati Score: II TMD: 3 Fingerbreadths Neck Extension: Fair Teeth: Upper Dentures Overall Assessment: No Airway Concerns ASA: 3 Plan Anesthesia Plan: TIVA Discussion Discussed risks/options/alternatives of anesthesia and questions answered. Patient consents. Nursing pain assessment noted. Attestation Statement Prior to the delivery of any anesthetic medication, I examined the patient, developed the plan, obtained the patient's consent and discussed the risk and benefits of the procedure with the patient/guardian. HOA DUVAL CRNA Feb 06, 2017 13:24
[2017-02-06] MEDS ORDERED: PROPOFOL 500mg 50 ML IV ONE (13:40)
[2017-02-06] MEDS ORDERED: BENZOCAINE 20% Top. Anesth. SPRAY UD ONE (13:40)
[2017-02-06] MEDS ORDERED: LIDOCAINE VISCOUS 2% Oral Soln 15ml UD ONE (13:41)
[2017-02-06] MEDS ORDERED: SALINE FLUSH 10ml SYRINGE ONE (14:15)
[2017-02-06] MEDS ORDERED: PHENYLEPHRINE 10mg/ml INJECTION ONE (14:16)
--- NOTE | 2017-02-06 14:30 | NUR ---
CM THIS WORKER ATTEMPTED TO MEET WITH PT. PT WAS IN PROCEDURE AT THIS TIME. CONTACT CARD LEFT IN PT'S ROOM AND NAME WRITTEN ON WHITEBOARD IN ROOM. CASE MANAGEMENT WILL CONTINUE TO FOLLOW AND ASSIST IN DISCHARGE PLANNING.
--- NOTE | 2017-02-06 14:43 | GSPOSTPROC ---
Immediate Operative Note DATE: 02/06/17 TIME: 14:42 Postop Diagnosis: GI tract bleeding,colon polyps Surgical Procedure: EGD, C-scope w/Polypectomy Surgeon: Kushal ASA: 3 INES LUCIO MD Feb 06, 2017 14:43
--- NOTE | 2017-02-06 15:20 | NUR ---
Return Pt returned to floor at this time. Pt ambulated self from cart to bed x2 assist. Will continue to monitor.
[2017-02-06] MEDS: PredniSONE 5 MG TABLET PO SCH (15:37)
--- NOTE | 2017-02-06 17:33 | OPNOTEF ---
DATE OF OPERATION 02/06/2017 PREOPERATIVE DIAGNOSES 1. Episode of acute lower gastrointestinal tract bleeding on 02/03/2017. 2. Recent anticoagulation with Xarelto. 3. Personal history of colon adenocarcinoma. 4. Status post laparotomy with resection of distal transverse colon and descending colon with primary anastomosis on 06/03/2016. 5. Personal history of adenomatous colon polyps. 6. Colonic diverticulosis with extensive sigmoid colon diverticulosis. 7. Internal and external hemorrhoids. POSTOPERATIVE DIAGNOSES 1. Episode of acute lower gastrointestinal tract bleeding on 02/03/2017. 2. Recent anticoagulation with Xarelto. 3. Personal history of colon adenocarcinoma. 4. Status post laparotomy with resection of distal transverse colon and descending colon and primary anastomosis on 06/03/2016. 5. Personal history of adenomatous colon polyps. 6. Colonic diverticulosis with extensive sigmoid colon diverticulosis. 7. Prominent internal and external hemorrhoids. 8. Chronic gastritis. 9. Colon polyps. OPERATION Esophagogastroduodenoscopy and total colonoscopy with polypectomy SURGEON Dr. Fatima ANESTHESIA TIVA ASA Class 3 FINDINGS The esophagus appeared completely normal. The duodenum appeared completely normal. There was some chronic gastritis at the stomach. There no gastric ulcers or erosions. No bright red blood or old blood was seen anywhere at the upper gastrointestinal tract. No source for bleeding which would lead to melena was found at the upper gastrointestinal tract. There was no evidence of any recent upper gastrointestinal tract bleeding. There were no colon or rectal tumors. The patient did have postoperative changes from the previous resection of distal transverse colon and descending colon with primary anastomosis operation. The patient did have multiple colon polyps. The patient had three ascending colon polyps. The patient had two cecal polyps. The patient had another polyp located 55 cm proximal to the anal verge. There were no rectal polyps. There were no colonic angiodysplasia lesions. There was no evidence of any inflammatory bowel disease. There was no evidence of any ischemic colitis. There was no evidence of any inflammation at the colon. The patient does have colonic diverticulosis with extensive sigmoid colon diverticulosis. The patient has some prominent internal and external hemorrhoids. No bright red blood or old blood was seen at the colon or rectum at the time of the procedure today. There was no active bleeding anywhere from the colon or rectum. It was thought at the conclusion of the operation that the recent acute episode of lower gastrointestinal tract bleeding was probably bleeding from one of the colonic diverticula. It was thought that any hematochezia experienced by the patient during the bowel prep for this colonoscopy procedure was probably just due to some bleeding from internal hemorrhoids. DESCRIPTION OF OPERATION The patient was brought to the endoscopy room. The patient was placed on a cart in the endoscopy room. Topical anesthesia was achieved at the oropharynx in the usual manner. The patient was placed in left lateral recumbent position on the cart. The patient was premedicated with intravenous sedation medication administered by the nurse mobile health vehicle operator. The Olympus upper GI endoscope was used. The upper GI endoscope was introduced into the esophagus. The upper GI endoscope was advanced down through the esophagus and stomach and into the duodenum. The upper GI endoscope was then withdrawn from the duodenum back into the stomach. The upper GI endoscope was retroflexed and the gastroesophageal junction was viewed from below. The upper GI endoscope was straightened out. Stomach was examined further. The endoscopic biopsy forceps was used to obtain a sample of prepyloric antral gastric mucosa which was submitted for MAURILIO-test studies. The upper GI endoscope was then withdrawn out through the stomach and esophagus and removed from the patient. The patient was kept in left lateral recumbent position on the cart in the endoscopy room. The patient continued to receive intravenous sedation medication administered by the nurse mobile health vehicle operator. Total colonoscopy was performed. The Olympus colonoscope was used. The colonoscope was introduced into the rectum. The colonoscope was advanced up through the rectum and colon all the way up to the cecum. The appendiceal orifice was visualized. The ileocecal valve was visualized. The patient had two polyps at the cecum. One of these polyps was removed with the electrocautery snare device and retrieved and submitted as a specimen for study by the pathologist. The other polyp at the cecum was a small polyp which was removed with a couple of bites of the cold endoscopic biopsy forceps and submitted as a specimen for study by the pathologist. The colonoscope was withdrawn out through the colon. The patient did have three ascending colon polyps. All three of these polyps were removed with the electrocautery snare device. Two of the polyps were retrieved and submitted as a specimen for study by the pathologist. The third polyp at the ascending colon was destroyed by coagulation during removal and a specimen for this third descending colon polyp was not retrieved to be submitted for study by the pathologist. The colonoscope was withdrawn further out through the colon. The polyp located 55 cm proximal to the anal verge was identified. This polyp was removed with the electrocautery snare device and retrieved and submitted as a specimen for study by the pathologist. The colonoscope was withdrawn the remainder of the way out through the colon and rectum and removed from the patient. Digital rectal examination was performed. Findings throughout the procedure were as described above. The patient did continue to receive intravenous sedation medication administered by the nurse mobile health vehicle operator throughout the operation. The patient did tolerate the operation well. SORIN
[2017-02-06] MEDS ORDERED: CYAN10009 PO (18:21)
--- NOTE | 2017-02-06 18:39 | ANESPO ---
Post-Op Note Date 02/06/17 Time: 15:00 Status Pt Participated in Evaluation: Pt participated in person Vital Signs Date Time Temp Pulse Resp B/P Pulse Ox O2 Delivery O2 Flow Rate FiO2 02/06/17 17:09 81 16 133/69 95 Room Air 02/06/17 15:24 95.8 02/06/17 14:55 3.00 Respiratory Function: Airway patent Cardiovascular Function: Regular pulse Mental Status: Alert/oriented Pain Level Intensity: 0 Unable to Assess Pain Due To: Pt Sleeping Hydration: Taking po fluids Complications during Recovery None apparent Follow-Up Instructions Instructions Per Surgeon HOA DUVAL CRNA Feb 06, 2017 18:39
--- NOTE | 2017-02-06 19:00 | NUR ---
DISCHARGE NURSING NOTE PT WAS DISCHARGED FROM THE HOSPITAL AT THIS TIME, ACCOMPANIED BY HIS , VIA WHEELCHAIR AND EMERGENCY ROOM ENTRANCE. ALERT AND ORIENTED X3. VITAL SIGNS STABLE, ON RA. THIS RN WENT OVER DISCHARGE PAPERWORK WITH THE PT AND HIS , INCLUDING DISCHARGE DIET, ACTIVITY, MEDICATIONS AND FOLLOW-UP APPOINTMENTS, PT AND VERBALIZED UNDERSTANDING. A COPY OF THE SCRIPT WAS PLACED IN THE PT'S CHART AND THE ORIGINAL WAS SENT WITH THE PT. IV WAS DCD, AND THE PT'S IDENTIFICATION BANDS WERE REMOVED. NO CONCERNS NOTED AT THIS TIME. AL BELONGINGS SENT WITH PT AT DISCHARGE.
--- NOTE | 2017-02-06 21:29 | DSPDOC ---
General Date Date DATE: 02/06/17 TIME: 21:16 Attending Physician Neisha Leal MD Admitting Physician Neisha Leal MD Consulting Physician Bulmaro Lucio MD Admitting Diagnosis acute GI bleed Discharge Diagnosis GI bleed Acute blood loss anemia Paroxysmal atrial fibrillation Coronary artery disease Chronic kidney disease stage II Chronic steroid use-for uncertain reason Colonoscopy showing multiple diverticuli and 5 or 6 polyps but no active bleeding EGD was essentially normal other than some minimal gastritis-no source for bleeding seen on EGD Low serum iron, TIBC and percent saturation are pending Borderline low B 12-oral B 12 started Procedures EGD by Dr. Lucio by verbal report shows mild gastritis but no source for GI bleed Colonoscopy showed several polyps which were biopsied. Also seen was multiple diverticuli. No active bleeding seen. Positive hemorrhoids. Laboratory Item Value Date Time Vitamin B12 Level 294 PG/ML 02/05/17325 Iron Level 32 UG/DL L 02/05/17 0326 Laboratory Tests Test 02/06/17 04:32 White Blood Count 6.6T/MM3 (4.5-11.0) Red Blood Count 2.77M/MM3 (4.50-5.90) Hemoglobin 8.7GM/DL (13.5-17.5) Hematocrit 27.5% (41-53) Mean Corpuscular Volume 99.3UM3 (80-100) Mean Corpuscular Hemoglobin 31.4UUG (26-34) Mean Corpuscular Hemoglobin Concent 31.6GM/DL (31-37) RDW Standard Deviation 49.2FL (36.9-50.2) Platelet Count 147T/MM3 (130-400) Mean Platelet Volume 12.2UM3 (9.4-12.4) Immature Granulocyte % (Auto) 0.2% (0.0-0.5) Neutrophils (%) (Auto) 60.7% (33-66) Lymphocytes (%) (Auto) 23.7% (23-45) Monocytes (%) (Auto) 10.0% (0-9.0) Eosinophils (%) (Auto) 4.6% (0-4) Basophils (%) (Auto) 0.8% (0-2) Absolute Immature Granulocyte (auto 0.01T/MM3 (0.00-0.03) Absolute Neutrophils (auto) 4.0T/MM3 (1.8-7.7) Absolute Lymphocytes (auto) 1.6T/MM3 (1-4.8) Absolute Monocytes (auto) 0.7T/MM3 (0-0.8) Absolute Eosinophils (auto) 0.3T/MM3 (0-0.5) Absolute Basophils (auto) 0.1T/MM3 (0-0.2) Turbidity < 20 (0-20) Sodium Level 142MEQ/L (134-144) Potassium Level 3.6MEQ/L (3.6-5) Chloride Level 106MEQ/L (98-107) Carbon Dioxide Level 27MEQ/L (22-30) Anion Gap 9MEQ/L (5-15) Blood Urea Nitrogen 18.0MG/DL (9-20) Creatinine 1.2MG/DL (0.8-1.5) Glomerular Filtration Rate Calc 58 BUN/Creatinine Ratio 15RATIO (6-26) Glucose Level 94MG/DL (75-110) Calculated Osmolality 275MOSM/KG (261-280) Calcium Level 8.7MG/DL (8.4-10.2) Icterus Index < 2 (0-7) Chemistry Specimen Hemolysis < 15 (0-25) Microbiology none Radiology none History of Present Illness Exceedingly pleasant 86 year old of the [place] PTER after transfer recommendation from physician in [place] after GI bleed. Had a dark tarry stool last night around [place], maybe 1 recurrnece. Denies abd pain but He actually doesnt remember if he had some abdominal pain with it. He denies fever chills, he denies significant nausea or vomiting he actually says he gained some weight about 20 pounds since his surgery for his colon cancer back in May 2016. (States Dr Lucio was his surgeon.) He takes Xarelto each evening for anticoagulation for atrial fibrillation. He is status post CABG and porcine mitral valve replacement. He uses a cane or walker to get around typically. He denies headache fever chills vomiting shortness of breath. Denies any significant change in the peripheral swelling, he denies syncope or presyncope. 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 Mild acute kidney injury-improved with IV fluids Discussed earlier today with Dr. Lucio. We'll plan for EGD and colonoscopy on Monday. Hold Xarelto for now. Restart the patients multaq, Coreg, and calcium channel rickey. 02/05/17 Overall doing well without pain. Abdomen is soft and nontender. Continues to have black stools. Xarelto stopped on admission Hgb stable at 9.0 currently. Will continue to monitor carefully. Bowel prep as per Dr Lucio, Planning for EGD and Colonoscopy tomorrow Iron studies pending Verapamil, Coreg and Multaq cardiac meds. Continue to monitor telemetry and vital signs Recheck CBC tomorrow morning to follow blood counts 02/06/2017 The patient underwent EGD and colonoscopy today with results as above. Postprocedure he was eating and drinking well. He was up walking in the halls with the nurse and had no difficulties. He was strongly wanting to go home. Hemoglobin had been essentially stable and was 8.7 today. On exam he is alert and oriented and in no acute distress. Chest is clear to auscultation. Cardiovascular reveals a regular rate and rhythm. Abdomen is soft and nontender. Remedies are free of edema. Dr. Lucio thought the most likely source of the patient's GI bleed was from a diverticuli. His Xarelto and aspirin are currently on hold. Dr. Lucio stated that Xarelto and/or aspirin could likely be restarted in 1 week if the patient had no further bleeding problems. He wanted to wait 1 week because of the biopsies he had performed on the patients colon polyps. I would recommend that the patient follow-up with Dr. Calderon later this week and have CBC performed at that time. Hopefully Dr. Calderon can speak with the patient' s wound care rn and they can decide whether or not to restart Xarelto and/or aspirin. The patient was started on oral B 12 for borderline low B-12 level. Iron studies are pending. The patient is already on oral iron. On 02/06/2017 was felt that the patient was stable for dismissal to home with his . Home medications will be the same other than aspirin and Xarelto which are on hold. Greater than 35 minutes of time was spent on dismissal day. Problems: (1) GI bleed Status: Acute Assessment & Plan: IV protonix, suspect upper source. Dr Lucio to consult for endoscopy. Could theoreticaly be anastamosis of colon but BUN/Cr ratio high , melena reportedly. Typed and Crossed, no blood given yet (2) Anemia Status: Acute Assessment & Plan: NPO for possible EGD in AM, if stable and able to wait for Xarelto to leave system, may be 48-72 hours until gone (with kidney dz maybe a bit longer. He is medically stable forturnatly. Hold ASA. (3) Atrial fibrillation Status: Chronic (4) Coronary artery disease Status: Chronic (5) Chronic kidney disease, stage 2 (mild) Status: Chronic (6) Current use of steroid medication Assessment & Plan: not sure why he's on this, need to figure out Code Status Full Code, unverified Home Meds Active Scripts Cyanocobalamin (Vitamin B-12) (Vitamin B-12) 1,000 Mcg Tablet, 1 TAB PO DAILY, # 90 TAB 3 Refills Prov:NEISHA LEAL MD 02/06/17 Reported Medications Dicyclomine HCl (Dicyclomine HCl) 20 Mg Tablet, 20 MG PO BID 02/03/17 Lactose-Reduced Food (Ensure Enlive) 237 Ml Liquid, 237 ML PO DAILY 02/03/17 Lactobacillus Combo No.10 (Probiotic) 1 Each Capsule, 1 CAP PO DAILY 02/03/17 Dronedarone HCl (Multaq) 400 Mg Tablet, 400 MG PO BID 02/03/17 Carvedilol (Carvedilol) 6.25 Mg Tablet, 6.25 MG PO BID 02/03/17 Potassium Chloride (Potassium Chloride) 20 Meq Tab.er.prt, 20 MG PO BID 02/03/17 Ferrous Sulfate (Iron) 325 Mg Tablet, 325 MG PO BIDWM 02/03/17 Verapamil HCl (Verapamil HCl) 120 Mg Tablet, 120 MG PO DAILY 02/03/17 Furosemide (Furosemide) 20 Mg Tablet, 20 MG PO DAILY 02/03/17 Cetirizine HCl (Zyrtec) 10 Mg Tablet, 10 MG PO DAILY 02/03/17 Fluticasone Propionate (Fluticasone Prop 50 mcg/actuation Nasal [place]) 120 [place] /16 G [place], 2 PUFF EA NOSTRIL DAILY Y for PRN ORDERS 06/16/16 Vit C/E/Zn/Coppr/Lutein/Zeaxan (Preservision Areds 2 Softgel) 1 Each Capsule, 1 CAP PO BID 05/09/16 Prednisone (Prednisone) 5 Mg Tablet, 5 MG PO WB 04/20/16 Acetaminophen (Tylenol) 325 Mg Tablet, 325-650 MG PO Q6H Y for PRN ORDERS 04/20/16 Pravastatin Sodium (Pravastatin Sodium) 40 Mg Tablet, 40 MG PO HS 04/20/16 Cholecalciferol (Vitamin D3) (Vitamin D3) 5,000 Unit Tablet, 5000 UNIT PO DAILY 04/20/16 Pantoprazole (Protonix) 40 Mg Tablet.dr, 40 MG PO DAILY 04/14/09 Discontinued Reported Medications Rivaroxaban (Xarelto) 15 Mg Tablet, 15 MG PO WS 02/03/17 Aspirin (Aspir 81) 81 Mg Tablet.dr, 81 MG PO DAILY 06/03/16 Face to Face Encounter I met with patient on the day of dismissal and discussed follow up appointments , medications, and safety plan. Discharge Disposition Dismiss to home in stable condition Copies To 1: BULMARO LUCIO MD, STEPHANIE L MD Feb 06, 2017 21:19
--- NOTE | 2017-02-07 08:40 | PNPDOC ---
Subjective Date DATE: 02/07/17 TIME: 08:39 Subjective This morning, I did call and talk with Elo Zaldivar, physician assistant laboratory director who has been seeing Mr. Bright Galicia as an outpatient. I did notify her of hospital findings and discharge plans. She will have access to the discharge summary which was faxed to Dr. Calderon, as they are in the same office. Objective Vital Signs Vital signs Vital Signs Date Time Temp Pulse Resp B/P Pulse Ox O2 Delivery O2 Flow Rate FiO2 02/06/17 17:09 81 16 133/69 95 Room Air 02/06/17 15:24 95.8 02/06/17 14:55 3.00 Height (Feet): 6 Height (Inches): 0.00 Weight (Kilograms): 91.700 Laboratory Laboratory Laboratory Tests 02/06/17 04:32 Laboratory Tests 02/06/17 04:32 Assessment & Plan Problems: (1) GI bleed Status: Acute Qualifiers: GI bleed type/associated pathology: unspecified gastrointestinal hemorrhage type Qualified Codes: K92.2 - Gastrointestinal hemorrhage, unspecified Assessment & Plan: IV protonix, suspect upper source. Dr Fatima to consult for endoscopy. Could theoreticaly be anastamosis of colon but BUN/Cr ratio high , melena reportedly. Typed and Crossed, no blood given yet (2) Anemia Status: Acute Qualifiers: Other causes of anemia: acute posthemorrhagic Assessment & Plan: NPO for possible EGD in AM, if stable and able to wait for Xarelto to leave system, may be 48-72 hours until gone (with kidney dz maybe a bit longer. He is medically stable forturnatly. Hold ASA. (3) Atrial fibrillation Status: Chronic (4) Coronary artery disease Status: Chronic Qualifiers: Coronary Disease-Associated Artery/Lesion type: bypass graft [place] vs. transplanted heart: [place] heart Associated angina: without angina Qualified Codes: I25.810 - Atherosclerosis of coronary artery bypass graft(s) without angina pectoris (5) Chronic kidney disease, stage 2 (mild) Status: Chronic (6) Current use of steroid medication Assessment & Plan: not sure why he's on this, need to figure out Assessment 02/05/2017-I reviewed this chart, the patient history, and the [employer]'s/PA's documented findings as above. We discussed and formulated the assessment and plan as above with the additions below.-Dr. Leal The patient was seen today accompanied by his . He states he's doing well. He is tolerating his bowel prep without difficulties. He denies any abdominal pain. He denies any shortness of breath or chest pain. On exam he is alert and in no acute distress. Chest is clear to auscultation. Cardiovascular reveals a regular rate and rhythm. Abdomen is soft and nontender. Extremities are free of edema. Continue to monitor hemoglobin. BUN is decreasing and patient is cardiovascularly stable which is a good sign that acute GI bleed has stopped. Plan for EGD and colonoscopy tomorrow. Continue off of Xarelto which she is on for atrial fibrillation Plan/Intensity of Service 02/05/17 Overall doing well without pain. Abdomen is soft and nontender. Continues to have black stools. Xarelto stopped on admission Hgb stable at 9.0 currently. Will continue to monitor carefully. Bowel prep as per Dr Fatima, Planning for EGD and Colonoscopy tomorrow Iron studies pending Verapamil, Coreg and Multaq cardiac meds. Continue to monitor telemetry and vital signs Recheck CBC tomorrow morning to follow blood counts Code Status Full Code, unverified Hospital Course Summary Disclaimer The hospital course summary below is not to be considered part of the above Progress Note. 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 Mild acute kidney injury-improved with IV fluids Discussed earlier today with Dr. Fatima. We'll plan for EGD and colonoscopy on Monday. Hold Xarelto for now. Restart the patients multaq, Coreg, and calcium channel rickey. 02/05/17 Overall doing well without pain. Abdomen is soft and nontender. Continues to have black stools. Xarelto stopped on admission Hgb stable at 9.0 currently. Will continue to monitor carefully. Bowel prep as per Dr Fatima, Planning for EGD and Colonoscopy tomorrow Iron studies pending Verapamil, Coreg and Multaq cardiac meds. Continue to monitor telemetry and vital signs Recheck CBC tomorrow morning to follow blood counts 02/06/2017 The patient underwent EGD and colonoscopy today with results as above. Postprocedure he was eating and drinking well. He was up walking in the halls with the nurse and had no difficulties. He was strongly wanting to go home. Hemoglobin had been essentially stable and was 8.7 today. On exam he is alert and oriented and in no acute distress. Chest is clear to auscultation. Cardiovascular reveals a regular rate and rhythm. Abdomen is soft and nontender. Remedies are free of edema. Dr. Fatima thought the most likely source of the patient's GI bleed was from a diverticuli. His Xarelto and aspirin are currently on hold. Dr. Fatima stated that Xarelto and/or aspirin could likely be restarted in 1 week if the patient had no further bleeding problems. He wanted to wait 1 week because of the biopsies he had performed on the patients colon polyps. I would recommend that the patient follow-up with Dr. Calderon later this week and have CBC performed at that time. Hopefully Dr. Calderon can speak with the patient' s drier and grinder tender and they can decide whether or not to restart Xarelto and/or aspirin. The patient was started on oral B 12 for borderline low B-12 level. Iron studies are pending. The patient is already on oral iron. On 02/06/2017 was felt that the patient was stable for dismissal to home with his . Home medications will be the same other than aspirin and Xarelto which are on hold. Greater than 35 minutes of time was spent on dismissal day. ALINA LEAL MD Feb 07, 2017 08:40
--- NOTE | 2017-02-07 08:41 | PNPDOC ---
Progress Note Date 02/07/17 This morning, I did call and talk with Elo Zaldivar, physician molding line assistant who has been seeing Mr. Bright Galicia as an outpatient. I did notify her of hospital findings and discharge plans. She will have access to the discharge summary which was faxed to Dr. Calderon, as they are in the same office. ALINA MYLES MD Feb 07, 2017 08:41
--- NOTE | 2017-02-07 16:48 | NUR ---
FOLLOW UP CALL ATTEMPT LEFT MESSAGE.
[2017-02-08 01:19] LABS: IRON % SAT (TRANSF %SAT)(CALC) 11 % (13-59); TOTAL IRON BINDING CAPACITY 300 UG/DL (261-497)
== END 2017-02-06 19:00 | disposition home or self-care (01) | DRG 378 ==
LOC: ED 17:35 → EDHOLD 19:49 → SRG 21:35
PROVIDERS: ADMIT Pediatrics; ATTEND Internal Medicine
PROC: 0DBN8ZX Excision of Sigmoid Colon, Via Natural or Artificial Opening Endoscopic, Diagnostic (ICD-10-PCS; 2017-02-06)
PROC: 0DBK8ZX Excision of Ascending Colon, Via Natural or Artificial Opening Endoscopic, Diagnostic (ICD-10-PCS; 2017-02-06)
PROC: 0DB68ZX Excision of Stomach, Via Natural or Artificial Opening Endoscopic, Diagnostic (ICD-10-PCS; principal; 2017-02-06 13:50)
PROC: 0DBH8ZX Excision of Cecum, Via Natural or Artificial Opening Endoscopic, Diagnostic (ICD-10-PCS; 2017-02-06 13:50)
DX: K92.2 Gastrointestinal hemorrhage, unspecified (principal); D62 Acute posthemorrhagic anemia; I25.810 Atherosclerosis of coronary artery bypass graft(s) without angina pectoris; I48.0 Paroxysmal atrial fibrillation; N18.2 Chronic kidney disease, stage 2 (mild); K57.30 Diverticulosis of large intestine without perforation or abscess without bleeding; K64.8 Other hemorrhoids; K29.50 Unspecified chronic gastritis without bleeding; D12.0 Benign neoplasm of cecum; D12.2 Benign neoplasm of ascending colon; D12.5 Benign neoplasm of sigmoid colon; K64.4 Residual hemorrhoidal skin tags; E78.5 Hyperlipidemia, unspecified; M19.91 Primary osteoarthritis, unspecified site; H91.93 Unspecified hearing loss, bilateral; Z79.82 Long term (current) use of aspirin; Z79.52 Long term (current) use of systemic steroids
CPT/HCPCS: 36415; 36416; 80048; 80053; 82607; 83540; 83550; 85018; 85025; 86850; 86900; 86901; 86920; 86922; 87081; 88305